=== PATIENT | female | born 1935 | race Caucasian/White ===

== ENCOUNTER → 2022-02-28 14:37 | Outpatient (BNVA) | payer MEDICARE, MEDICAID, SELFPAY | PROVIDERS: PCP Registered Nurse; Visit Provider Registered Nurse | DX: M54.50 Low back pain, unspecified (principal) | CPT/HCPCS: 81000 ==

== ENCOUNTER 2022-03-04 01:46 | Inpatient (IN) | payer MEDICARE, MEDICAID, SELFPAY ==
[2022-03-04] VITALS (9 sets, daily range): BP systolic 124–150; BP diastolic 71–78; PULSE 64–97; RESP 16–18; TEMP 36.7–36.8; O2SAT 95–98; BMI 35.4
--- NOTE | 2022-03-04 03:06 | CTR_ITS ---
PROCEDURE INFORMATION: Exam: CT Lumbar Spine Without Contrast Exam date and time: 03/04/2022 3:27 AM Age: 87 years old Clinical indication: Prior surgery; Surgery type: Lumbar (unspecified); Patient HX: C/O low back pain that radiates down to both hips. TECHNIQUE: Imaging protocol: Computed tomography of the lumbar spine without contrast. Radiation optimization: All CT scans at this facility use at least one of these dose optimization techniques: automated exposure control; mA and/or kV adjustment per patient size (includes targeted exams where dose is matched to clinical indication); or iterative reconstruction. COMPARISON: CR XR lumbar spine 2-3V* [id number] 12/27/2021 12:42 PM RADIATION DOSE METRICS: Total DLP (mGy-cm): 1189.53 FINDINGS: Bones/joints: There are 5 non rib-bearing lumbar vertebral segments. Minimal leftward curvature of the mid lumbar spine is seen. Postsurgical changes are seen status post prior L5 laminectomy. Posterior L2 vertebral body lytic lesion is seen with destruction of the posterior wall of the vertebral body (series 6 images 33-38 and series 4 images 32-40). This may represent metastatic disease or myeloma. Further assessment may be performed with MRI and bone scan. Is there are no other definite visualized lytic lesion seen. There is generalized osteopenia. There are no fractures. There is 1 mm retrolisthesis of L2 on L3. The spinous processes appear unremarkable. There are no pars interarticularis defects seen. T12-L1: There is mild diffuse disc bulge. Mild bilateral facet degenerative changes are seen. There is no central spinal stenosis. There is no neuroforaminal stenosis. L1-L2: There is [id number] diffuse disc bulge. Moderate bilateral facet degenerative changes. The lateral recesses appear unremarkable. There is no central spinal stenosis. There is no neuroforaminal stenosis. L2-L3: There is moderate diffuse disc bulge. Moderate bilateral facet degenerative changes are seen. Moderate mass effect on the lateral recesses. There is no central spinal stenosis. Mild bilateral foraminal stenosis. L3-L4: There is moderate diffuse disc bulge. Severe bilateral facet degenerative changes are seen with mild hypertrophy of the ligamentum flavum. Moderate to severe central spinal stenosis on CT. [id number] right and mild left foraminal stenosis. L4-L5: Moderate diffuse disc bulge. Postsurgical changes status post prior L5 laminectomy. Severe bilateral facet degenerative changes. Moderate mass effect on the lateral recesses. There is no central spinal stenosis. Moderate left foraminal stenosis. L5-S1: Moderate diffuse disc bulge with small posterior degenerative osteophytes. Severe bilateral facet degenerative changes. Moderate mass effect on the lateral recesses. There is no central spinal stenosis. Severe right and moderate left foraminal stenosis. Soft tissues: Postsurgical changes of the posterior paraspinal soft tissues are seen at the L5 level. Multiple bilateral renal simple cysts are seen. Recommend correlation with the abdominal CT. Notes: If there is further concern, CT myelogram or MRI of the lumbar spine may be performed for complete assessment. CT/CT lumbar spine recon [id number] IMPRESSION: 1. Posterior L2 vertebral body lytic lesion with destruction of the posterior wall of the vertebral body (series 6 images 33-38 and series 4 images 32-40). This may represent metastatic disease or myeloma. Further assessment may be performed with MRI and bone scan. 2. Degenerative changes of the lumbar spine, as noted above. Moderate to severe central spinal stenosis at the L4-L5 level. Some moderate to severe foraminal stenoses at the L4-L5 and L5-S1 levels, as noted above. Postsurgical changes status post prior L5 laminectomy. COMMENTS: Consistent with the [employer]'s Incidental Findings Committee white paper (J Am Edith Radiol 2018): Any incidental renal lesion less than 1 cm or classified as too small to characterize, or any incidental cystic renal lesion characterized as simple-appearing, is likely benign. No follow-up imaging is recommended for these lesions per consensus recommendations based on imaging criteria.
--- NOTE | 2022-03-04 03:07 | CTR_ITS ---
PROCEDURE INFORMATION: Exam: CT Abdomen And Pelvis Without Contrast Exam date and time: 03/04/2022 3:27 AM Age: 87 years old Clinical indication: Abdominal pain; Prior surgery; Surgery type: Gb. Bilat oophorectomy. Lumbar (unspecified); Patient HX: C/O bilateral flank pain. History of ckd. ; Additional info: Bilateral flank pain, back pain TECHNIQUE: Imaging protocol: Computed tomography of the abdomen and pelvis without contrast. Radiation optimization: All CT scans at this facility use at least one of these dose optimization techniques: automated exposure control; mA and/or kV adjustment per patient size (includes targeted exams where dose is matched to clinical indication); or iterative reconstruction. COMPARISON: CT kidney stone [id number] 02/12/2018 7:38 PM RADIATION DOSE METRICS: Total DLP (mGy-cm): 1189.53 FINDINGS: Lungs: Minimal subpleural scarring is seen. There is mild cardiomegaly noted. Liver: See Gallbladder and bile ducts finding. Gallbladder and bile ducts: Status post prior cholecystectomy. Unchanged mildly dilated extrahepatic/common bile duct is seen with maximal diameter of 9 mm. No calcified stones. Pancreas: Appears unremarkable on the non-contrast CT. No ductal dilation. Spleen: Appears unremarkable on the non-contrast CT. No splenomegaly. Adrenal glands: Normal. No mass. Kidneys and ureters: Unchanged right kidney upper pole 7.5 x 5.5 cm and 4.6 x 4.6 cm simple cysts are seen. Unchanged smaller simple right kidney mid zone and lower pole cysts are seen. Unchanged left kidney mid zone and lower pole simple cysts are seen, the largest measuring 6 x 5.1 cm. Bilateral kidney mid zone 1 x 1 mm calculi are seen. No hydronephrosis, ureterectasis or ureteral calculi. Stomach and bowel: The non-contrast opacified stomach is not well distended with relative gastric fold prominence. Assessment is limited. Tiny suspected hiatal hernia. The noncontrast opacified small bowel loops appear unremarkable. The noncontrast opacified loops of colon show colonic diverticulosis, moderate to severe in the sigmoid colon region. The lack of orally administered contrast material limits assessment. Appendix: No CT evidence of appendicitis. Intraperitoneal space: No abdominal ascites. No free air. Some benign phleboliths seen in the pelvis. Vasculature: No abdominal aortic aneurysm. Unchanged moderate atherosclerotic vascular calcifications. Lymph nodes: No enlarged lymph nodes. Urinary bladder: No bladder debris. No wall thickening. Reproductive: Unremarkable as visualized. Bones/joints: There is generalized osteopenia. Lytic posterior L2 vertebral body lesion is seen, measuring 1.6 x 1.6 cm. The lesion extends into the posterior vertebral body wall. This may represent osseous metastatic disease or myeloma. Further assessment may be performed with bone scan and/or MRI. Severe degenerative disc disease changes with disc space narrowing are seen at the L5-S1 level. Associated severe degenerative facet disease changes are seen with moderate foraminal stenosis. There is generalized osteopenia. Jqds-fy-sqwbrpat bilateral hip, moderate symphysis pubis and moderate bilateral sacroiliac joint degenerative changes are seen. Soft tissues: Unremarkable. CT/CT kidney stone [id number] IMPRESSION: 1. Lytic posterior L2 vertebral body lesion, measuring 1.6 x 1.6 cm. The lesion extends into the posterior vertebral body wall. This may represent osseous metastatic disease or myeloma. Further assessment may be performed with bone scan and/or MRI. 2. Chronic changes, as noted above.
[2022-03-04 03:25] LABS: Basophils % 0.5 %; Eosinophils # 0.1 10^3/uL (0.0-0.8); Eosinophils % 0.7 %; Hematocrit 35.7 % (37.0-47.0); Hemoglobin 10.9 g/dL (11.5-15.3); Lymphocytes # 1.1 10^3/uL (0.8-4.8); Lymphocytes % 12.8 %; Mean Corpuscular HGB Conc 30.5 g/dL (30.0-36.0); Mean Corpuscular Hemoglobin 29.3 pg (28.0-34.0); Mean Platelet Volume 11.3 fL (7.4-10.4); Monocytes # 0.7 10^3/uL (0.2-0.9); Monocytes % 8.1 %; Neutrophils # 6.85 10^3/uL (1.8-7.7); Neutrophils % 77.7 %; Nucleated Red Blood Cells % 0 %; Platelet Count 190 10^3/cmm (130-400); Red Blood Count 3.72 10^6/uL (4.1-5.3); Red Cell Distribution Width 14.1 % (12.1-15.1); White Blood Count 8.8 10^3/uL (4.0-10.0)
--- NOTE | 2022-03-04 03:25 | W.ED.BACK ---
HPI - Back Pain/Injury General: Chief Complaint: Back Pain/Injury Stated Complaint: Hip Pain\Back Pain\Sob Time Seen by Provider: 03/04/22 02:25 Source: patient History of Present Illness: 87-year-old female who had a stroke a couple months ago. She was in the rehab hospital until 1 week ago. After coming home, she began to develop first left then right sided lower back discomfort. It radiates to her thighs and into her groin. She denies fever, vomiting, dysuria. She is chronically incontinent of her urine, but has no bowel incontinence. No numbness to the groin or anesthesia to the genitals. She denies any fall or trauma. Her daughter is with her and confirms MD elicited complaint: back pain Pertinent past history: other Onset (ago): day(s) Timing: constant and progressively worsening Severity: severe Quality: sharp and stabbing Location: lumbar spine Radiation: groin, left upper leg and right upper leg Exacerbating factors: walking Relieving factors: none Associated symptoms: Reports abdominal pain, nausea and urinary urgency; Deny chills, change in bowel habits, dysuria, fecal incontinence, fever(s), hematuria or numbness Review of Systems Const: Denies: fever(s) or chills Card: Denies: chest pain Resp: Reports: dyspnea (When in pain); Denies: productive cough or non-productive cough GI: Reports: abdominal pain and nausea; Denies: fecal incontinence or change in bowel habits : Reports: urinary urgency; Denies: dysuria or hematuria Neuro: Denies: headache(s) [facility] PFS: Medical History (Updated 03/04/22 @ 19:43 by Matt Portillo DO) Actinic keratosis left forearm, removed Anemia At high risk for falls Atrial fibrillation with RVR Basal cell carcinoma left earlobe, removed Cerebrovascular accident with involvement of left side of body CHF (congestive heart failure) Chronic a-fib Chronic anticoagulation Eliquis, for chronic afib Chronic cystitis CKD (chronic kidney disease) COVID-19 (~07/2020) Diabetes Dyslipidemia Feeling of incomplete bladder emptying Glucose intolerance prediabetes, on metformin Hypertension Hypothyroidism Incontinent of urine Left shoulder pain Osteoarthritis of left shoulder Surgical History H/O bilateral oophorectomy History of back surgery lumbar Hx of cholecystectomy several complications requiring additional procedures post op Hx of total knee replacement Family History Father , at age 79 Diabetes Daughter Stroke Family/Other Stroke Aunt Social History Smoking and tobacco status: never smoked Alcohol intake: never Adopted: No Lives independently: Yes Housing: House Current occupational status: retired Female Reproductive History: Para: 6 Spontaneous abortions: Yes (1) Physical Exam Const: GENERAL APPEARANCE: cooperative and frail appearing HENMT: COMMON NORMALS: normocephalic, atraumatic and Normal external nose present HEAD & SCALP: normocephalic and atraumatic NOSE: Normal external nose present Eye: COMMON NORMALS: EOMs intact bilaterally Neck/C-Spine: COMMON NORMALS: full ROM GENERAL: Yes trachea midline CERVICAL SPINE: Yes cervical ROM normal and No Cervical spine tenderness Resp: COMMON NORMALS: normal respiratory effort, No use of accessory muscles and clear to auscultation bilaterally AUSCULTATION: clear to auscultation bilaterally Cardio: COMMON NORMALS: regular rate and regular rhythm RATE: regular rate RHYTHM: regular rhythm GI: COMMON NORMALS: Normal to inspection, nondistended, normoactive bowel sounds present and Soft to palpation PALPATION: Yes Soft to palpation : COMMON NORMALS: Yes no CVA tenderness BLADDER/KIDNEY EXAM: Yes no CVA tenderness Back/Pelvis: COMMON NORMALS: no CVA tenderness OTHER: Exam of the lumbar spine reveals tenderness over the midline at L3-4 and 5 there is less tenderness over the facet joints. Straight leg raise test is negative on the right positive on the left Extremity: COMMON NORMALS: no pedal edema Neuro: AMBROSE COMA SCALE: document GCS findings Ambrose coma scale eye opening: Spontaneous White coma scale verbal response: Orientated Ambrose coma scale motor response: Obey commands White coma scale total score: 15 SPEECH: speech normal Psych: COMMON NORMALS: cooperative Course Vital Signs: Vital signs: Vital Signs Temperature 98.2 F 03/04/22 15:11 Pulse Rate 68 03/04/22 15:11 Respiratory Rate 17 03/04/22 15:11 Blood Pressure 129/78 03/04/22 15:11 Pulse Oximetry 95 03/04/22 15:30 Oxygen Delivery Me thod 03/04/22 15:30 Oxygen Flow Rate 2 03/04/22 15:30 MDM - Back Pain/Injury Medical Decision Making 87-year-old female with back pain and weakness. She has a posterior L2 vertebral body lytic lesion on CT. This gives the appearance of destructive metastatic lesion. Likely the reason for her pain and weakness. Her hemoglobin is 11. BUN 29 creatinine 1.1. She is unable to walk. She lives at home with her daughter currently. She will be admitted for pain control, therapy, etc. She may require extended rehab stay. She is not a good surgical candidate hospitalist will evaluate in the ER. Labs : 03/04/22 03:15 03/04/22 03:15 Radiology Impressions Lumbar Spine CT 03/04/22 03:06 IMPRESSION: 1. Posterior L2 vertebral body lytic lesion with destruction of the posterior wall of the vertebral body (series 6 images 33-38 and series 4 images 32-40). This may represent metastatic disease or myeloma. Further assessment may be performed with MRI and bone scan. 2. Degenerative changes of the lumbar spine, as noted above. Moderate to severe central spinal stenosis at the L4-L5 level. Some moderate to severe foraminal stenoses at the L4-L5 and L5-S1 levels, as noted above. Postsurgical changes status post prior L5 laminectomy. COMMENTS: Consistent with the [employer]'s Incidental Findings Committee white paper (J Am Edith Radiol 2018): Any incidental renal lesion less than 1 cm or classified as too small to characterize, or any incidental cystic renal lesion characterized as simple-appearing, is likely benign. No follow-up imaging is recommended for these lesions per consensus recommendations based on imaging criteria. Abdomen/Pelvis CT 03/04/22 03:07 IMPRESSION: 1. Lytic posterior L2 vertebral body lesion, measuring 1.6 x 1.6 cm. The lesion extends into the posterior vertebral body wall. This may represent osseous metastatic disease or myeloma. Further assessment may be performed with bone scan and/or MRI. 2. Chronic changes, as noted above. Chest CT 03/04/22 11:44 IMPRESSION: 1. L2 vertebral body 15 mm lytic bony lesion seen posteriorly, concerning for metastatic disease, MRI could further evaluate this. 2. Cardiomegaly. 3. Coronary artery atherosclerotic calcifications. 4. Cholecystectomy. 5. Bilateral renal cysts, negative for follow-up advised. 6. Constipation. 7. Diverticulosis without diverticulitis. 8. Scattered prominent mediastinal lymph nodes measuring up to 12 mm, nonspecific. COMMENTS: Consistent with the [employer]'s Incidental Findings Committee white paper (J Am Edith Radiol 2018): Any incidental renal lesion less than 1 cm or classified as too small to characterize, or any incidental cystic renal lesion characterized as simple-appearing, is likely benign. No follow-up imaging is recommended for these lesions per consensus recommendations based on imaging criteria. Laboratory Results WBC 8.8 10^3/uL (4.0-10.0) 03/04/22 03:15 RBC 3.72 10^6/uL (4.1-5.3) L 03/04/22 03:15 Hgb 10.9 g/dL (11.5-15.3) L 03/04/22 03:15 Hct 35.7 % (37.0-47.0) L 03/04/22 03:15 MCV 96.0 fl (81-99) 03/04/22 03:15 MCH 29.3 pg (28.0-34.0) 03/04/22 03:15 MCHC 30.5 g/dL (30.0-36.0) 03/04/22 03:15 RDW 14.1 % (12.1-15.1) 03/04/22 03:15 Plt Count 190 10^3/cmm (130-400) 03/04/22 03:15 MPV 11.3 fL (7.4-10.4) H 03/04/22 03:15 Neut % (Auto) 77.7 % 03/04/22 03:15 Lymph % (Auto) 12.8 % 03/04/22 03:15 [place] % (Auto) 8.1 % 03/04/22 03:15 Eos % (Auto) 0.7 % 03/04/22 03:15 Baso % (Auto) 0.5 % 03/04/22 03:15 Neut # (Auto) 6.85 10^3/uL (1.8-7.7) 03/04/22 03:15 Lymph # (Auto) 1.1 10^3/uL (0.8-4.8) 03/04/22 03:15 [place] # (Auto) 0.7 10^3/uL (0.2-0.9) 03/04/22 03:15 Eos # (Auto) 0.1 10^3/uL (0.0-0.8) 03/04/22 03:15 Baso # (Auto) 0.0 10^3/uL (0.0-0.1) 03/04/22 03:15 Nucleated RBC % (auto) 0 % 03/04/22 03:15 Nucleated RBCs # 0.0 /100WBC 03/04/22 03:15 Sodium 134 mmol/L (136-145) L 03/04/22 03:15 Potassium 4.0 mmol/L (3.5-5.1) 03/04/22 03:15 Chloride 97 mmol/L (98-107) L 03/04/22 03:15 Carbon Dioxide 28 mmol/L (22-29) 03/04/22 03:15 Anion Gap 13.0 (5-19) 03/04/22 03:15 BUN 29 mg/dL (8-23) H 03/04/22 03:15 Creatinine 1.1 mg/dL (0.5-0.9) H 03/04/22 03:15 GFR Calculation Not Reportable 03/04/22 03:15 Glucose 132 mg/dL (65-115) H 03/04/22 03:15 Calculated Osmolality 286 mOsm/kg (285-295) 03/04/22 03:15 Lactate 1.4 mmol/L (0.5-2.2) 03/04/22 03:15 Calcium 9.5 mg/dL (8.5-10.5) 03/04/22 03:15 Iron 25 ug/dL (37-145) L 03/04/22 03:15 TIBC 312 mcg/dl 03/04/22 03:15 % Saturation 8.0 % (20-50) L 03/04/22 03:15 Unsat Iron Binding 287 ug/dL (112-347) 03/04/22 03:15 Total Bilirubin 0.4 mg/dL (0.15-1.2) 03/04/22 03:15 AST 12 U/L (0-32) 03/04/22 03:15 ALT 7 U/L (0-33) 03/04/22 03:15 Alkaline Phosphatase 98 U/L (35-105) 03/04/22 03:15 C-Reactive Protein 42.9 mg/L (0.0-4.9) H 03/04/22 03:15 Total Protein 7.4 g/dL (6.6-8.7) 03/04/22 03:15 Albumin 3.3 g/dL (3.5-5.2) L 03/04/22 03:15 Globulin 4.1 g/dL (1.3-4.6) 03/04/22 03:15 Vitamin B12 321 pg/mL (232-1245) 03/04/22 03:15 Procalcitonin 0.06 ng/mL (0-0.5) 03/04/22 03:15 Discharge Plan Discharge Patient Disposition: Admitted As Inpatient Admit Provider: Taina Alegria Clinical Impression: Intractable back pain, At high risk for falls Condition: Stable Coding Level of Care Code ED Metal Buffer for Anug Fwd Exam Comprehensive
[2022-03-04] MEDS: ondansetron 2 mg/ML SDV 2 mL 4 MG IVP (03:32)
[2022-03-04] MEDS: morphine 4 mg/mL SDV 1 mL 2 MG IVP ×3 (03:32→12:49)
[2022-03-04 03:46] LABS: Lactate (Lactic Acid level) 1.4 mmol/L (0.5-2.2)
[2022-03-04 03:47] LABS: Alanine Aminotransferase 7 U/L (0-33); Albumin Level 3.3 g/dL (3.5-5.2); Alkaline Phosphatase 98 U/L (35-105); Aspartate Amino Transferase 12 U/L (0-32); Blood Urea Nitrogen 29 mg/dL (8-23); C Reactive Protein 42.9 mg/L (0.0-4.9); Calcium 9.5 mg/dL (8.5-10.5); Carbon Dioxide 28 mmol/L (22-29); Chloride 97 mmol/L (98-107); Globulin 4.1 g/dL (1.3-4.6); Glucose 132 mg/dL (65-115); Osmolality Calculated 286 mOsm/kg (285-295); Sodium 134 mmol/L (136-145); Total Bilirubin 0.4 mg/dL (0.15-1.2); Total Protein 7.4 g/dL (6.6-8.7)
[2022-03-04 03:57] LABS: Creatinine Clr Calc Pharmacy 37.7973
--- NOTE | 2022-03-04 11:23 | PM.HP ---
Providers/Chief Complaint Admitting Physician: Taina Alegria MD Primary Care Provider: RUDDY Varma Chief Complaint: Hip Pain\Back Pain\Sob History of Present Illness Evelia Denton is a 87 year old female with past medical history of chronic A. fib, chronic anticoagulation with Eliquis, diabetes mellitus, hypothyroidism, recent admission to the hospital in December for acute CVA, COVID-19 was brought into the ER today because of ongoing severe back pain since Sunday. Patient states she was discharged to senior care and was discharged from senior care back home on last Sunday. Since Sunday she has been having severe back pain which has been getting worse getting aggravated on walking. Not associated with bladder or bowel accidents or perianal anesthesia or numbness or weakness in her legs. States pain is getting worse on standing up radiating to abdomen and bilateral groins. She denies of having any trauma or fall prior to the pain starting. Blood work in the ER showed a hemoglobin of 10.9, sodium of 134, chloride of 97, creatinine of 1.1, calcium of 9.5, AST/ALT of 12/7, CRP of 42.9. Lumbar abdominal CT scan were done and were reported as below. Review of Systems General: Reports: 10 or more systems reviewed and unremarkable except in HPI and below Const: Denies: fever(s), chills, body aches, change in appetite, change in weight, malaise, night sweats, diaphoresis, change in sleep pattern, daytime sleepiness or snoring Eyes: Denies: change in vision, blurry vision, photophobia, eye discomfort or eye discharge ENMT: Denies: throat pain, enlarged tonsils, hoarseness, mouth pain, oral sores, dry mouth, tinnitus, nasal congestion or post nasal drip Card: Denies: chest pain, palpitations, irregular heart rhythm, edema, swelling of feet/ankles, lightheadedness, syncope, pre-syncope, dyspnea on exertion, orthopnea, leg pain with exertion or acrocyanosis Resp: Denies: dyspnea, productive cough, non-productive cough, wheezing, stridor, pain on inspiration, change in phlegm color, hemoptysis or chest congestion GI: Denies: abdominal pain, nausea, vomiting, hematemesis, coffee ground emesis, dysphagia, heartburn, diarrhea, constipation, bloating, GI cramping, change in bowel habits, pain on defecation, hematochezia or melena : Denies: flank pain, dysuria, urinary frequency, urinary urgency, urinary hesitancy, nocturia or hematuria Musc: Denies: neck pain, back pain, extremity pain, joint pain, joint swelling, joint redness, joint stiffness or limited range of motion Neuro: Denies: headache(s), numbness in extremities, weakness in extremities, sensory changes, lack of coordination, difficulty walking, frequent falls, dizziness, vertigo, confusion, Slurred speech present, difficulty communicating thoughts or seizure-like activity Psych: Denies: anxiety, depression, mood swings, panic attacks, hopelessness or irritability Endo: Denies: polyuria, polydipsia, tired all the time, cold intolerance, excessive sweating, flushing or heat intolerance Elvis/Lymph: Denies: easy bruising or easy bleeding All/Imm: Denies: tongue swelling, facial swelling or acute wheezing Medications/Allergies Home Medications Medication Instructions Recorded Confirmed Last Taken Type valsartan 160 mg tablet 160 mg PO DAILY #90 tabs 05/28/19 02/28/22 12/26/21 Rx apixaban 5 mg tablet (Eliquis) 5 mg PO BID 06/02/19 02/28/22 12/26/21 History esomeprazole magnesium 40 mg 40 mg PO DAILY 06/02/19 02/28/22 12/26/21 History capsule,delayed release (Nexium) furosemide 40 mg tablet (Lasix) 40 mg PO QAM 06/02/19 02/28/22 12/26/21 History levothyroxine 100 mcg capsule 100 mcg PO DAILY 06/02/19 02/28/22 12/26/21 History methenamine mandelate 1 gram tablet 1 gm PO BID 06/02/19 02/28/22 12/26/21 History potassium chloride 20 mEq oral 20 meq PO DAILY 06/02/19 02/28/22 12/26/21 History packet Diabetic Shoes #1 ea 06/09/19 02/28/22 Unknown Rx ascorbic acid (vitamin C) 1,000 mg 1,000 mg PO BID 11/10/19 02/28/22 12/26/21 History tablet ferrous sulfate 325 mg (65 mg 325 mg PO DAILY 11/10/19 02/28/22 12/26/21 History iron) tablet (Feosol) levocetirizine 5 mg tablet 5 mg PO DAILY 11/10/19 02/28/22 12/26/21 History Incontinent supplies #120 ea 08/23/20 02/28/22 Unknown Rx amlodipine 5 mg tablet 5 mg PO DAILY 12/27/21 02/28/22 12/26/21 History calcium carbonate 500 mg calcium 500 mg PO DAILY 12/27/21 02/28/22 12/26/21 History (1,250 mg) tablet ergocalciferol (vitamin D2) 1,250 1,250 mcg PO Q7D 12/27/21 02/28/22 12/25/21 History mcg (50,000 unit) capsule fluticasone propionate 50 1 spray intranasal BID PRN Nasal 12/27/21 02/28/22 Unknown History mcg/actuation nasal Congestion spray,suspension (Flonase Allergy Relief) metformin 500 mg tablet,extended 500 mg PO DAILY 12/27/21 02/28/22 12/26/21 History release 24 hr tramadol 50 mg tablet 25 mg PO BID PRN Pain 12/27/21 02/28/22 Unknown History atorvastatin 40 mg tablet 80 mg PO BEDTIME #30 tabs 12/30/21 02/28/22 Unknown Rx metoprolol tartrate 25 mg tablet 25 mg PO BID@ #60 tabs 12/30/21 02/28/22 Unknown Rx Arm Supports for walker #1 ea 03/02/22 03/02/22 Unknown Rx Lift Chair #1 ea 03/02/22 03/02/22 Unknown Rx Allergies Allergy/AdvReac Type Severity Reaction Status Date / Time cephalexin [From Keflex] Allergy ALGY-Rash Verified 01/05/22 10:58 Iodinated Contrast Media Allergy ALGY-Swell Verified 01/05/22 10:58 Lip/Tongue/Throat Penicillins Allergy ALGY-Rash Verified 01/05/22 10:58 PFSH Acute PFSH: Medical History (Updated 03/04/22 @ 11:28 by Ryan Higginbotham MD) Actinic keratosis left forearm, removed Anemia At high risk for falls Atrial fibrillation with RVR Basal cell carcinoma left earlobe, removed Cerebrovascular accident with involvement of left side of body CHF (congestive heart failure) Chronic a-fib Chronic anticoagulation Eliquis, for chronic afib Chronic cystitis CKD (chronic kidney disease) COVID-19 (~07/2020) Diabetes Dyslipidemia Feeling of incomplete bladder emptying Glucose intolerance prediabetes, on metformin Hypertension Hypothyroidism Incontinent of urine Left shoulder pain Osteoarthritis of left shoulder Surgical History H/O bilateral oophorectomy History of back surgery lumbar Hx of cholecystectomy several complications requiring additional procedures post op Hx of total knee replacement Family History Father , at age 79 Diabetes Daughter Stroke Family/Other Stroke Aunt Social History Smoking and tobacco status: never smoked Alcohol intake: never Adopted: No Lives independently: Yes Housing: House Current occupational status: retired Female Reproductive History: Para: 6 Spontaneous abortions: Yes (1) Vitals/I&O/Wt Last Vital Signs Temp 98.0 F 03/04/22 01:51 Pulse 64 03/04/22 08:00 Resp 16 03/04/22 06:58 BP 130/77 03/04/22 08:00 Pulse Ox 97 03/04/22 08:00 O2 Del Method 03/04/22 09:15 O2 Flow Rate 2 03/04/22 06:58 Weight last 48 hrs Weight 90.718 kg Physical Exam Narrative: General: No acute distress, AO x3 HEENT: PERRLA, pupils bilaterally equal and reactive Chest: Normal vesicular breath sounds, no added sounds, equal good air entry bilaterally CVS: S1-S2 regular, no murmurs, no tachycardia, no gallops, no rubs Abdomen: Soft, nontender, no organomegaly, bowel sounds present Neuro: No focal deficits, no facial deformity, AO x3, power 5/5 in all limbs Data : 03/04/22 03:15 03/04/22 03:15 Other Labs: Radiology Impressions Lumbar Spine CT 03/04/22 03:06 IMPRESSION: 1. Posterior L2 vertebral body lytic lesion with destruction of the posterior wall of the vertebral body (series 6 images 33-38 and series 4 images 32-40). This may represent metastatic disease or myeloma. Further assessment may be performed with MRI and bone scan. 2. Degenerative changes of the lumbar spine, as noted above. Moderate to severe central spinal stenosis at the L4-L5 level. Some moderate to severe foraminal stenoses at the L4-L5 and L5-S1 levels, as noted above. Postsurgical changes status post prior L5 laminectomy. COMMENTS: Consistent with the [employer]'s Incidental Findings Committee white paper (J Am Edith Radiol 2018): Any incidental renal lesion less than 1 cm or classified as too small to characterize, or any incidental cystic renal lesion characterized as simple-appearing, is likely benign. No follow-up imaging is recommended for these lesions per consensus recommendations based on imaging criteria. Abdomen/Pelvis CT 03/04/22 03:07 IMPRESSION: 1. Lytic posterior L2 vertebral body lesion, measuring 1.6 x 1.6 cm. The lesion extends into the posterior vertebral body wall. This may represent osseous metastatic disease or myeloma. Further assessment may be performed with bone scan and/or MRI. 2. Chronic changes, as noted above. A&P Assessment and plan (1) Intractable back pain: Appreciate CT lumbar spine. Consistent for a possible lytic lesion. Pain not managed by outpatient oral pain management. Start on IV morphine 2 mg every 4 hour as needed. Tramadol 50 mg every 6 hour as needed. Physical therapy evaluation Will consult orthopedic spine once available tomorrow for further evaluation and management. For further evaluation for possible malignancy and multiple myeloma we will send UPEP/SPEP, electrophoresis, light chain assay, CT chest, peripheral smear. (2) Hypertension: Qualifiers: Hypertension type: primary hypertension Qualified Code(s): I10 - Essential (primary) hypertension (3) Atrial fibrillation with RVR: (4) Chronic anticoagulation: Plan History of recent stroke History of atrial fibrillation History of chronic anticoagulation History of hypertension History of hypothyroidism Recent echocardiogram from December 2021 shows a normal EF, diastolic dysfunction, biatrial enlargement. Continue other chronic medications. Full code. Famotidine for VT prophylaxis Eliquis for prior DVT prophylaxis Attestations Medical Necessity Statement*: Admission under observation for less than 2 midnights for management of intractable back pain while further etiology is sought. Time Spent in Patient Care: Greater than 35 minutes Coding Level of Care Code Acute Rn Patient Care for Chg Fwd Diagnoses Intractable back pain M54.9 Hypertension I10 Hypertension type: primary hypertension Atrial fibrillation with RVR I48.91 Chronic anticoagulation Z79.01
[2022-03-04] MEDS: sodium chloride 0.9% 1,000 ML 50 ML IV (11:28)
--- NOTE | 2022-03-04 11:44 | CTR_ITS ---
PROCEDURE INFORMATION: Exam: CT Chest Without Contrast; Diagnostic Exam date and time: 03/04/2022 2:11 PM Age: 87 years old Clinical indication: Other: Back pain; Additional info: Possible malignancy TECHNIQUE: Imaging protocol: Diagnostic computed tomography of the chest without contrast. Radiation optimization: All CT scans at this facility use at least one of these dose optimization techniques: automated exposure control; mA and/or kV adjustment per patient size (includes targeted exams where dose is matched to clinical indication); or iterative reconstruction. COMPARISON: CR XR chest 1V portable [id number] 05/25/2019 7:00 PM RADIATION DOSE METRICS: Total DLP (mGy-cm): 595.75 FINDINGS: Lungs: Unremarkable. No consolidation. No masses. Pleural spaces: Unremarkable. No pneumothorax. No pleural effusion. Heart: Cardiomegaly. Coronary artery atherosclerotic calcifications. Lymph nodes: Scattered prominent mediastinal lymph nodes measuring up to 12 mm, nonspecific. Vasculature: Unremarkable. No aortic aneurysm. Gallbladder and bile ducts: Cholecystectomy. Kidneys and ureters: Bilateral renal cysts, negative for follow-up advised. Stomach and bowel: Constipation. Diverticulosis without diverticulitis. Bones/joints: L2 vertebral body 15 mm lytic bony lesion seen posteriorly, concerning for metastatic disease, MRI could further evaluate this. Soft tissues: Hepatic dome 14 mm benign-appearing fat density lesion. CT/CT chest wo con [id number] IMPRESSION: 1. L2 vertebral body 15 mm lytic bony lesion seen posteriorly, concerning for metastatic disease, MRI could further evaluate this. 2. Cardiomegaly. 3. Coronary artery atherosclerotic calcifications. 4. Cholecystectomy. 5. Bilateral renal cysts, negative for follow-up advised. 6. Constipation. 7. Diverticulosis without diverticulitis. 8. Scattered prominent mediastinal lymph nodes measuring up to 12 mm, nonspecific. COMMENTS: Consistent with the [employer]'s Incidental Findings Committee white paper (J Am Edith Radiol 2018): Any incidental renal lesion less than 1 cm or classified as too small to characterize, or any incidental cystic renal lesion characterized as simple-appearing, is likely benign. No follow-up imaging is recommended for these lesions per consensus recommendations based on imaging criteria.
[2022-03-04 12:27] LABS: Iron 25 ug/dL (37-145); Total Iron Binding Capacity 312 mcg/dl; Unsaturated Iron Binding 287 ug/dL (112-347)
[2022-03-04 12:43] LABS: Procalcitonin 0.06 ng/mL (0-0.5); Vitamin B12 321 pg/mL (232-1245)
[2022-03-04 13:03] LABS: Calcium 9.2 mg/dL (8.5-10.5)
[2022-03-04 13:12] LABS: Thyroid Stimulating Hormone 1.88 uIU/mL (0.27-4.20)
[2022-03-04 13:22] LABS: Folate Level 8.3 ng/mL (4.8-37.3)
[2022-03-04 14:14] LABS: Parathyroid Hormone 27.7 pg/mL (15-65)
[2022-03-04 14:57] LABS: LAB Peripheral Smear Sent for Review
[2022-03-04 15:21] LABS: Add Urine Microscopic? YES; Bilirubin Urine Neg (Negative); Blood Urine 2+ (Negative); Glucose Urine UA Norm (Normal); Ketones Urine Negative (Negative); Leukocyte Esterase Urine 2+ (Negative); Nitrate Urine Positive (Negative); Protein Urine Neg (Negative); Urine Appearance SL Hazy (CLEAR); Urine Color Yellow (Yellow); Urobilinogen Urine Norm (Negative); pH Urine 5 (5-7)
[2022-03-04 15:22] LABS: Add Urine Culture? Yes; Bacteria Urine 2+ /hpf; WBC Urine >100 /hpf (0-5)
[2022-03-04] MEDS: famotidine 20 mg Tablet PO (17:12)
[2022-03-04] MEDS: ferrous gluconate 324 mg Tablet PO (17:12)
[2022-03-04] MEDS: docusate sodium 100 mg Capsule PO (17:12)
[2022-03-04] MEDS: sennosides 8.6 mg Tablet 17.2 MG PO (20:46)
[2022-03-04] MEDS: apixaban 5 mg Tablet PO (20:46)
[2022-03-04] MEDS: atorvastatin 40 mg Tablet 80 MG PO (20:47)
[2022-03-04] MEDS: acetaminophen 325 mg Tablet 650 MG PO (22:32)
[2022-03-05] VITALS (12 sets, daily range): BP systolic 105–159; BP diastolic 58–78; PULSE 60–93; RESP 15–16; TEMP 36.5–36.7; O2SAT 96–99
[2022-03-05] MEDS: acetaminophen 325 mg Tablet 650 MG PO ×3 (04:17→20:54)
[2022-03-05] MEDS: sodium chloride 0.9% 1,000 ML 50 ML IV ×2 (04:18→23:05)
[2022-03-05 05:21] LABS: Basophils % 0.6 %; Eosinophils # 0.1 10^3/uL (0.0-0.8); Eosinophils % 2.5 %; Hematocrit 32.6 % (37.0-47.0); Hemoglobin 9.9 g/dL (11.5-15.3); Mean Corpuscular HGB Conc 30.4 g/dL (30.0-36.0); Mean Corpuscular Hemoglobin 29.6 pg (28.0-34.0); Mean Corpuscular Volume 97.6 fl (81-99); Mean Platelet Volume 11.4 fL (7.4-10.4); Monocytes # 0.5 10^3/uL (0.2-0.9); Monocytes % 9.4 %; Neutrophils % 67.3 %; Nucleated Red Blood Cells % 0 %; Platelet Count 153 10^3/cmm (130-400); Red Blood Count 3.34 10^6/uL (4.1-5.3); Red Cell Distribution Width 14.1 % (12.1-15.1); White Blood Count 5.2 10^3/uL (4.0-10.0)
[2022-03-05 05:35] LABS: Estmated Average Glucose 100; Hemoglobin A1C 5.1 % (4.0-6.0)
[2022-03-05 05:46] LABS: Chol HDL Ratio 1.83 mg/dL (0.0-4.40); Cholesterol 88 mg/dL (0-200); HDL Cholesterol 48 mg/dL (60-100); LDL Cholesterol Calculated 23 mg/dL (50-129); Triglycerides 84 mg/dL (0-150); VLDL Cholestrol Calculation 17 mg/dL (0-30)
[2022-03-05 05:47] LABS: Alanine Aminotransferase < 5 U/L (0-33); Albumin Level 2.8 g/dL (3.5-5.2); Alkaline Phosphatase 72 U/L (35-105); Anion Gap 13.1 (5-19); Aspartate Amino Transferase 9 U/L (0-32); Blood Urea Nitrogen 25 mg/dL (8-23); Carbon Dioxide 27 mmol/L (22-29); Chloride 103 mmol/L (98-107); Globulin 3.4 g/dL (1.3-4.6); Glucose 101 mg/dL (65-115); Osmolality Calculated 293 mOsm/kg (285-295); Potassium 4.1 mmol/L (3.5-5.1); Sodium 139 mmol/L (136-145); Total Bilirubin 0.4 mg/dL (0.15-1.2); Total Protein 6.2 g/dL (6.6-8.7)
[2022-03-05] MEDS: ferrous gluconate 324 mg Tablet PO ×2 (09:33→18:13)
[2022-03-05] MEDS: calcium carbonate 500 mg Chew Tablet PO (09:33)
[2022-03-05] MEDS: docusate sodium 100 mg Capsule PO ×2 (09:33→18:13)
[2022-03-05] MEDS: levothyroxine 100 mcg Tablet PO (09:33)
[2022-03-05] MEDS: famotidine 20 mg Tablet PO ×2 (09:33→18:13)
[2022-03-05] MEDS: amlodipine 5 mg Tablet PO (09:34)
[2022-03-05] MEDS: losartan 50 mg Tablet PO (09:34)
[2022-03-05] MEDS: nitrofurantoin SR (BID) 100 mg Capsule PO ×2 (09:35→18:12)
[2022-03-05] MEDS: apixaban 5 mg Tablet PO ×2 (09:38→20:54)
--- NOTE | 2022-03-05 09:52 | PC.NURSE ---
Notified Dr. Mcpherson Methanemine Mandelate medication is not available in pharmacy. Notified patients daughter which stated would bring this evening.
--- NOTE | 2022-03-05 11:30 | PM.PN ---
Subjective Subjective: Seen this morning. Patient asking what do think is wrong with me Urine culture positive for gram-negative rods. Patient has overall she feels bad. Her back also hurts. Vitals/I&O/Wt Last Vital Signs Temp 98.0 F 03/05/22 08:00 Pulse 93 03/05/22 09:01 Resp 15 03/05/22 08:00 BP 159/68 03/05/22 09:34 Pulse Ox 99 03/05/22 09:01 O2 Del Method 03/05/22 09:01 O2 Flow Rate 2 03/05/22 09:01 03/04/22 03/05/22 03/05/22 22:59 06:59 14:59 Intake Total 240 / 720 841.667 / 1561.667 360 / 360 Balance 240 / 720 841.667 / 1561.667 360 / 360 Weight last 48 hrs Weight 90.718 kg Physical Exam Narrative: General: No acute distress, AO x3 HEENT: EOMI Chest: Clear to auscultation bilaterally but diminished at bases. CVS: S1-S2 regular, no murmurs, Abdomen: Soft, nontender, no organomegaly, bowel sounds present Neuro: Nonfocal Urinary Catheter Management: Marin: Cath Placed During This Visit: yes Reason for Continuing Indwelling Catheter: Required Immobilization for Trauma or Surgery or Anesthesia Urinary Catheter Date of Insertion: 03/04/22 Urinary Catheter Time of Insertion: 15:03 Data : 03/05/22 04:24 03/05/22 04:24 Micro: Microbiology 03/04/22 15:02 Urine Culture - Preliminary Urine,Clean Catch Gram Negative Rods 03/04/22 15:53 Blood Culture - Preliminary Blood SPECIMEN COLLECTED 03/04/22 15:48 Blood Culture - Preliminary Blood SPECIMEN COLLECTED A&P Assessment and plan (1) Intractable back pain: Appreciate CT lumbar spine. Consistent for a possible lytic lesion. Pain not managed by outpatient oral pain management. Start on IV morphine 2 mg every 4 hour as needed. Tramadol 50 mg every 6 hour as needed. Physical therapy evaluation Will consult orthopedic spine once available tomorrow for further evaluation and management. Dr. Garibay is not on-call today. For further evaluation for possible malignancy and multiple myeloma we will send UPEP/SPEP, electrophoresis, light chain assay, CT chest, peripheral smear. CT chest: 1. L2 vertebral body 15 mm lytic bony lesion seen posteriorly, concerning for metastatic disease, MRI could further evaluate this. 2. Cardiomegaly. 3. Coronary artery atherosclerotic calcifications. 4. Cholecystectomy. 5. Bilateral renal cysts, negative for follow-up advised. 6. Constipation. 7. Diverticulosis without diverticulitis. 8. Scattered prominent mediastinal lymph nodes measuring up to 12 mm, nonspecific. CT abdomen 1. Lytic posterior L2 vertebral body lesion, measuring 1.6 x 1.6 cm. The lesion extends into the posterior vertebral body wall. This may represent osseous metastatic disease or myeloma. Further assessment may be performed with bone scan and/or MRI. 2. Chronic changes, as noted above. We will discussed with Dr. Garibay tomorrow and possibly discharge patient for outpatient follow-up. (2) Hypertension: Qualifiers: Hypertension type: primary hypertension Qualified Code(s): I10 - Essential (primary) hypertension (3) Atrial fibrillation with RVR: (4) Chronic anticoagulation: Plan History of recent stroke History of atrial fibrillation History of chronic anticoagulation History of hypertension History of hypothyroidism Recent echocardiogram from December 2021 shows a normal EF, diastolic dysfunction, biatrial enlargement. Continue other chronic medications. Full code. Famotidine for VT prophylaxis Eliquis for prior DVT prophylaxis Attestations Medical Necessity Statement*: Continue pain medication during hospital stay. We will discussed with Dr. Garibay tomorrow and possibly discharge patient for outpatient follow-up. Patient however will need to stay in the hospital until urine culture finalizes. Coding Level of Care Code Acute Premium Cancellation Clerk for [facility] Fwd Diagnoses Intractable back pain M54.9 Hypertension I10 Hypertension type: primary hypertension Atrial fibrillation with RVR I48.91 Chronic anticoagulation Z79.01
[2022-03-05] MEDS: NON-FORMULARY MEDICATION (Methenamine Hippurate 1 gram tablet) 1 EACH PO (18:13)
[2022-03-05] MEDS: sennosides 8.6 mg Tablet 17.2 MG PO (20:54)
[2022-03-05] MEDS: atorvastatin 40 mg Tablet 80 MG PO (20:54)
[2022-03-06] VITALS (8 sets, daily range): BP systolic 155–177; BP diastolic 64–88; PULSE 74–112; RESP 16–18; TEMP 36.4–36.8; O2SAT 92–99
[2022-03-06] MEDS: morphine 4 mg/mL SDV 1 mL 2 MG IVP (00:56)
[2022-03-06 04:49] LABS: Basophils % 0.7 %; Eosinophils # 0.2 10^3/uL (0.0-0.8); Eosinophils % 3.7 %; Hematocrit 32.7 % (37.0-47.0); Hemoglobin 9.8 g/dL (11.5-15.3); Lymphocytes # 0.8 10^3/uL (0.8-4.8); Lymphocytes % 20.1 %; Mean Corpuscular Hemoglobin 29.2 pg (28.0-34.0); Mean Corpuscular Volume 97.3 fl (81-99); Mean Platelet Volume 11.1 fL (7.4-10.4); Monocytes # 0.4 10^3/uL (0.2-0.9); Monocytes % 8.7 %; Neutrophils # 2.66 10^3/uL (1.8-7.7); Neutrophils % 66.3 %; Nucleated Red Blood Cells % 0 %; Platelet Count 169 10^3/cmm (130-400); Red Blood Count 3.36 10^6/uL (4.1-5.3); Red Cell Distribution Width 13.6 % (12.1-15.1)
[2022-03-06 05:22] LABS: Blood Urea Nitrogen 16 mg/dL (8-23); Calcium 8.9 mg/dL (8.5-10.5); Carbon Dioxide 28 mmol/L (22-29); Chloride 105 mmol/L (98-107); Glucose 116 mg/dL (65-115); Osmolality Calculated 294 mOsm/kg (285-295); Sodium 141 mmol/L (136-145)
[2022-03-06] MEDS: NON-FORMULARY MEDICATION (Methenamine Hippurate 1 gram tablet) 1 EACH PO ×2 (08:45→17:13)
[2022-03-06] MEDS: amlodipine 5 mg Tablet PO (08:46)
[2022-03-06] MEDS: ferrous gluconate 324 mg Tablet PO ×2 (08:46→17:13)
[2022-03-06] MEDS: docusate sodium 100 mg Capsule PO ×2 (08:46→17:13)
[2022-03-06] MEDS: levothyroxine 100 mcg Tablet PO (08:46)
[2022-03-06] MEDS: losartan 50 mg Tablet PO (08:46)
[2022-03-06] MEDS: famotidine 20 mg Tablet PO ×2 (08:46→17:13)
[2022-03-06] MEDS: calcium carbonate 500 mg Chew Tablet PO (08:47)
[2022-03-06] MEDS: nitrofurantoin SR (BID) 100 mg Capsule PO ×2 (08:47→17:13)
[2022-03-06] MEDS: apixaban 5 mg Tablet PO ×2 (08:54→21:15)
--- NOTE | 2022-03-06 08:59 | P.PN_ITS ---
Subjective Subjective: Seen this morning. Patient will be going for MRI today. She is requesting to remove her Marin. Vitals/I&O/Wt Last Vital Signs Temp 98 F 03/06/22 12:00 Pulse 112 H 03/06/22 12:00 Resp 16 03/06/22 12:00 BP 158/80 03/06/22 12:00 Pulse Ox 94 03/06/22 12:00 O2 Del Method 03/06/22 12:00 O2 Flow Rate 2 03/06/22 08:00 03/05/22 03/06/22 03/06/22 22:59 06:59 14:59 Intake Total 480 / 1080 939.167 / 2019.167 240 / 240 Output Total 1400 / 1400 Balance 480 / 1080 -460.833 / 619.167 240 / 240 Weight last 48 hrs Weight 92.215 kg Physical Exam Narrative: General: No acute distress, AO x3 HEENT: EOMI Chest: Clear to auscultation bilaterally but diminished at bases. CVS: S1-S2 regular, no murmurs, Abdomen: Soft, nontender, no organomegaly, bowel sounds present Neuro: Nonfocal Lumbar region L4-L5 back is tender to palpation, mild paraspinal muscle tenderness also present. Urinary Catheter Management: Marin: Cath Placed During This Visit: yes, but has since been removed by the nurse Reason for Continuing Indwelling Catheter: Acute Urinary Retention or Obstruction Urinary Catheter Date of Insertion: 03/04/22 Urinary Catheter Time of Insertion: 15:03 Date Urinary Catheter Removed: 03/06/22 Time Urinary Catheter Discontinued: 10:30 Data : 03/06/22 04:28 03/06/22 04:28 Micro: Microbiology 03/04/22 15:02 Urine Culture - Final Urine,Clean Catch Escherichia coli esbl 03/04/22 15:53 Blood Culture - Preliminary Blood NEGATIVE TO DATE 03/04/22 15:48 Blood Culture - Preliminary Blood NEGATIVE TO DATE A&P Assessment and plan (1) Intractable back pain: Appreciate CT lumbar spine. Consistent for a possible lytic lesion. Pain not managed by outpatient oral pain management. Start on IV morphine 2 mg every 4 hour as needed. Tramadol 50 mg every 6 hour as needed. Physical therapy evaluation For further evaluation for possible malignancy and multiple myeloma we will send UPEP/SPEP, electrophoresis, light chain assay, CT chest, peripheral smear. CT chest: 1. L2 vertebral body 15 mm lytic bony lesion seen posteriorly, concerning for metastatic disease, MRI could further evaluate this. 2. Cardiomegaly. 3. Coronary artery atherosclerotic calcifications. 4. Cholecystectomy. 5. Bilateral renal cysts, negative for follow-up advised. 6. Constipation. 7. Diverticulosis without diverticulitis. 8. Scattered prominent mediastinal lymph nodes measuring up to 12 mm, nonspecific. CT abdomen 1. Lytic posterior L2 vertebral body lesion, measuring 1.6 x 1.6 cm. The lesion extends into the posterior vertebral body wall. This may represent osseous metastatic disease or myeloma. Further assessment may be performed with bone scan and/or MRI. 2. Chronic changes, as noted above. 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 MRI to be done today UTI: E. coli ESBL Sensitive to nitrofurantoin. We will treat x7 days total. (2) Hypertension: Qualifiers: Hypertension type: primary hypertension Qualified Code(s): I10 - Essential (primary) hypertension (3) Atrial fibrillation with RVR: (4) Chronic anticoagulation: Plan History of recent stroke History of atrial fibrillation History of chronic anticoagulation History of hypertension History of hypothyroidism Recent echocardiogram from December 2021 shows a normal EF, diastolic dysfunction, biatrial enlargement. Continue other chronic medications. Full code. Famotidine for VT prophylaxis Eliquis for prior DVT prophylaxis Attestations Medical Necessity Statement*: Plan for MRI today. Further evaluation after results are back. Coding Level of Care Code Acute Scrap Iron Cutter for Chg Fwd Diagnoses Intractable back pain M54.9 Hypertension I10 Hypertension type: primary hypertension Atrial fibrillation with RVR I48.91 Chronic anticoagulation Z79.01
--- NOTE | 2022-03-06 09:30 | MR_ITS ---
WS: [id number] MRI LUMBAR SPINE NONCONTRAST TECHNIQUE: Sagittal T1, T2 and STIR imaging. Axial T1 and T2 imaging. CLINICAL INFORMATION: intractatble back pain, lytic lesion COMPARISON: CT March 04, 2022 FINDINGS: Mild lumbar curve. Mild compression superior endplate L2 with edema. Suspected metastatic lesion invo lving the posterior L2 vertebral body is unchanged from the recent CT. This involves the posterior co rtex. This measures approximately 1.6 x 1.6 cm. No other visualized suspicious lesions. L1-L2: Mild annular bulging. Slight effacement of ventral thecal sac. Mild facet arthropathy. Spinal canal and foramen are patent. L2-L3: Mild annular bulging. Mild central canal stenosis. Impingement subarticular recess bilaterally . Mild facet arthropathy. Mild RIGHT foraminal narrowing. L3-L4: Mild annular bulging. Severe central canal stenosis. Impingement traversing L4 nerve roots juan aterally. Moderate facet arthropathy. Mild LEFT foraminal narrowing. L4-L5: Prior laminectomy defects. Disc bulging with narrowing of the subarticular recess bilaterally RIGHT greater than LEFT. Moderate facet arthropathy. Mild LEFT and no significant RIGHT foraminal geraldine rowing. Impingement on the exiting LEFT L4 nerve root. L5-S1: Disc osteophyte complex with endplate ridging. Moderate central canal stenosis. Impingement on the traversing S1 nerve roots bilaterally. Moderate bilateral foraminal narrowing. Mild facet arthro ericka. Polycystic kidneys bilaterally partially visualized. MR/MR lumbar spine wo con* [id number] IMPRESSION: 1. Suspected metastatic lesion involving the posterior L2 vertebral body with destruction of the posterior cortex. This is unchanged since recent CT. Mild pa thologic compression superior endplate L2 with edema. Edema extends into the LE FT pedicle. 2. Mild central canal stenosis L2-L3. Severe central canal stenosis L3-L4. Mod erate central stenosis L5-S1. 3. Mild to moderate bony foraminal narrowing at RIGHT L2-L3, LEFT L3-L4, LEFT L4-L5 and bilateral L5-S1. 4. Polycystic kidneys bilaterally.
[2022-03-06] MEDS: metoclopramide 5 mg/mL SDV 2 mL IVP (10:24)
--- NOTE | 2022-03-06 10:42 | PC.CHAP ---
Pastoral Care Encounter/Spiritual Assessment Type of Contact [] Declined ship washer visit [] Patient/Family/Request visit [] Outpatient visit [] Follow-up visit [] Physician referral [] Code/Alert [x] Routine visit [] Staff referral [] Actively dying [x] Patient sleeping [] Family support [] [] Out of room [] Palliative care [] [] Receiving care in room [] Pre-surgical visit [] Trauma [] Long length of stay [] ICU visit [] Other: Relational/Emotional Strength [] Patient feels connected with others/family/visitors/staff [] Distress [] Loneliness/isolation [] Abandonment Spirituality of Patient [] Person of Alicia [] Attends Mormonism of their Alicia [] Believes in Prayer [] Reads Bible or Church materials [] There are Spiritual issues to be addressed Assistant Hall Director Interventions [] Prayer [] Active listening [] Non-anxious presence [] Spiritual/emotional support [] Crisis/trauma care [] Spiritual counseling [] Bereavement support [] Provided bereavement packet [] Provided Bible/devotional materials [] Provided toy/stuffed animal, coloring book to patient or family member [] Provided Communion [] Anointing/[place] [] Salvation [] Completed spiritual assessment [] Other: Impact on Illness or Injury [] Angry [] Fearful [] Anxious [] Often cries [] Exhaustion [] Unable to work [] Unable to attend church [] Unable to walk/stand [] Unable to read [] Unable to drive [] Unable to eat/drink [] Unable to sleep [] Unable to be with family [] Patient intubated [] Other: Summary Time spent with patient
[2022-03-06] MEDS: ALPRAZolam 0.5 mg Tablet 0.25 MG PO (12:03)
[2022-03-06 13:28] LABS: Creatinine, Random Urine 133 mg/dL (20-275); Protein, Total, Random 20 mg/dL (5-24); Protein/Creatinine Ratio 150 mg/g creat (24-184)
--- NOTE | 2022-03-06 16:54 | PC.NURSE ---
Marin Catheter removed at 10:30 am per verbal order from Dr. Butt
--- NOTE | 2022-03-06 17:28 | PM.CONSULT ---
Providers/Reason For Consult Consulting Physician/Specialty*: Ortho Spine Reason for Consult*: Back Pain Attending Physician: Aundrea Butt MD Primary Care Provider: RUDDY Varma History of Present Illness History of Present Illness Evelia Denton is a 87 year old female valuated in room 254 bed 1 sitting at her bedside and having p.m. meal no family was present. Patient appears in no apparent distress. Discussed about back pain she states has been ongoing for about a week. She denies a fall all of her pain is localized in her low back. She states bending twisting walking has increased her pain rest gives her some short-term relief. She describes pain through her abdominal area in the hip region. Describes as aching sharp in nature. Denies any loss of bowel or bladder control. She states the only cancer history she knows of is melanoma on her left earlobe. Denies any night sweats or fevers. Activities seem to make her symptoms much worse. An extensive review of the patient's past medical history, surgical history, allergies, medications, family history, social history, and review of systems was completed Review of Systems General: Reports: 10 or more systems reviewed and unremarkable except in HPI and below Const: Denies: fever(s), chills, body aches, change in appetite, change in weight, malaise, night sweats, diaphoresis, change in sleep pattern, daytime sleepiness or snoring Eyes: Denies: change in vision, blurry vision, photophobia, eye discomfort or eye discharge ENMT: Denies: throat pain, enlarged tonsils, hoarseness, mouth pain, oral sores, dry mouth, tinnitus, nasal congestion or post nasal drip Card: Denies: chest pain, palpitations, irregular heart rhythm, edema, swelling of feet/ankles, lightheadedness, syncope, pre-syncope, dyspnea on exertion, orthopnea, leg pain with exertion or acrocyanosis Resp: Denies: dyspnea, productive cough, non-productive cough, wheezing, stridor, pain on inspiration, change in phlegm color, hemoptysis or chest congestion GI: Denies: abdominal pain, nausea, vomiting, hematemesis, coffee ground emesis, dysphagia, heartburn, diarrhea, constipation, bloating, GI cramping, change in bowel habits, pain on defecation, hematochezia or melena : Denies: flank pain, dysuria, urinary frequency, urinary urgency, urinary hesitancy, nocturia or hematuria Musc: Denies: neck pain, back pain, extremity pain, joint pain, joint swelling, joint redness, joint stiffness or limited range of motion Neuro: Denies: headache(s), numbness in extremities, weakness in extremities, sensory changes, lack of coordination, difficulty walking, frequent falls, dizziness, vertigo, confusion, Slurred speech present, difficulty communicating thoughts or seizure-like activity Psych: Denies: anxiety, depression, mood swings, panic attacks, hopelessness or irritability Endo: Denies: polyuria, polydipsia, tired all the time, cold intolerance, excessive sweating, flushing or heat intolerance Elvis/Lymph: Denies: easy bruising or easy bleeding All/Imm: Denies: tongue swelling, facial swelling or acute wheezing Medications/Allergies Home Medications Medication Instructions Recorded Confirmed Last Taken Type valsartan 160 mg tablet 160 mg PO DAILY #90 tabs 05/28/19 03/04/22 12/26/21 Rx apixaban 5 mg tablet (Eliquis) 5 mg PO BID 06/02/19 03/04/22 12/26/21 History esomeprazole magnesium 40 mg 40 mg PO DAILY 06/02/19 03/04/22 12/26/21 History capsule,delayed release (Nexium) furosemide 40 mg tablet (Lasix) 40 mg PO QAM 06/02/19 03/04/22 12/26/21 History levothyroxine 100 mcg capsule 100 mcg PO DAILY 06/02/19 03/04/22 12/26/21 History methenamine mandelate 1 gram tablet 1 gm PO BID 06/02/19 03/04/22 12/26/21 History potassium chloride 20 mEq oral 20 meq PO DAILY 06/02/19 03/04/22 12/26/21 History packet Diabetic Shoes #1 ea 06/09/19 03/04/22 Unknown Rx ferrous sulfate 325 mg (65 mg 325 mg PO DAILY 11/10/19 03/04/22 12/26/21 History iron) tablet (Feosol) levocetirizine 5 mg tablet 5 mg PO DAILY 11/10/19 03/04/22 12/26/21 History Incontinent supplies #120 ea 08/23/20 03/04/22 Unknown Rx amlodipine 5 mg tablet 5 mg PO DAILY 12/27/21 03/04/22 12/26/21 History fluticasone propionate 50 1 spray intranasal BID PRN Nasal 12/27/21 03/04/22 Unknown History mcg/actuation nasal Congestion spray,suspension (Flonase Allergy Relief) metformin 500 mg tablet,extended 500 mg PO DAILY 12/27/21 03/04/22 12/26/21 History release 24 hr tramadol 50 mg tablet 25 mg PO BID PRN Pain 12/27/21 03/04/22 Unknown History metoprolol tartrate 25 mg tablet 25 mg PO BID@ #60 tabs 12/30/21 03/04/22 Unknown Rx Arm Supports for walker #1 ea 03/02/22 03/04/22 Unknown Rx Lift Chair #1 ea 03/02/22 03/04/22 Unknown Rx rosuvastatin 20 mg tablet 20 mg PO DAILY 03/04/22 03/04/22 Unknown History Allergies Allergy/AdvReac Type Severity Reaction Status Date / Time cephalexin [From Keflex] Allergy ALGY-Rash Verified 01/05/22 10:58 Iodinated Contrast Media Allergy ALGY-Swell Verified 01/05/22 10:58 Lip/Tongue/Throat Penicillins Allergy ALGY-Rash Verified 01/05/22 10:58 Current Medications Generic Name Dose Route Start Last Admin Trade Name Freq PRN Reason Stop Dose Admin Acetaminophen 650 mg 03/04/22 11:39 03/05/22 20:54 Acetaminophen 325 Mg Tablet PO 650 mg Q6H PRN Administration Mild/Mod Pain Or Temp >/= 101 Amlodipine Besylate 5 mg 03/05/22 09:00 03/06/22 08:46 Amlodipine 5 Mg Tablet PO 5 mg DAILY YULIET Administration Apixaban 5 mg 03/04/22 21:00 03/06/22 08:54 Apixaban 5 Mg Tablet PO 5 mg BID@0900,2100 YULIET Administration Atorvastatin Calcium 80 mg 03/04/22 21:00 03/05/22 20:54 Atorvastatin 40 Mg Tablet PO 80 mg BEDTIME YULIET Administration Calcium Carbonate 500 mg 03/05/22 09:00 03/06/22 08:47 Calcium Carbonate 500 Mg Chew Tablet PO 500 mg DAILY YULIET Administration Docusate Sodium 100 mg 03/04/22 18:00 03/06/22 08:46 Docusate Sodium 100 Mg Capsule PO 100 mg BID YULIET Administration Famotidine 20 mg 03/04/22 18:00 03/06/22 08:46 Famotidine 20 Mg Tablet PO 20 mg BID YULIET Administration Ferrous Gluconate 324 mg 03/04/22 18:00 03/06/22 08:46 Ferrous Gluconate 324 Mg Tablet PO 324 mg BIDWM YULIET Administration Sodium Chloride 1,000 mls @ 50 mls/hr 03/04/22 10:45 03/05/22 23:05 Sodium Chloride 0.9% IV 50 mls/hr .Q20H YULIET Administration Levothyroxine Sodium 100 mcg 03/05/22 09:00 03/06/22 08:46 Levothyroxine 100 Mcg Tablet PO 100 mcg DAILY YULIET Administration Losartan Potassium 50 mg 03/05/22 09:00 03/06/22 08:46 Losartan 50 Mg Tablet PO 50 mg DAILY YULIET Administration Morphine Sulfate 2 mg 03/04/22 11:39 03/06/22 00:56 Morphine 4 Mg/Ml Sdv 1 Ml IVP 2 mg Q4H PRN Administration SEVERE PAIN Nitrofurantoin Macrocrystals 100 mg 03/05/22 09:00 03/06/22 08:47 Nitrofurantoin Sr (Bid) 100 Mg Capsule PO 100 mg BID YULIET Administration Non-Formulary 1 gm 03/05/22 18:00 03/06/22 08:45 Medication ( PO 1 gm Methenamine BID YULIET Administration Hippurate 1 Gram Tablet) Senna 17.2 mg 03/04/22 21:00 03/05/22 20:54 Sennosides 8.6 Mg Tablet PO 17.2 mg BEDTIME YULIET Administration PFSH Acute PFSH: Medical History (Updated 03/06/22 @ 17:41 by Lasha Finney PA-C) Actinic keratosis left forearm, removed Anemia At high risk for falls Atrial fibrillation with RVR Basal cell carcinoma left earlobe, removed Cerebrovascular accident with involvement of left side of body CHF (congestive heart failure) Chronic a-fib Chronic anticoagulation Eliquis, for chronic afib Chronic cystitis CKD (chronic kidney disease) COVID-19 (~07/2020) Diabetes Dyslipidemia Feeling of incomplete bladder emptying Glucose intolerance prediabetes, on metformin Hypertension Hypothyroidism Incontinent of urine Left shoulder pain Osteoarthritis of left shoulder Surgical History H/O bilateral oophorectomy History of back surgery lumbar Hx of cholecystectomy several complications requiring additional procedures post op Hx of total knee replacement Family History Father , at age 79 Diabetes Daughter Stroke Family/Other Stroke Aunt Social History Smoking and tobacco status: never smoked Alcohol intake: never Adopted: No Lives independently: Yes Housing: House Current occupational status: retired Female Reproductive History: Para: 6 Spontaneous abortions: Yes (1) Vitals/I&O/Wt Last Vital Signs Temp 98 F 03/06/22 16:00 Pulse 74 03/06/22 16:00 Resp 18 03/06/22 16:00 BP 155/81 03/06/22 16:00 Pulse Ox 99 03/06/22 16:00 O2 Del Method 03/06/22 12:00 O2 Flow Rate 2 03/06/22 08:00 03/06/22 03/06/22 03/06/22 06:59 14:59 22:59 Intake Total 939.167 / 2019.167 240 / 240 Output Total 1400 / 1400 Balance -460.833 / 619.167 240 / 240 Weight last 48 hrs Weight 203 lb 4.8 oz Physical Exam Narrative: She is alert orient x3 she has good general appearance normal mood and affect. She is tender with palpation and percussion about the lower thoracic and lumbar spine. Well-healed incision from previous lumbar procedure. skin is warm to the touch no evidence of bruising or trauma to her low back. She has negative logroll bilaterally. She is able to extend both legs slowly. Feet are warm good cap refill calves are supple dorsalis pedis posterior pulses are weak but palpable. She appears to fire in all motor groups with 4/5 pain. No palpable pain through the thoracic spine she has good range of motion of her cervical spine both upper extremities at the shoulders elbows and wrists hands warm good cap refill. Radial pulses are palpable. HENMT: COMMON NORMALS: normocephalic and atraumatic HEAD & SCALP: normocephalic and atraumatic Resp: COMMON NORMALS: normal respiratory effort Cardio: COMMON NORMALS: regular rate and regular rhythm RATE: regular rate RHYTHM: regular rhythm GI: COMMON NORMALS: Soft to palpation and non-tender PALPATION: Yes Soft to palpation : COMMON NORMALS: Yes no CVA tenderness BLADDER/KIDNEY EXAM: Yes no CVA tenderness Back/Pelvis: COMMON NORMALS: no CVA tenderness Psych: COMMON NORMALS: mental status grossly normal and cooperative Urinary Catheter Management: Marin: Cath Placed During This Visit: yes, but has since been removed by the nurse Reason for Continuing Indwelling Catheter: Acute Urinary Retention or Obstruction Urinary Catheter Date of Insertion: 03/04/22 Urinary Catheter Time of Insertion: 15:03 Date Urinary Catheter Removed: 03/06/22 Time Urinary Catheter Discontinued: 10:30 Data : 03/06/22 04:28 03/06/22 04:28 Micro: Microbiology 03/04/22 15:02 Urine Culture - Final Urine,Clean Catch Escherichia coli esbl 03/04/22 15:53 Blood Culture - Preliminary Blood NEGATIVE TO DATE 03/04/22 15:48 Blood Culture - Preliminary Blood NEGATIVE TO DATE MRI: Radiologist's impression: MR/MR lumbar spine wo con* [id number] IMPRESSION: ? 1.? Suspected metastatic lesion involving the posterior L2 vertebral body with destruction of the posterior cortex. This is unchanged since recent CT. Mild pathologic compression superior endplate L2 with edema. Edema extends into the LEFT pedicle. 2.? Mild central canal stenosis L2-L3. Severe central canal stenosis L3-L4. Moderate central stenosis L5-S1. 3.? Mild to moderate bony foraminal narrowing at RIGHT L2-L3, LEFT L3-L4, LEFT L4-L5 and bilateral L5-S1. 4.? Polycystic kidneys bilaterally. CT/CT lumbar spine recon [id number] IMPRESSION: 1. Posterior L2 vertebral body lytic lesion with destruction of the posterior wall of the vertebral body (series 6 images 33-38 and series 4 images 32-40). This may represent metastatic disease or myeloma. Further assessment may be performed with MRI and bone scan. 2. Degenerative changes of the lumbar spine, as noted above. Moderate to severe central spinal stenosis at the L4-L5 level. Some moderate to severe foraminal stenoses at the L4-L5 and L5-S1 levels, as noted above.? Postsurgical changes status post prior L5 laminectomy. ? A&P Assessment and plan (1) Lesion of lumbar spine: No family was present during the consultation. Recommend an LSO brace. Recommend radiology biopsy of the L2 vertebral body. We will continue to follow outpatient should the vertebral body collapse further than the need for spine fixation would be required. At this point we will continue to follow we will await the biopsy from radiology. Restrict her bending lifting and twisting activities. We will see her back in the office in 1 week's time to continue to follow closely. (2) Intractable back pain: Coding Level of Care Code New Pt Acute Immigration Investigator for Anug Fwjose alejandro Patient Type New History Detailed Exam Detailed Medical Decision Making Moderate Complexity Diagnoses Lesion of lumbar spine M89.9 Intractable back pain M54.9
[2022-03-06] MEDS: atorvastatin 40 mg Tablet 80 MG PO (21:14)
[2022-03-06] MEDS: sennosides 8.6 mg Tablet 17.2 MG PO (21:15)
[2022-03-06] MEDS: sodium chloride 0.9% 1,000 ML 50 ML IV (21:21)
[2022-03-07] VITALS (9 sets, daily range): BP systolic 138–188; BP diastolic 73–104; PULSE 64–108; RESP 17–18; TEMP 36.3–36.9; O2SAT 93–99
[2022-03-07] MEDS: acetaminophen 325 mg Tablet 650 MG PO ×2 (01:10→20:02)
[2022-03-07 01:32] LABS: PROTEIN, TOTAL 6.1 g/dL (6.1-8.1)
[2022-03-07] MEDS: apixaban 5 mg Tablet PO ×2 (10:00→20:02)
[2022-03-07] MEDS: nitrofurantoin SR (BID) 100 mg Capsule PO ×2 (10:01→17:19)
[2022-03-07] MEDS: losartan 50 mg Tablet 75 MG PO (10:01)
[2022-03-07] MEDS: famotidine 20 mg Tablet PO ×2 (10:02→17:19)
[2022-03-07] MEDS: calcium carbonate 500 mg Chew Tablet PO (10:02)
[2022-03-07] MEDS: levothyroxine 100 mcg Tablet PO (10:02)
[2022-03-07] MEDS: ferrous gluconate 324 mg Tablet PO ×2 (10:02→17:18)
[2022-03-07] MEDS: docusate sodium 100 mg Capsule PO (10:02)
[2022-03-07] MEDS: amlodipine 10 mg Tablet PO (10:04)
[2022-03-07] MEDS: NON-FORMULARY MEDICATION (Methenamine Hippurate 1 gram tablet) 1 EACH PO ×2 (10:11→17:19)
[2022-03-07 10:23] LABS: Albumin,Urine Random 100 %; Alpha-1-Globulins Urine Random 0 %; Alpha-2-Globulins Urine Random 0 %; Beta-Globulin,Urine Random 0 %; Gamma Globulin,Urine Random 0 %
[2022-03-07 10:32] LABS: ABNORMAL PROTEIN BAND 1 0.3 g/dL (NONE DETECTED); ALBUMIN 2.9 g/dL (3.8-4.8); ALPHA 1 GLOBULIN 0.5 g/dL (0.2-0.3); ALPHA 2 GLOBULIN 0.9 g/dL (0.5-0.9); BETA 1 GLOBULIN 0.4 g/dL (0.4-0.6); BETA 2 GLOBULIN 0.3 g/dL (0.2-0.5); GAMMA GLOBULIN 1.1 g/dL (0.8-1.7)
[2022-03-07] MEDS: hyDRALAzine 20 mg/mL INJ 1 mL 5 MG IVP (12:05)
[2022-03-07 12:14] LABS: KAPPA LIGHT CHAIN, FREE, SERUM 42.1 mg/L (3.3-19.4); KAPPA/LAMBDA LIGHT CHAINS FREE 1.24 (0.26-1.65); LAMBDA LIGHT CHAIN, FREE, SERU 33.9 mg/L (5.7-26.3)
--- NOTE | 2022-03-07 12:45 | PM.PN ---
Subjective Subjective: late entry note for mar 07 Pt seen today. no acute events overnight pain well controlled. MRI resulted. Plan for bone scan in AM. Seen by ortho last night. brace placed. Vitals/I&O/Wt Last Vital Signs Temp 97.8 F 03/08/22 14:50 Pulse 62 03/08/22 14:50 Resp 18 03/08/22 14:50 BP 149/79 03/08/22 14:50 Pulse Ox 96 03/08/22 14:50 O2 Del Method 03/08/22 12:00 O2 Flow Rate 2 03/08/22 03:40 03/08/22 03/08/22 03/08/22 06:59 14:59 22:59 Intake Total 240 / 240 Balance 240 / 240 Weight last 48 hrs Weight 94.064 kg Weight 92.986 kg Physical Exam Narrative: General: No acute distress, AO x3 HEENT: EOMI Chest: Clear to auscultation bilaterally but diminished at bases. CVS: S1-S2 regular, no murmurs, Abdomen: Soft, nontender, no organomegaly, bowel sounds present Neuro: Nonfocal Lumbar region L4-L5 back is tender to palpation, mild paraspinal muscle tenderness also present. Urinary Catheter Management: Marin: Cath Placed During This Visit: yes, but has since been removed by the nurse Reason for Continuing Indwelling Catheter: Acute Urinary Retention or Obstruction Urinary Catheter Date of Insertion: 03/04/22 Urinary Catheter Time of Insertion: 15:03 Date Urinary Catheter Removed: 03/06/22 Time Urinary Catheter Discontinued: 10:30 Data : 03/06/22 04:28 03/06/22 04:28 A&P Assessment and plan (1) Intractable back pain: Appreciate CT lumbar spine. Consistent for a possible lytic lesion. Pain not managed by outpatient oral pain management. Start on IV morphine 2 mg every 4 hour as needed. Tramadol 50 mg every 6 hour as needed. Physical therapy evaluation For further evaluation for possible malignancy and multiple myeloma we will send UPEP/SPEP, electrophoresis, light chain assay, CT chest, peripheral smear. CT chest: 1. L2 vertebral body 15 mm lytic bony lesion seen posteriorly, concerning for metastatic disease, MRI could further evaluate this. 2. Cardiomegaly. 3. Coronary artery atherosclerotic calcifications. 4. Cholecystectomy. 5. Bilateral renal cysts, negative for follow-up advised. 6. Constipation. 7. Diverticulosis without diverticulitis. 8. Scattered prominent mediastinal lymph nodes measuring up to 12 mm, nonspecific. CT abdomen 1. Lytic posterior L2 vertebral body lesion, measuring 1.6 x 1.6 cm. The lesion extends into the posterior vertebral body wall. This may represent osseous metastatic disease or myeloma. Further assessment may be performed with bone scan and/or MRI. 2. Chronic changes, as noted above. Orthopedic spine surgery consulted on patient. Consult appreciated. MRI complete. 1.? Suspected metastatic lesion involving the posterior L2 vertebral body with destruction of the posterior cortex. This is unchanged since recent CT. Mild pathologic compression superior endplate L2 with edema. Edema extends into the LEFT pedicle. 2.? Mild central canal stenosis L2-L3. Severe central canal stenosis L3-L4. Moderate central stenosis L5-S1. 3.? Mild to moderate bony foraminal narrowing at RIGHT L2-L3, LEFT L3-L4, LEFT L4-L5 and bilateral L5-S1. 4.? Polycystic kidneys bilaterally. UTI: E. coli ESBL Sensitive to nitrofurantoin. We will treat x7 days total. (2) Hypertension: Qualifiers: Hypertension type: primary hypertension Qualified Code(s): I10 - Essential (primary) hypertension (3) Atrial fibrillation with RVR: (4) Chronic anticoagulation: Plan History of recent stroke History of atrial fibrillation History of chronic anticoagulation History of hypertension History of hypothyroidism Recent echocardiogram from December 2021 shows a normal EF, diastolic dysfunction, biatrial enlargement. Continue other chronic medications. Bone scan in am Will discuss with Dr. Charles to coordinate her care as outpatient. Full code. Famotidine for VT prophylaxis Eliquis for prior DVT prophylaxis Attestations Medical Necessity Statement*: bone scan in AM. plan for DC after bone scan Coding Level of Care Code Acute Home Furnishings Sales Representative for Chg Fwd Diagnoses Intractable back pain M54.9 Hypertension I10 Hypertension type: primary hypertension Atrial fibrillation with RVR I48.91 Chronic anticoagulation Z79.01
[2022-03-07 13:06] LABS: Carcinoembryonic Antigen 2.3 ng/mL (0.0-4.7)
[2022-03-07 13:07] LABS: Cancer Antigen 19 9 9.11 U/mL (0-35)
[2022-03-07] MEDS: benzonatate 100 mg Capsule PO (17:19)
[2022-03-07] MEDS: ondansetron 2 mg/ML SDV 2 mL 4 MG IVP (18:31)
[2022-03-07] MEDS: atorvastatin 40 mg Tablet 80 MG PO (20:02)
[2022-03-07] MEDS: sennosides 8.6 mg Tablet 17.2 MG PO (20:02)
[2022-03-07] MEDS: sodium chloride 0.9% 1,000 ML 50 ML IV (20:04)
[2022-03-08 03:40] VITALS: BP 134/74; PULSE 68; RESP 16; TEMP 36.8; O2SAT 99
[2022-03-08 07:37] VITALS: BP 158/75; PULSE 58; RESP 18; TEMP 36.6; O2SAT 91
[2022-03-08 07:55] VITALS: BP 158/75
[2022-03-08] MEDS: ALPRAZolam 0.5 mg Tablet 0.25 MG PO (07:55)
[2022-03-08] MEDS: losartan 50 mg Tablet 75 MG PO (07:55)
[2022-03-08] MEDS: nitrofurantoin SR (BID) 100 mg Capsule PO (07:56)
[2022-03-08] MEDS: apixaban 5 mg Tablet PO (07:56)
[2022-03-08] MEDS: ferrous gluconate 324 mg Tablet PO (07:56)
[2022-03-08] MEDS: calcium carbonate 500 mg Chew Tablet PO (07:56)
[2022-03-08] MEDS: levothyroxine 100 mcg Tablet PO (07:56)
[2022-03-08] MEDS: famotidine 20 mg Tablet PO (07:56)
[2022-03-08] MEDS: docusate sodium 100 mg Capsule PO (07:56)
[2022-03-08] MEDS: amlodipine 10 mg Tablet PO (07:56)
--- NOTE | 2022-03-08 08:47 | PC.SOCIAL ---
IMM update IMM updated with patient. Verbalized an understanding. Copy Pg 2 provided. Initialled, dated, timed, and placed in chart.
--- NOTE | 2022-03-08 09:18 | PC.CHAP ---
Pastoral Care Encounter/Spiritual Assessment Type of Contact [] Declined certified phlebotomist visit [] Patient/Family/Request visit [] Outpatient visit [] Follow-up visit [] Physician referral [] Code/Alert [x] Routine visit [] Staff referral [] Actively dying [] Patient sleeping [] Family support [] [] Out of room [] Palliative care [] [] Receiving care in room [] Pre-surgical visit [] Trauma [] Long length of stay [] ICU visit [] Other: Relational/Emotional Strength [x] Patient feels connected with others/family/visitors/staff [] Distress [] Loneliness/isolation [] Abandonment Spirituality of Patient [x] Person of Alicia [] Attends Religion of their [place]ia [x] Believes in Prayer [] Reads Bible or Anglican materials [] There are Spiritual issues to be addressed 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 Interventions [x] Prayer [x] Active listening [x] Non-anxious presence [] Spiritual/emotional support [] Crisis/trauma care [] Spiritual counseling [] Bereavement support [] Provided bereavement packet [] Provided Bible/devotional materials [] Provided toy/stuffed animal, coloring book to patient or family member [] Provided Communion [] Anointing/[place] [] Salvation [x] Completed spiritual assessment [] Other: Impact on Illness or Injury [] Angry [] Fearful [] Anxious [] Often cries [] Exhaustion [] Unable to work [] Unable to attend baptist [] Unable to walk/stand [] Unable to read [] Unable to drive [] Unable to eat/drink [] Unable to sleep [] Unable to be with family [] Patient intubated [] Other: Summary Pt is a person of alicia and is believing in God's care for her health. She has multiple issues and faces an MRI today and a biopsy of her back at a later date. She lives with her daughter so does have assistance at home. Time spent with patient 15m
[2022-03-08 12:00] VITALS: BP 149/79; PULSE 62; RESP 18; TEMP 36.6; O2SAT 96
--- NOTE | 2022-03-08 12:15 | PM.DCS ---
Discharge Providers Date of Admission: 03/05/22 14:59 Date of Discharge: March 08, 2022 Attending Provider at Admission: Taina Alegria MD Attending Provider at Discharge: Aundrea Butt MD Primary Care Provider: RDUDY Varma Diagnoses at Discharge Discharge Diagnosis (1) Lesion of lumbar spine: Status: Acute (2) Intractable back pain: Status: Acute Reason for Visit Reason for Visit: Hip Pain\Back Pain\Sob Brief History: As per Dr. Alegria Evelia Denton is a 87 year old female with past medical history of chronic A. 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 Patient states she was discharged to retirement and was discharged from retirement back home on last Sunday.? Since Sunday she has been having severe back pain which has been getting worse getting aggravated on walking.? Not associated with bladder or bowel accidents or perianal anesthesia or numbness or weakness in her legs.? States pain is getting worse on standing up radiating to abdomen and bilateral groins.? She denies of having any trauma or fall prior to the pain starting. Blood work in the ER showed a hemoglobin of 10.9, sodium of 134, chloride of 97, creatinine of 1.1, calcium of 9.5, AST/ALT of 12/7, CRP of 42.9.? Lumbar abdominal CT scan were done and were reported as below. Hospital Course Hospital Course Patient presented with back pain. Lumbar CT was obtained which was concerning for possible lytic lesion. Eventually MRI was done which showed 1.? Suspected metastatic lesion involving the posterior L2 vertebral body with destruction of the posterior cortex. This is unchanged since recent CT. Mild pathologic compression superior endplate L2 with edema. Edema extends into the LEFT pedicle. 2.? Mild central canal stenosis L2-L3. Severe central canal stenosis L3-L4. Moderate central stenosis L5-S1. 3.? Mild to moderate bony foraminal narrowing at RIGHT L2-L3, LEFT L3-L4, LEFT L4-L5 and bilateral L5-S1. 4.? Polycystic kidneys bilaterally.. Orthopedic spine surgery was consulted. Initially patient was given the option of having general anesthesia and going for a biopsy or going to interventional radiology and having a biopsy that way however after discussion with oncology over the phone it was decided to do a radioablation with orthopedic spine surgery on Sunday. Bone scan was also done during hospital stay. No other evidence found. Unsure what primary might be at this point. Patient was discharged home to follow-up with Dr. Charles outpatient and will be having ablation and biopsy procedure done upcoming Sunday with Dr. Garibay as an outpatient. Patient to hold Eliquis 48 hours prior to procedure. She will be getting a call from Dr. Garibay's office with further details in regards to the procedure. Multiple myeloma work-up was also sent and a lot of it is pending however the preliminary that is back so far has quite nonspecific results. Patient's pain is well controlled. LSO brace applied. Patient to be discharged home in stable condition at this time. Family present bedside. Patient does have E. coli ESBL UTI. Sensitive to nitrofurantoin. She was given 7-day supply. It was discussed with the patient that she will be holding her Eliquis for 48 hours prior to procedure and that puts her at risk of stroke since she takes it for her A. fib. Patient demonstrated understanding and would like to proceed with biopsy on Sunday and is okay with holding Eliquis knowing that risk. Physical Exam Narrative: General: No acute distress, AO x3 HEENT: EOMI Chest: Clear to auscultation bilaterally but diminished at bases. CVS: S1-S2 regular, no murmurs, Abdomen: Soft, nontender, no organomegaly, bowel sounds present Neuro: Nonfocal Lumbar region L4-L5 back is tender to palpation, mild paraspinal muscle tenderness also present. Urinary Catheter Management: [place]: Cath Placed During This Visit: yes, but has since been removed by the nurse Reason for Continuing Indwelling Catheter: Acute Urinary Retention or Obstruction Urinary Catheter Date of Insertion: 03/04/22 Urinary Catheter Time of Insertion: 15:03 Date Urinary Catheter Removed: 03/06/22 Time Urinary Catheter Discontinued: 10:30 Discharge Data Studies Completed and Pending Completed Studies During Hospitalization Category Date Time Status CT chest wo con [id number] Routine Cat Scan 03/04/22 11:[address] kidney stone [id number] Stat Cat Scan 03/04/22 03:07 Completed MR lumbar spine wo con* [id number] Routine MRI 03/06/22 09:30 Completed NM bone scan whole body* [id number] Routine Nuc Med 03/08/22 13:59 Completed Pending at discharge Category Date Time Status Blood Culture Stat Lab 03/04/22 15:53 Results [place] Free Light Chains Urine Routine Lab 03/04/22 15:02 Received Vitamin D 1,25 Dihydroxy Routine Lab 03/04/22 11:30 Received Radiology Impressions Lumbar Spine CT 03/04/22 03:06 IMPRESSION: 1. Posterior L2 vertebral body lytic lesion with destruction of the posterior wall of the vertebral body (series 6 images 33-38 and series 4 images 32-40). This may represent metastatic disease or myeloma. Further assessment may be performed with MRI and bone scan. 2. Degenerative changes of the lumbar spine, as noted above. Moderate to severe central spinal stenosis at the L4-L5 level. Some moderate to severe foraminal stenoses at the L4-L5 and L5-S1 levels, as noted above. Postsurgical changes status post prior L5 laminectomy. COMMENTS: Consistent with the [employer]'s Incidental Findings Committee white paper (J Am Edith Radiol 2018): Any incidental renal lesion less than 1 cm or classified as too small to characterize, or any incidental cystic renal lesion characterized as simple-appearing, is likely benign. No follow-up imaging is recommended for these lesions per consensus recommendations based on imaging criteria. Abdomen/Pelvis CT 03/04/22 03:07 IMPRESSION: 1. Lytic posterior L2 vertebral body lesion, measuring 1.6 x 1.6 cm. The lesion extends into the posterior vertebral body wall. This may represent osseous metastatic disease or myeloma. Further assessment may be performed with bone scan and/or MRI. 2. Chronic changes, as noted above. Chest CT 03/04/22 11:44 IMPRESSION: 1. L2 vertebral body 15 mm lytic bony lesion seen posteriorly, concerning for metastatic disease, MRI could further evaluate this. 2. Cardiomegaly. 3. Coronary artery atherosclerotic calcifications. 4. Cholecystectomy. 5. Bilateral renal cysts, negative for follow-up advised. 6. Constipation. 7. Diverticulosis without diverticulitis. 8. Scattered prominent mediastinal lymph nodes measuring up to 12 mm, nonspecific. COMMENTS: Consistent with the [employer]'s Incidental Findings Committee white paper (J Am Edith Radiol 2018): Any incidental renal lesion less than 1 cm or classified as too small to characterize, or any incidental cystic renal lesion characterized as simple-appearing, is likely benign. No follow-up imaging is recommended for these lesions per consensus recommendations based on imaging criteria. Lumbar Spine MRI 03/06/22 09:30 IMPRESSION: 1. Suspected metastatic lesion involving the posterior L2 vertebral body with destruction of the posterior cortex. This is unchanged since recent CT. Mild pathologic compression superior endplate L2 with edema. Edema extends into the LEFT pedicle. 2. Mild central canal stenosis L2-L3. Severe central canal stenosis L3-L4. Moderate central stenosis L5-S1. 3. Mild to moderate bony foraminal narrowing at RIGHT L2-L3, LEFT L3-L4, LEFT L4-L5 and bilateral L5-S1. 4. Polycystic kidneys bilaterally. Bone Scan Nuclear Medicine 03/08/22 13:59 IMPRESSION: 1. Focal osseous uptake in the L2 vertebral body and superior endplate compatible with the previously described suspected metastatic lesion and pathologic fracture on the recent MRI and CT. 2. No other foci of suspicious activity. Laboratory Results WBC 4.0 10^3/uL (4.0-10.0) 03/06/22 04:28 RBC 3.36 10^6/uL (4.1-5.3) L 03/06/22 04:28 Hgb 9.8 g/dL (11.5-15.3) L 03/06/22 04:28 Hct 32.7 % (37.0-47.0) L 03/06/22 04:28 MCV 97.3 fl (81-99) 03/06/22 04:28 MCH 29.2 pg (28.0-34.0) 03/06/22 04:28 MCHC 30.0 g/dL (30.0-36.0) 03/06/22 04:28 RDW 13.6 % (12.1-15.1) 03/06/22 04:28 Plt Count 169 10^3/cmm (130-400) 03/06/22 04:28 MPV 11.1 fL (7.4-10.4) H 03/06/22 04:28 Neut % (Auto) 66.3 % 03/06/22 04:28 Lymph % (Auto) 20.1 % 03/06/22 04:28 [place] % (Auto) 8.7 % 03/06/22 04:28 Eos % (Auto) 3.7 % 03/06/22 04:28 Baso % (Auto) 0.7 % 03/06/22 04:28 Neut # (Auto) 2.66 10^3/uL (1.8-7.7) 03/06/22 04:28 Lymph # (Auto) 0.8 10^3/uL (0.8-4.8) 03/06/22 04:28 [place] # (Auto) 0.4 10^3/uL (0.2-0.9) 03/06/22 04:28 Eos # (Auto) 0.2 10^3/uL (0.0-0.8) 03/06/22 04:28 Baso # (Auto) 0.0 10^3/uL (0.0-0.1) 03/06/22 04:28 Nucleated RBC % (auto) 0 % 03/06/22 04:28 Nucleated RBCs # 0.0 /100WBC 03/06/22 04:28 Sodium 141 mmol/L (136-145) 03/06/22 04:28 Potassium 4.0 mmol/L (3.5-5.1) 03/06/22 04:28 Chloride 105 mmol/L (98-107) 03/06/22 04:28 Carbon Dioxide 28 mmol/L (22-29) 03/06/22 04:28 Anion Gap 12.0 (5-19) 03/06/22 04:28 BUN 16 mg/dL (8-23) 03/06/22 04:28 Creatinine 0.7 mg/dL (0.5-0.9) 03/06/22 04:28 GFR Calculation Not Reportable 03/06/22 04:28 Glucose 116 mg/dL (65-115) H 03/06/22 04:28 Estimat Average Glucose 100 03/05/22 04:24 Hemoglobin A1c 5.1 % (4.0-6.0) 03/05/22 04:24 Calculated Osmolality 294 mOsm/kg (285-295) 03/06/22 04:28 Lactate 1.4 mmol/L (0.5-2.2) 03/04/22 03:15 Calcium 8.9 mg/dL (8.5-10.5) 03/06/22 04:28 Iron 25 ug/dL (37-145) L 03/04/22 03:15 TIBC 312 mcg/dl 03/04/22 03:15 % Saturation 8.0 % (20-50) L 03/04/22 03:15 Unsat Iron Binding 287 ug/dL (112-347) 03/04/22 03:15 Total Bilirubin 0.4 mg/dL (0.15-1.2) 03/05/22 04:24 AST 9 U/L (0-32) 03/05/22 04:24 ALT < 5 U/L (0-33) 03/05/22 04:24 Alkaline Phosphatase 72 U/L (35-105) 03/05/22 04:24 C-Reactive Protein 42.9 mg/L (0.0-4.9) H 03/04/22 03:15 Total Protein 6.2 g/dL (6.6-8.7) L 03/05/22 04:24 Albumin 2.8 g/dL (3.5-5.2) L 03/05/22 04:24 Globulin 3.4 g/dL (1.3-4.6) 03/05/22 04:24 Wrpqc-7-Kgicxxzcb 0.5 g/dL (0.2-0.3) H 03/04/22 12:00 Wgovh-7-Szftbhhmf 0.9 g/dL (0.5-0.9) 03/04/22 12:00 Ummw-1-Shwgnfyi 0.4 g/dL (0.4-0.6) 03/04/22 12:00 Ccbi-9-Vtldhbmu 0.3 g/dL (0.2-0.5) 03/04/22 12:00 Gamma Globulins 1.1 g/dL (0.8-1.7) 03/04/22 12:00 Abnorm Protein Band 1 0.3 g/dL (NONE DETECTED) H 03/04/22 12:00 Triglycerides 84 mg/dL (0-150) 03/05/22 04:24 Cholesterol 88 mg/dL (0-200) 03/05/22 04:24 LDL Cholesterol, Calc 23 mg/dL (50-129) L 03/05/22 04:24 Total VLDL Cholesterol 17 mg/dL (0-30) 03/05/22 04:24 HDL Cholesterol 48 mg/dL (60-100) L 03/05/22 04:24 Cholesterol/HDL Ratio 1.83 mg/dL (0.0-4.40) 03/05/22 04:24 Carcinoembryonic Ag 2.3 ng/mL (0.0-4.7) 03/06/22 04:28 CA 19-9 Antigen 9.11 U/mL (0-35) 03/06/22 04:28 CA 19-9 Antigen Cancelled 03/06/22 04:28 Vitamin B12 321 pg/mL (232-1245) 03/04/22 03:15 Folate 8.3 ng/mL (4.8-37.3) 03/04/22 12:00 Procalcitonin 0.06 ng/mL (0-0.5) 03/04/22 03:15 TSH 1.88 uIU/mL (0.27-4.20) 03/04/22 12:00 PTH Intact 27.7 pg/mL (15-65) 03/04/22 12:00 Calcium (PTH Intact) 9.2 mg/dL (8.5-10.5) 03/04/22 12:00 Urine Color Yellow (Yellow) 03/04/22 15:02 Urine Appearance Sl hazy (CLEAR) A 03/04/22 15:02 Urine pH 5 (5-7) 03/04/22 15:02 Ur Specific [place] 1.020 (1.005-1.030) 03/04/22 15:02 Urine Protein Neg (Negative) 03/04/22 15:02 Urine Glucose (UA) Norm (Normal) 03/04/22 15:02 Urine Ketones Negative (Negative) 03/04/22 15:02 Urine Blood 2+ (Negative) H 03/04/22 15:02 Urine Nitrate Positive (Negative) H 03/04/22 15:02 Urine Bilirubin Neg (Negative) 03/04/22 15:02 Urine Urobilinogen Norm mg/dL (Negative) 03/04/22 15:02 Ur Leukocyte Esterase 2+ (Negative) H 03/04/22 15:02 Urine RBC 5-10 /hpf (0-2) H 03/04/22 15:02 Urine WBC >100 /hpf (0-5) H 03/04/22 15:02 Ur Squamous Epith Cells 5-10 /hpf (0-5) H 03/04/22 15:02 Amorphous Sediment Not Reportable 03/04/22 15:02 Urine Bacteria 2+ /hpf (NONE) H 03/04/22 15:02 Ur Random Creatinine 133 mg/dL (20-275) 03/04/22 15:02 Ur Random Albumin 100 % 03/04/22 15:02 U Random Total Protein 20 mg/dL (5-24) 03/04/22 15:02 Protein/Creatinin Ratio 150 mg/g creat (24-184) 03/04/22 15:02 Protein/Creat Ratio 24h 0.150 (0.024-0.184) 03/04/22 15:02 U Random m-9-Cflrymdz % 0 % 03/04/22 15:02 U Random a-0-Zqwjeiqe % 0 % 03/04/22 15:02 U Random Beta Globulin 0 % 03/04/22 15:02 U Random Gamma Glob 0 % 03/04/22 15:02 U Abnormal Prot Band 1 Not Reportable 03/04/22 15:02 U Abnormal Prot Band 2 Not Reportable 03/04/22 15:02 U Abnormal Prot Band 3 Not Reportable 03/04/22 15:02 Urine PEP Interpret See note 03/04/22 15:02 Pro Electrophoresis Int See note 03/04/22 12:00 Free [place] Light Chains 42.1 mg/L (3.3-19.4) H 03/04/22 11:31 Free [place] Light Chain 33.9 mg/L (5.7-26.3) H 03/04/22 11:31 Free [place]/Lambda Ratio 1.24 (0.26-1.65) 03/04/22 11:31 Vitals Last Vital Signs Temp 97.8 F 03/08/22 12:00 Pulse 62 03/08/22 12:00 Resp 18 03/08/22 12:00 BP 149/79 03/08/22 12:00 Pulse Ox 96 03/08/22 12:00 O2 Del Method 03/08/22 12:00 O2 Flow Rate 2 03/08/22 03:40 Discharge Plan Discharge Patient Disposition: Home Condition: Stable Prescriptions: New Senna Lax 8.6 mg Tablet 17.2 mg PO BEDTIME PRN (Reason: constipation) 14 Days Qty: 14 0RF docusate sodium 100 mg Capsule 100 mg PO BID PRN (Reason: Constipation) 14 Days Qty: 28 0RF nitrofurantoin monohyd/m-cryst 100 mg Capsule 100 mg PO BID 5 Days Qty: 10 0RF ferrous gluconate 324 mg (37.5 mg iron) Tablet 324 mg PO BIDWM 30 Days Qty: 30 0RF atorvastatin 40 mg Tablet 80 mg PO BEDTIME 30 Days Qty: 30 0RF Continued (DME) Diabetic Shoes Qty: 1 0RF Rx Instructions: As directed levocetirizine 5 mg tablet 5 mg PO DAILY ferrous sulfate [Feosol] 325 mg (65 mg iron) tablet 325 mg PO DAILY furosemide [Lasix] 40 mg tablet 40 mg PO QAM levothyroxine 100 mcg capsule 100 mcg PO DAILY Eliquis 5 mg tablet 5 mg PO BID Hold Instructions: Resume on 01/04/22. S/P CVA. ASA only then add eliquis after 1 -2 weeks esomeprazole magnesium [Nexium] 40 mg capsule,delayed release(DR/EC) 40 mg PO DAILY potassium chloride 20 mEq packet 20 meq PO DAILY methenamine mandelate 1 gram tablet 1 gm PO BID (DME) Arm Supports for walker See Rx Instructions .Route .MEDSUPPLY Qty: 1 0RF Rx Instructions: As directed (DME) Lift Chair See Rx Instructions .Route .MEDSUPPLY Qty: 1 0RF Rx Instructions: As directed valsartan 160 mg tablet 160 mg PO DAILY Qty: 90 0RF Hold Instructions: Resume on 01/04/22. holding BP meds for permissive hypertension post CVA. Usually hold for 7 days and add gradually. (DME) Incontinent supplies Briefs See Rx Instructions .Route .MEDSUPPLY Qty: 120 12RF Rx Instructions: As directed fluticasone propionate [Flonase Allergy Relief] 50 mcg/actuation spray,suspension 1 spray intranasal BID PRN (Reason: Nasal Congestion) Rx Instructions: administer into each nostril amlodipine 5 mg Tablet 5 mg PO DAILY Hold Instructions: Resume on 01/04/22. metformin 500 mg tablet extended release 24 hr 500 mg PO DAILY tramadol 50 mg tablet 25 mg PO BID PRN (Reason: Pain) metoprolol tartrate 25 mg Tablet 25 mg PO BID@ Qty: 60 0RF rosuvastatin 20 mg tablet 20 mg PO DAILY Discharge Orders: Discharge Order (Routine); Ordered 03/08/22 Ordered By: Aundrea Butt Referrals: Jean Garibay DO [Physician] - 03/13/22 8:00 am (His office will call you to schedule procedure) Shaan Carty FNP [Primary Care Provider] - 03/14/22 10:00 am Remy Charles MD [Hospitalist] - 03/15/22 8:00 am Discharge Diet: Cardiac Discharge Activity: Resume usual activity Patient Instructions: Back Pain, Iron Supplements (By mouth), Laxative, Stool Softeners (By mouth), Atorvastatin (By mouth), Nitrofurantoin Combination (By mouth), Senna (By mouth), Opioid Safety Activity Restrictions/Additional Instructions: Please follow-up with Dr. Garibay's office as an outpatient. Her procedure will be scheduled for this upcoming Sunday. Do not take your Eliquis Sunday and till after the procedure. Follow instructions after procedure regarding when to restart Eliquis. He will also follow-up with Dr. Charles as an outpatient to go over the pathology results. Dr. Garibay's office will contact you regarding instructions for procedure in more detail. Sunday night after midnight do not have anything to eat or drink in preparation for procedure Sunday. Discharge Attestations Time Spent in Discharge Care*: greater than 30 min Quality Metrics Clinical Quality Measures [ No reported AMI, CVA or VTE this stay] Coding Level of Care Code Acute g FW UT note Diagnoses Lesion of lumbar spine M89.9 Intractable back pain M54.9
--- NOTE | 2022-03-08 13:59 | NM_ITS ---
WS: [id number] NUCLEAR MEDICINE BONE SCAN Radiopharmaceutical: 25.1 Tc-99m MDP mCi IV Injection site: antecubital Postinjection imaging delay: 1 hr CLINICAL INFORMATION: metastatic bone lesion COMPARISON: MRI March 06, 2022 FINDINGS: Bone lesions: Focal osseous uptake in the L2 vertebral body and superior endplate compatible with the previously described suspected metastatic lesion with pathologic fracture seen on the MRI and CT. No other foci of suspicious activity. Soft tissue contours: Normal. Kidneys: Normal. Other findings: Degenerative type uptake involving the AC joints and both knees. NM/NM bone scan whole body* [id number] IMPRESSION: 1. Focal osseous uptake in the L2 vertebral body and superior endplate compati ble with the previously described suspected metastatic lesion and pathologic fr acture on the recent MRI and CT. 2. No other foci of suspicious activity.
[2022-03-08 14:50] VITALS: BP 149/79; PULSE 62; RESP 18; TEMP 36.6; O2SAT 96
[2022-03-09 12:03] LABS: Vit D 1,25 (Oh)2, Total 37 pg/mL (18-72); Vit D2 1,25 (Oh)2 15 pg/mL; Vit D3 1,25 (Oh)2 22 pg/mL
[2022-03-12 13:08] LABS: Kappa Free Light Chains Urine 75.14 mg/L (<=32.90)
== END 2022-03-08 14:51 | disposition home or self-care (01) | DRG 565 ==
LOC: ER 02:25 → MEDSURG 09:38
PROVIDERS: Student in an Organized Health Care Education/Training Program; Admitting Provider Student in an Organized Health Care Education/Training Program; Emergency Provider Emergency Medicine; PCP Registered Nurse; Visit Provider Internal Medicine
DX: D49.2 Neoplasm of unspecified behavior of bone, soft tissue, and skin (principal); I13.0 Hypertensive heart and chronic kidney disease with heart failure and stage 1 through stage 4 chronic kidney disease, or unspecified chronic kidney disease; I48.20 Chronic atrial fibrillation, unspecified; N39.0 Urinary tract infection, site not specified; Q61.3 Polycystic kidney, unspecified; E11.22 Type 2 diabetes mellitus with diabetic chronic kidney disease; N18.9 Chronic kidney disease, unspecified; I50.9 Heart failure, unspecified; E03.9 Hypothyroidism, unspecified; Z86.73 Personal history of transient ischemic attack (TIA), and cerebral infarction without residual deficits; Z86.16 Personal history of COVID-19; D63.1 Anemia in chronic kidney disease; Z85.828 Personal history of other malignant neoplasm of skin; E78.5 Hyperlipidemia, unspecified; B96.20 Unspecified Escherichia coli [E. coli] as the cause of diseases classified elsewhere; M48.061 Spinal stenosis, lumbar region without neurogenic claudication; Z79.891 Long term (current) use of opiate analgesic; Z79.84 Long term (current) use of oral hypoglycemic drugs; Z79.01 Long term (current) use of anticoagulants; M54.50 Low back pain, unspecified; G89.3 Neoplasm related pain (acute) (chronic)
CPT/HCPCS: 36415; 51702; 71250; 72148; 74176; 78306; 80048; 80053; 80061; 80503; 81001; 82310; 82378; 82570; 82607; 82652; 82746; 83036; 83540; 83550; 83605; 83883; 83970; 84145; 84155; 84156; 84165; 84166; 84443; 85025; 86140; 86301; 86335; 87040; 87077; 87086; 87186; 94664; 96374; 96375; 96376; 97110; 97116; 97162; 97530; 99285; A9561; G0378; J0360; J2270; J2405; J2765; J7030; L0637

== ENCOUNTER 2022-06-19 14:46 | Outpatient (CLI) | payer MEDICARE, MEDICAID, SELFPAY | END 2022-06-19 14:47 | disposition home or self-care (01) | LOC: SPT 14:47 | PROVIDERS: PCP Registered Nurse; Visit Provider Podiatrist Foot & Ankle Surgery | DX: Z46.89 Encounter for fitting and adjustment of other specified devices (principal); L97.522 Non-pressure chronic ulcer of other part of left foot with fat layer exposed; I73.9 Peripheral vascular disease, unspecified; E11.621 Type 2 diabetes mellitus with foot ulcer; L84 Corns and callosities; M20.42 Other hammer toe(s) (acquired), left foot; M20.12 Hallux valgus (acquired), left foot; M20.11 Hallux valgus (acquired), right foot; M21.41 Flat foot [pes planus] (acquired), right foot; M21.42 Flat foot [pes planus] (acquired), left foot; L60.3 Nail dystrophy; E11.42 Type 2 diabetes mellitus with diabetic polyneuropathy; Z79.4 Long term (current) use of insulin | CPT/HCPCS: 11042; 11721; 97760; L4361 ==

== ENCOUNTER 2022-07-04 19:57 | Emergency (ER) | payer MEDICARE, MEDICAID, SELFPAY ==
[2022-07-04 20:04] VITALS: BP 101/68; PULSE 115; RESP 20; TEMP 36.3; O2SAT 96; BMI 35.4
[2022-07-04 20:54] LABS: Basophils % 0.1 %; Eosinophils % 0.4 %; Hematocrit 39.3 % (37.0-47.0); Hemoglobin 12.2 g/dL (11.5-15.3); Lymphocytes # 1.6 10^3/uL (0.8-4.8); Lymphocytes % 22.3 %; Mean Corpuscular Hemoglobin 30.7 pg (28.0-34.0); Mean Corpuscular Volume 98.7 fl (81-99); Mean Platelet Volume 10.3 fL (7.4-10.4); Monocytes # 0.5 10^3/uL (0.2-0.9); Monocytes % 6.2 %; Neutrophils # 5.07 10^3/uL (1.8-7.7); Neutrophils % 69.6 %; Nucleated Red Blood Cells % 0 %; Platelet Count 174 10^3/cmm (130-400); Red Blood Count 3.98 10^6/uL (4.1-5.3); Red Cell Distribution Width 17.5 % (12.1-15.1); White Blood Count 7.3 10^3/uL (4.0-10.0)
[2022-07-04 21:11] LABS: Alanine Aminotransferase 24 U/L (0-33); Albumin Level 3.5 g/dL (3.5-5.2); Alkaline Phosphatase 70 U/L (35-105); Anion Gap 15.8 (5-19); Aspartate Amino Transferase 15 U/L (0-32); Blood Urea Nitrogen 45 mg/dL (8-23); Calcium 8.9 mg/dL (8.5-10.5); Carbon Dioxide 27 mmol/L (22-29); Chloride 104 mmol/L (98-107); Globulin 2.6 g/dL (1.3-4.6); Glucose 194 mg/dL (65-115); Lipase 53 U/L (13-60); Osmolality Calculated 311 mOsm/kg (285-295); Potassium 4.8 mmol/L (3.5-5.1); Sodium 142 mmol/L (136-145); Total Bilirubin 0.3 mg/dL (0.15-1.2); Total Protein 6.1 g/dL (6.6-8.7)
--- NOTE | 2022-07-04 22:41 | CTR_ITS ---
PROCEDURE INFORMATION: Exam: CT Abdomen And Pelvis Without Contrast Exam date and time: 07/04/2022 11:05 PM Age: 87 years old Clinical indication: Abdominal pain; Localized; Right lower quadrant (rlq); Prior surgery; Surgery type: Gb. Lumbar. Bilat oophorectomy. Patient HX: C/O rlq and low back pain. ; Additional info: Abd pain TECHNIQUE: Imaging protocol: Computed tomography of the abdomen and pelvis without contrast. Radiation optimization: All CT scans at this facility use at least one of these dose optimization techniques: automated exposure control; mA and/or kV adjustment per patient size (includes targeted exams where dose is matched to clinical indication); or iterative reconstruction. REPORTING DATA: Count of CT and Cardiac NM exams in prior 12 months: This patient has received 6 known CTs and 0 known cardiac nuclear medicine studies in the 12 months prior to the current study. COMPARISON: CT kidney stone [id number] 03/04/2022 3:27 AM RADIATION DOSE METRICS: Total DLP (mGy-cm): 774.93 FINDINGS: Lungs: Subpleural interstitial opacities are unchanged and likely chronic. Heart: Four-chamber cardiomegaly is unchanged. Liver: Normal. No mass. Gallbladder and bile ducts: Stable post cholecystectomy changes. Stable mild extrahepatic biliary ductal prominence without visible stone. Pancreas: Normal. No ductal dilation. Spleen: Normal. No splenomegaly. Adrenal glands: Normal. No mass. Kidneys and ureters: Cyst in the upper pole of the right kidney with calcified internal septation measuring 6 cm is unchanged. Additional bilateral simple renal cysts are unchanged. There are punctate bilateral nonobstructing nephroliths which are unchanged. Stomach and bowel: Colonic diverticuli are again present with muscular hypertrophy versus wall thickening in the sigmoid. Appendix: No evidence of appendicitis. Intraperitoneal space: Unremarkable. No free air. No significant fluid collection. Vasculature: Unremarkable. No abdominal aortic aneurysm. Lymph nodes: Unremarkable. No enlarged lymph nodes. Urinary bladder: Underdistended versus thickened bladder. Reproductive: Unremarkable as visualized. Bones/joints: Lytic lesion in the posterior aspect of the L2 vertebrae appears progressive with is least moderate spinal canal stenosis at this level due to epidural tumor extension which is incompletely assessed. There is also mild loss of height which is slightly progressive. Soft tissues: Unremarkable. CT/CT abdomen pelvis wo con [id number] IMPRESSION: 1. Sigmoid colonic muscular hypertrophy versus wall thickening. Correlate for possible mild acute diverticulitis clinically. 2. Lytic lesion in L2 is progressive since previous with moderate associated spinal canal narrowing related to dorsal epidural tumor extension. This is incompletely assessed by CT and follow-up MRI of the lumbar spine with and without contrast material is recommended. 3. Underdistended versus thickened bladder. Correlate for cystitis.
[2022-07-04] MEDS: HYDROcodone-acetaminophen 7.5-325 mg Tablet 1 TAB PO (22:44)
[2022-07-04 22:54] LABS: Add Urine Microscopic? NO; Charge for UA Resulting for Rev
--- NOTE | 2022-07-04 22:56 | W.ED.ABDPA2 ---
HPI - Abdominal Pain General: Chief Complaint: Abdominal Pain Stated Complaint: pain all over Time Seen by Provider: 07/04/22 22:12 Source: patient Mode of arrival: ambulatory Limitations: no limitations History of Present Illness: 87-year-old female states she has been having pains all over but mainly in the right lower quadrant states that she been having right lower quadrant pain over the last 2 weeks she states pain is sharp in nature rates an 8 out of 10 she denies any vomiting denies diarrhea denies any fevers denies any worsening proving factors. Associated Symptoms: Denies chills, dysuria and fever(s) Review of Systems Const: Denies: fever(s), chills, body aches or change in appetite Eyes: Denies: blurry vision or eye discomfort ENMT: Denies: throat pain or dental pain Card: Denies: chest pain Resp: Denies: dyspnea GI: Reports: abdominal pain : Denies: dysuria Musc: Denies: neck pain or back pain Skin/Breast: Denies: rash Neuro: Denies: headache(s) Psych: Denies: depression Elvis/Lymph: Denies: easy bruising All/Imm: Denies: urticaria PFSH ED PFSH: Medical History Actinic keratosis left forearm, removed Anemia At high risk for falls Atrial fibrillation with RVR Basal cell carcinoma left earlobe, removed Cerebrovascular accident with involvement of left side of body CHF (congestive heart failure) Chronic a-fib Chronic anticoagulation Eliquis, for chronic afib Chronic cystitis CKD (chronic kidney disease) COVID-19 (~07/2020) Diabetes Dyslipidemia Feeling of incomplete bladder emptying Glucose intolerance prediabetes, on metformin Hypertension Hypothyroidism Incontinent of urine Left shoulder pain Osteoarthritis of left shoulder Surgical History H/O bilateral oophorectomy History of back surgery lumbar Hx of cholecystectomy several complications requiring additional procedures post op Hx of total knee replacement Family History Father , at age 79 Diabetes Daughter Stroke Family/Other Stroke Aunt Social History Smoking and tobacco status: never smoked Alcohol intake: never Adopted: No Lives independently: Yes Housing: House Current occupational status: retired Female Reproductive History: Para: 6 Spontaneous abortions: Yes (1) Physical Exam Const: COMMON NORMALS: no acute distress, patient oriented x3 and healthy appearing HENMT: COMMON NORMALS: normocephalic and atraumatic HEAD & SCALP: normocephalic and atraumatic Eye: COMMON NORMALS: Equal, round and reactive pupils present and EOMs intact bilaterally PUPIL: Yes Equal, round and reactive pupils present Neck/C-Spine: COMMON NORMALS: full ROM and supple Chest: COMMONS NORMALS: normal inspection of the chest and normal palpation of entire chest wall Resp: COMMON NORMALS: normal respiratory effort, No retractions, No use of accessory muscles and clear to auscultation bilaterally AUSCULTATION: clear to auscultation bilaterally Cardio: COMMON NORMALS: regular rate, regular rhythm and No murmurs present (Cardio) RATE: regular rate RHYTHM: regular rhythm GI: COMMON NORMALS: Normal to inspection, nondistended, normoactive bowel sounds present, Soft to palpation and no masses PALPATION: Yes Soft to palpation OTHER: diffuse tenderness Extremity: COMMON NORMALS: normal to inspection and full ROM Neuro: COMMON NORMALS: patient oriented x3, moves all extremities and no focal motor deficits Psych: COMMON NORMALS: mental status grossly normal, Normal thought process present and cooperative THOUGHT PROCESS: Normal thought process present Skin: COMMON NORMALS: no rashes or lesions noted and no wounds GENERAL SKIN EXAM: no rashes or lesions noted Course Vital Signs: Vital signs: Vital Signs Temperature 97.4 F L 07/04/22 20:04 Pulse Rate 115 H 07/04/22 20:04 Respiratory Rate 20 H 07/04/22 20:04 Blood Pressure 101/68 07/04/22 20:04 Pulse Oximetry 96 07/04/22 20:04 Oxygen Delivery Me thod 07/04/22 20:04 MDM - Abdominal Pain Medical Decision Making Patient presents with abdominal pain she does have diverticulitis on her CT scan she also has a lytic lesion on L2 that she knew about that she is refused treatment for the past I informed her is worsening appears to be pressing on the spinal cord she is able to ambulate has no bowel or bladder incontinence I did form I recommended an MRI but she states that she does not want any treatment on it I informed her that if the tumor enlarges it could press on the spinal cord and cause paralysis she understands that she states that she does not want any treatment at this time I did get her to agree to follow-up with the spine surgeon outpatient we will treat her diverticulitis and antibiotics informed her she changes her mind or worsen she is to return. Lab Data 07/04/22 20:35 07/04/22 20:35 Labs/Radiology: Radiology Impressions Abdomen/Pelvis CT 07/04/22 22:41 IMPRESSION: 1. Sigmoid colonic muscular hypertrophy versus wall thickening. Correlate for possible mild acute diverticulitis clinically. 2. Lytic lesion in L2 is progressive since previous with moderate associated spinal canal narrowing related to dorsal epidural tumor extension. This is incompletely assessed by CT and follow-up MRI of the lumbar spine with and without contrast material is recommended. 3. Underdistended versus thickened bladder. Correlate for cystitis. Laboratory Results WBC 7.3 10^3/uL (4.0-10.0) 07/04/22 20:35 RBC 3.98 10^6/uL (4.1-5.3) L 07/04/22 20:35 Hgb 12.2 g/dL (11.5-15.3) 07/04/22 20:35 Hct 39.3 % (37.0-47.0) 07/04/22 20:35 MCV 98.7 fl (81-99) 07/04/22 20:35 MCH 30.7 pg (28.0-34.0) 07/04/22 20:35 MCHC 31.0 g/dL (30.0-36.0) 07/04/22 20:35 RDW 17.5 % (12.1-15.1) H 07/04/22 20:35 Plt Count 174 10^3/cmm (130-400) 07/04/22 20:35 MPV 10.3 fL (7.4-10.4) 07/04/22 20:35 Neut % (Auto) 69.6 % 07/04/22 20:35 Lymph % (Auto) 22.3 % 07/04/22 20:35 [place] % (Auto) 6.2 % 07/04/22 20:35 Eos % (Auto) 0.4 % 07/04/22 20:35 Baso % (Auto) 0.1 % 07/04/22 20:35 Neut # (Auto) 5.07 10^3/uL (1.8-7.7) 07/04/22 20:35 Lymph # (Auto) 1.6 10^3/uL (0.8-4.8) 07/04/22 20:35 [place] # (Auto) 0.5 10^3/uL (0.2-0.9) 07/04/22 20:35 Eos # (Auto) 0.0 10^3/uL (0.0-0.8) 07/04/22 20:35 Baso # (Auto) 0.0 10^3/uL (0.0-0.1) 07/04/22 20:35 Nucleated RBC % (auto) 0 % 07/04/22 20:35 Nucleated RBCs # 0.0 /100WBC 07/04/22 20:35 Sodium 142 mmol/L (136-145) 07/04/22 20:35 Potassium 4.8 mmol/L (3.5-5.1) 07/04/22 20:35 Chloride 104 mmol/L (98-107) 07/04/22 20:35 Carbon Dioxide 27 mmol/L (22-29) 07/04/22 20:35 Anion Gap 15.8 (5-19) 07/04/22 20:35 BUN 45 mg/dL (8-23) H 07/04/22 20:35 Creatinine 1.7 mg/dL (0.5-0.9) H 07/04/22 20:35 GFR Calculation Not Reportable 07/04/22 20:35 Glucose 194 mg/dL (65-115) H 07/04/22 20:35 Calculated Osmolality 311 mOsm/kg (285-295) H 07/04/22 20:35 Calcium 8.9 mg/dL (8.5-10.5) 07/04/22 20:35 Total Bilirubin 0.3 mg/dL (0.15-1.2) 07/04/22 20:35 AST 15 U/L (0-32) 07/04/22 20:35 ALT 24 U/L (0-33) 07/04/22 20:35 Alkaline Phosphatase 70 U/L (35-105) 07/04/22 20:35 Troponin T Baseline 38 ng/L (0-10) H 07/04/22 20:35 Troponin T 120 Minute 42.02 ng/L (0-10) H 07/04/22 23:22 Delta Troponin T 4.02 ABS# (0-10) 07/04/22 23:22 Total Protein 6.1 g/dL (6.6-8.7) L 07/04/22 20:35 Albumin 3.5 g/dL (3.5-5.2) 07/04/22 20:35 Globulin 2.6 g/dL (1.3-4.6) 07/04/22 20:35 Lipase 53 U/L (13-60) 07/04/22 20:35 Urine Color Yellow (Yellow) 07/04/22 22:51 Urine Appearance Clear (CLEAR) 07/04/22 22:51 Urine pH 5 (5-7) 07/04/22 22:51 Ur Specific [place] 1.020 (1.005-1.030) 07/04/22 22:51 Urine Protein Neg (Negative) 07/04/22 22:51 Urine Glucose (UA) Norm (Normal) 07/04/22 22:51 Urine Ketones Negative (Negative) 07/04/22 22:51 Urine Blood Neg (Negative) 07/04/22 22:51 Urine Nitrate Negative (Negative) 07/04/22 22:51 Urine Bilirubin Neg (Negative) 07/04/22 22:51 Urine Urobilinogen Norm mg/dL (Negative) 07/04/22 22:51 Ur Leukocyte Esterase Negative (Negative) 07/04/22 22:51 Discharge Plan Discharge Patient Disposition: Home Clinical Impression: Diverticulitis, Spinal cord tumor Condition: Stable Prescriptions: New metronidazole 500 mg tablet 500 mg PO Q8H 7 Days Qty: 21 0RF Cipro 500 mg tablet 500 mg PO BID Qty: 14 0RF No Action (DME) Diabetic Shoes Qty: 1 0RF Rx Instructions: As directed levocetirizine 5 mg tablet 5 mg PO DAILY ferrous sulfate [Feosol] 325 mg (65 mg iron) tablet 325 mg PO DAILY furosemide [Lasix] 40 mg tablet 40 mg PO QAM levothyroxine 100 mcg capsule 100 mcg PO DAILY Eliquis 5 mg tablet 5 mg PO BID Hold Instructions: Resume on 01/04/22. S/P CVA. ASA only then add eliquis after 1 -2 weeks esomeprazole magnesium [Nexium] 40 mg capsule,delayed release(DR/EC) 40 mg PO DAILY potassium chloride 20 mEq packet 20 meq PO DAILY (DME) Arm Supports for walker See Rx Instructions .Route .MEDSUPPLY Qty: 1 0RF Rx Instructions: As directed (DME) Lift Chair See Rx Instructions .Route .MEDSUPPLY Qty: 1 0RF Rx Instructions: As directed (DME) Cam Boot to the left See Rx Instructions .Route .MEDSUPPLY Qty: 1 0RF Rx Instructions: As directed sulfamethoxazole-trimethoprim [Bactrim DS] 800-160 mg tablet 1 tab PO BID 10 Days Qty: 20 0RF valsartan 160 mg tablet 160 mg PO DAILY Qty: 90 0RF Hold Instructions: Resume on 01/04/22. holding BP meds for permissive hypertension post CVA. Usually hold for 7 days and add gradually. (DME) Incontinent supplies Briefs See Rx Instructions .Route .MEDSUPPLY Qty: 120 12RF Rx Instructions: As directed prednisone 10 mg tablet 10 mg PO BID Qty: 60 0RF hydrocodone-acetaminophen 5-325 mg tablet 1 tab PO Q12H PRN (Reason: pain) 30 Days Qty: 60 0RF metformin 500 mg tablet extended release 24 hr 500 mg PO DAILY rosuvastatin 20 mg tablet 20 mg PO DAILY Tylenol Ex Str Rapid Release 500 mg Tablet 500 mg PO BID methenamine hippurate 1 gram tablet 1 g PO BID metoprolol tartrate 50 mg tablet 25 mg PO DAILY Discharge Orders: Discharge ED (Routine); Ordered 07/05/22 Ordered By: Elizabeth Aguilar Referrals: Jean Garibay DO [Physician] - 1-3 days Shaan Carty FNP [Primary Care Provider] - Discharge Diet: Advance as tolerated Discharge Activity: Resume usual activity Patient Instructions: Diverticulitis (ED) Coding Level of Care Code ED [facility] Nurse for Jus Burns
[2022-07-04 23:00] LABS: Bilirubin Urine Neg (Negative); Blood Urine Neg (Negative); Glucose Urine UA Norm (Normal); Ketones Urine Negative (Negative); Leukocyte Esterase Urine Negative (Negative); Nitrate Urine Negative (Negative); Protein Urine Neg (Negative); Urine Appearance Clear (CLEAR); Urine Color Yellow (Yellow); Urobilinogen Urine Norm (Negative); pH Urine 5 (5-7)
--- NOTE | 2022-07-04 23:00 | ECG_ITS ---
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 Measurements Intervals [place] Rate: 93 P: 0 AR: 0 QRS: 11 QRSD: 97 T: -51 QT: 342 QTc: 427 Interpretive Statements ATRIAL FIBRILLATION LOW QRS VOLTAGE IN PRECORDIAL LEADS [QRS DEFLECTION < 1.0 mV IN CHEST LEADS] PATTERN CONSISTENT WITH PULMONARY DISEASE INCOMPLETE RIGHT BUNDLE BRANCH BLOCK [90+ ms QRS DURATION, TERMINAL R IN V1/V2, 40+ ms S IN I/aVL/V4/V5/V6] ST DEVIATION AND MODERATE T-WAVE ABNORMALITY, CONSIDER INFERIOR ISCHEMIA [-0.1+ mV T-WAVE IN II/aVF] Compared to ECG 12/27/2021 16:48:59 T-wave abnormality now present Possible ischemia now present ST (T wave) deviation no longer present Electronically Signed On 07-05-2022 10:24:46 CRYPTOLOGIST by Osman Finley M.D. [id number]
[2022-07-04 23:40] LABS: Troponin(5th) Baseline 38 ng/L (0-10)
[2022-07-04 23:44] LABS: Troponin 5 2HR 42.02 ng/L (0-10)
[2022-07-05 00:03] LABS: Troponin 5 2HR Delta 4.02 ABS# (0-10)
[2022-07-05] MEDS: dexamethasone 10 mg/mL INJ IVP (01:46)
[2022-07-05 02:04] VITALS: BP 110/59; PULSE 104; RESP 20; O2SAT 88
--- NOTE | 2022-07-05 09:23 | DCPLANNER ---
Addendum entered by Kallie Cazares 07/20/22 11:32: Patient had a follow up scheduled with ortho - patient did attend appointment. Original Note: manager home improvement had message to schedule a follow up appointment for patient with ortho. manager home improvement sent patients information to the front office staff at ortho. Patients information will be printed and reviewed. Clinic will call patient with appointment information.
== END 2022-07-05 02:06 | disposition home or self-care (01) ==
PROVIDERS: Emergency Provider Emergency Medicine; PCP Registered Nurse
DX: K57.92 Diverticulitis of intestine, part unspecified, without perforation or abscess without bleeding (principal); D49.7 Neoplasm of unspecified behavior of endocrine glands and other parts of nervous system; Z79.01 Long term (current) use of anticoagulants; Z86.73 Personal history of transient ischemic attack (TIA), and cerebral infarction without residual deficits; I13.0 Hypertensive heart and chronic kidney disease with heart failure and stage 1 through stage 4 chronic kidney disease, or unspecified chronic kidney disease; E11.22 Type 2 diabetes mellitus with diabetic chronic kidney disease; N18.9 Chronic kidney disease, unspecified; I50.9 Heart failure, unspecified; E78.5 Hyperlipidemia, unspecified
CPT/HCPCS: 36415; 74176; 80053; 81003; 83690; 84484; 85025; 93005; 96374; 99285; J1100

== ENCOUNTER → 2022-07-12 13:36 | Outpatient (BNVA) | payer MEDICARE, MEDICAID, SELFPAY | PROVIDERS: PCP Registered Nurse; Visit Provider Podiatrist Foot & Ankle Surgery | DX: E11.621 Type 2 diabetes mellitus with foot ulcer (principal); L97.522 Non-pressure chronic ulcer of other part of left foot with fat layer exposed; I73.9 Peripheral vascular disease, unspecified; L84 Corns and callosities; M20.42 Other hammer toe(s) (acquired), left foot; M20.12 Hallux valgus (acquired), left foot; M20.11 Hallux valgus (acquired), right foot; M21.41 Flat foot [pes planus] (acquired), right foot; M21.42 Flat foot [pes planus] (acquired), left foot; L60.3 Nail dystrophy; E11.42 Type 2 diabetes mellitus with diabetic polyneuropathy; Z79.84 Long term (current) use of oral hypoglycemic drugs | CPT/HCPCS: 11042 ==

== ENCOUNTER → 2022-07-18 10:32 | Outpatient (BNVA) | payer MEDICARE, MEDICAID, SELFPAY | PROVIDERS: PCP Registered Nurse; Visit Provider Orthopaedic Surgery | DX: M89.9 Disorder of bone, unspecified (principal); M80.08XA Age-related osteoporosis with current pathological fracture, vertebra(e), initial encounter for fracture; I73.9 Peripheral vascular disease, unspecified; E11.621 Type 2 diabetes mellitus with foot ulcer; L97.522 Non-pressure chronic ulcer of other part of left foot with fat layer exposed; M20.42 Other hammer toe(s) (acquired), left foot; M20.12 Hallux valgus (acquired), left foot; M20.11 Hallux valgus (acquired), right foot; M21.41 Flat foot [pes planus] (acquired), right foot; M21.42 Flat foot [pes planus] (acquired), left foot; L60.3 Nail dystrophy; E11.42 Type 2 diabetes mellitus with diabetic polyneuropathy; Z79.84 Long term (current) use of oral hypoglycemic drugs | CPT/HCPCS: 72110; 99204; 99214 ==

== ENCOUNTER 2022-07-31 07:51 | Emergency (ER) | payer MEDICARE, MEDICAID, SELFPAY ==
[2022-07-31] VITALS (61 sets, daily range): BP systolic 95–136; BP diastolic 45–113; PULSE 80–143; RESP 10–30; TEMP 36.9; O2SAT 89–100; BMI 35.4
--- NOTE | 2022-07-31 07:57 | ECG_ITS ---
[facility] Test Date: 2022-07-31 Pat Name: Evelia Denton Department: Room: Gender: Female Ditch Rider: : 1935 Requested By: Giovanni Crane Order Number: [id number] Shereen MD: Osman Finley M.D. Measurements Intervals [place] Rate: 127 P: 0 NE: 0 QRS: -10 QRSD: 97 T: 122 QT: 342 QTc: 497 Interpretive Statements ATRIAL FIBRILLATION WITH RAPID VENTRICULAR RESPONSE LOW QRS VOLTAGE IN PRECORDIAL LEADS [QRS DEFLECTION < 1.0 mV IN CHEST LEADS] PATTERN CONSISTENT WITH PULMONARY DISEASE INCOMPLETE RIGHT BUNDLE BRANCH BLOCK [90+ ms QRS DURATION, TERMINAL R IN V1/V2, 40+ ms S IN I/aVL/V4/V5/V6] MODERATE ST DEPRESSION [0.05+ mV ST DEPRESSION] ABNORMAL QRS-T ANGLE [QRS-T AXIS DIFFERENCE > 60] Compared to ECG 07/04/2022 23:00:13 ST (T wave) deviation now present T-wave abnormality no longer present Possible ischemia no longer present Electronically Signed On 07-31-2022 16:01:57 CDT by Osman Finley M.D. [id number]
--- NOTE | 2022-07-31 07:57 | XR_ITS ---
WS: [id number] EXAMINATION: XR chest 1V portable [id number] REASON FOR EXAM: dyspnea/cough COMPARISON: 05/25/2019 ORDER DATE: 07/31/2022 7:57 AM TECHNIQUE: A single, portable frontal chest x-ray was obtained. X-RAY FINDINGS: The lungs are clear. There is minor biapical pleural thickening. No pleural effusions or pneumothorax . Cardiomediastinal silhouette is normal except for atherosclerotic aortic change. No evidence for pulm onary edema. Soft tissue and osseous structures are unremarkable. No tubes or lines are present. XR/XR chest 1V portable [id number] IMPRESSION: Unremarkable frontal portable chest x-ray.
--- NOTE | 2022-07-31 08:11 | ED_ITS ---
HPI - Nausea/Vomiting/Diarrhea General: Chief complaint: Nausea/Vomiting/Diarrhea Stated complaint: ILL FOR 5 DAYS/ N/V Time Seen by Provider: 07/31/22 07:56 Source: patient Mode of arrival: EMS History of Present Illness: 79-year-old female presents emergency room complaining of nausea vomiting. She has not taken her usual morning medicines she has a history of A-fib and is on anticoagulants. This morning when she presents she is in A-fib with RVR. She states she is very weak she lives alone her daughter comes and helps her out at times. She has noticed a little bit of blood streaking in the stool no large amounts. She just generally reports having not felt well been somewhat short of breath at home she usually wears 2 L oxygen by nasal cannula at baseline. She denies any productive cough no chest pain. She has some mild lower abdominal/suprapubic discomfort. No radiation of the pain she denies dysuria urgency or frequency. MD elicited complaint: nausea and vomiting Onset (ago): day(s) Associated nausea: Yes Associated abdominal pain: Yes Location of pain: Suprapubic Pain consistency: intermittent Severity: mild Exacerbating factors: none Relieving factors: none Associated symtoms: Reports bloating, fatigue, anorexia, malaise, nausea, palpitations, short of breath and weakness; Denies altered mental status, anxiety, change in vision, chest pain, cough, diaphoresis, decreased urine output, dizziness, dysuria, fecal incontinence, fevers/chills, headache(s), myalgias, numbness, rash, syncope or tenesmus Review of Systems Const: Reports: fatigue and malaise; Denies: fever(s), chills or diaphoresis Eyes: Denies: change in vision Card: Reports: palpitations; Denies: chest pain or syncope Resp: Denies: dyspnea, productive cough or non-productive cough GI: Reports: abdominal pain, nausea, vomiting and bloating; Denies: diarrhea or fecal incontinence : Denies: dysuria, urinary frequency or urinary urgency Skin/Breast: Denies: rash or pruritus Neuro: Denies: headache(s) or dizziness Psych: Denies: anxiety PFSH ED PFSH: Medical History Actinic keratosis left forearm, removed Anemia At high risk for falls Atrial fibrillation with RVR Basal cell carcinoma left earlobe, removed Cerebrovascular accident with involvement of left side of body CHF (congestive heart failure) Chronic a-fib Chronic anticoagulation Eliquis, for chronic afib Chronic cystitis CKD (chronic kidney disease) COVID-19 (~07/2020) Diabetes Dyslipidemia Feeling of incomplete bladder emptying Glucose intolerance prediabetes, on metformin Hypertension Hypothyroidism Incontinent of urine Left shoulder pain Osteoarthritis of left shoulder Surgical History H/O bilateral oophorectomy History of back surgery lumbar Hx of cholecystectomy several complications requiring additional procedures post op Hx of total knee replacement Family History Father , at age 79 Diabetes Daughter Stroke Family/Other Stroke Aunt Social History Smoking and tobacco status: never smoked Alcohol intake: never Adopted: No Lives independently: Yes Housing: House Current occupational status: retired Female Reproductive History: Para: 6 Spontaneous abortions: Yes (1) Physical Exam Const: EXAM LIMITATIONS: no altered mental status GENERAL APPEARANCE: cooperative and comfortable ORIENTATION/CONSCIOUSNESS: Yes awake, Yes oriented to person, Yes oriented to place and Yes oriented to time HENMT: COMMON NORMALS: normocephalic, atraumatic and hearing grossly normal bilaterally HEAD & SCALP: normocephalic and atraumatic Resp: COMMON NORMALS: normal respiratory effort, No retractions, No use of accessory muscles and clear to auscultation bilaterally AUSCULTATION: clear to auscultation bilaterally Cardio: COMMON NORMALS: No murmurs present (Cardio) RATE: tachycardic RHYTHM: abnormal rhythm irregularly irregular GI: COMMON NORMALS: Soft to palpation and No hepatosplenomegaly present AUSCULTATION: Yes normoactive bowel sounds PALPATION: Yes Soft to palpation, No Tenderness to palpation present (GI), No Guarding due to palpation present (GI) and Yes No hepatosplenomegaly present Extremity: COMMON NORMALS: normal to inspection, capillary refill normal, no clubbing, cyanosis or edema, no calf tenderness and no pedal edema Neuro: SENSORIUM/ORIENTATION: Yes oriented to person, Yes oriented to place and Yes oriented to time Skin: COMMON NORMALS: no rashes or lesions noted GENERAL SKIN EXAM: no rashes or lesions noted Course Vital Signs: Vital signs: Vital Signs Temperature 98.4 F 07/31/22 07:52 Pulse Rate 94 07/31/22 13:30 Respiratory Rate 26 H 07/31/22 13:30 Blood Pressure 101/53 07/31/22 13:30 Pulse Oximetry 100 07/31/22 13:20 Oxygen Delivery Me thod 07/31/22 11:55 Oxygen Flow Rate 2 07/31/22 11:55 MDM - Nausea/Vomiting/Diarrhea Medical Decision Making Creatinine and BUN slightly elevated but have been trending elevated on previous lab. She is given 500 normal saline. When she first arrived she was in A-fib with RVR this was controlled with p.o. metoprolol and IV Cardizem her rate improved she was titrated off the Cardizem and her symptoms are better she has no orthopnea no sign of overt failure. She does have a mild cystitis which we can treat as an outpatient she is given ceftriaxone here resume orals tomorrow. She generally is feeling very poorly discussed with the family member I do not have anything we would necessarily admit her and needs to treat while she was an inpatient. We will treat her cystitis is an outpatient recommend she stop her metformin for now and we discussed that with the family and the patient. That may be causing some nausea also may contribute to her renal function issues. Follow-up with her primary care doctor within a week return if is worsening problems. Also discussed home health care versus pursuing [facility] placement. Medical Records I reviewed the patient's medical records. Lab Data I reviewed the patient's lab results. 07/31/22 07:58 07/31/22 07:58 Radiology Impressions Chest X-Ray 07/31/22 07:57 IMPRESSION: Unremarkable frontal portable chest x-ray. Laboratory Results WBC 10.1 10^3/uL (4.0-10.0) H 07/31/22 07:58 RBC 4.64 10^6/uL (4.1-5.3) 07/31/22 07:58 Hgb 14.5 g/dL (11.5-15.3) 07/31/22 07:58 Hct 46.2 % (37.0-47.0) 07/31/22 07:58 MCV 99.6 fl (81-99) H 07/31/22 07:58 MCH 31.3 pg (28.0-34.0) 07/31/22 07:58 MCHC 31.4 g/dL (30.0-36.0) 07/31/22 07:58 RDW 18.5 % (12.1-15.1) H 07/31/22 07:58 Plt Count 224 10^3/cmm (130-400) 07/31/22 07:58 MPV 10.9 fL (7.4-10.4) H 07/31/22 07:58 Neut % (Auto) 68.4 % 07/31/22 07:58 Lymph % (Auto) 21.7 % 07/31/22 07:58 [place] % (Auto) 9.0 % 07/31/22 07:58 Eos % (Auto) 0.3 % 07/31/22 07:58 Baso % (Auto) 0.1 % 07/31/22 07:58 Neut # (Auto) 6.93 10^3/uL (1.8-7.7) 07/31/22 07:58 Lymph # (Auto) 2.2 10^3/uL (0.8-4.8) 07/31/22 07:58 [place] # (Auto) 0.9 10^3/uL (0.2-0.9) 07/31/22 07:58 Eos # (Auto) 0.0 10^3/uL (0.0-0.8) 07/31/22 07:58 Baso # (Auto) 0.0 10^3/uL (0.0-0.1) 07/31/22 07:58 Nucleated RBC % (auto) 0 % 07/31/22 07:58 Nucleated RBCs # 0.0 /100WBC 07/31/22 07:58 Sodium 139 mmol/L (136-145) 07/31/22 07:58 Potassium 4.2 mmol/L (3.5-5.1) 07/31/22 07:58 Chloride 96 mmol/L (98-107) L 07/31/22 07:58 Carbon Dioxide 33 mmol/L (22-29) H 07/31/22 07:58 Anion Gap 14.2 (5-19) 07/31/22 07:58 BUN 53 mg/dL (8-23) H 07/31/22 07:58 Creatinine 1.6 mg/dL (0.5-0.9) H 07/31/22 07:58 GFR Calculation Not Reportable 07/31/22 07:58 Glucose 110 mg/dL (65-115) 07/31/22 07:58 Calculated Osmolality 303 mOsm/kg (285-295) H 07/31/22 07:58 Calcium 9.4 mg/dL (8.5-10.5) 07/31/22 07:58 Total Bilirubin 1.2 mg/dL (0.15-1.2) 07/31/22 07:58 AST 15 U/L (0-32) 07/31/22 07:58 ALT 24 U/L (0-33) 07/31/22 07:58 Alkaline Phosphatase 61 U/L (35-105) 07/31/22 07:58 NT-Pro-B Natriuret Pep 2119 pg/mL (0-450) H 07/31/22 07:58 Total Protein 6.4 g/dL (6.6-8.7) L 07/31/22 07:58 Albumin 3.6 g/dL (3.5-5.2) 07/31/22 07:58 Globulin 2.8 g/dL (1.3-4.6) 07/31/22 07:58 Urine Color Yellow (Yellow) 07/31/22 09:31 Urine Appearance Sl hazy (CLEAR) A 07/31/22 09:31 Urine pH 5 (5-7) 07/31/22 09:31 Ur Specific Jarrell 1.025 (1.005-1.030) 07/31/22 09:31 Urine Protein Neg (Negative) 07/31/22 09:31 Urine Glucose (UA) Norm (Normal) 07/31/22 09:31 Urine Ketones 1+ (Negative) H 07/31/22 09:31 Urine Blood 2+ (Negative) H 07/31/22 09:31 Urine Nitrate Negative (Negative) 07/31/22 09:31 Urine Bilirubin Neg (Negative) 07/31/22 09:31 Urine Urobilinogen Norm mg/dL (Negative) 07/31/22 09:31 Ur Leukocyte Esterase 1+ (Negative) H 07/31/22 09:31 Urine RBC 5-10 /hpf (0-2) H 07/31/22 09:31 Urine WBC 15-25 /hpf (0-5) H 07/31/22 09:31 Ur Squamous Epith Cells 5-10 /hpf (0-5) H 07/31/22 09:31 Amorphous Sediment Not Reportable 07/31/22 09:31 Urine Bacteria 3+ /hpf (NONE) H 07/31/22 09:31 Discharge Plan Discharge Patient Disposition: Home Clinical Impression: Cystitis, Atrial fibrillation with RVR, Lesion of lumbar spine Condition: Stable Prescriptions: New Macrobid 100 mg capsule 100 mg PO BID 7 Days Qty: 14 0RF Rx Instructions: must administer with a meal/food ondansetron HCl 4 mg tablet 4 mg PO Q6H PRN (Reason: nausea and vomiting) Qty: 20 0RF Toprol XL 25 mg tablet extended release 24 hr 25 mg PO DAILY Qty: 30 0RF Discontinued sulfamethoxazole-trimethoprim [Bactrim DS] 800-160 mg tablet 1 tab PO BID 10 Days Qty: 20 0RF doxycycline hyclate 100 mg capsule 100 mg PO BID 14 Days Qty: 28 0RF ciprofloxacin HCl [Cipro] 500 mg tablet 500 mg PO BID Qty: 14 0RF metoprolol tartrate 50 mg tablet 25 mg PO DAILY No Action (DME) Diabetic Shoes Qty: 1 0RF Rx Instructions: As directed levocetirizine 5 mg tablet 5 mg PO DAILY ferrous sulfate [Feosol] 325 mg (65 mg iron) tablet 325 mg PO DAILY furosemide [Lasix] 40 mg tablet 40 mg PO QAM levothyroxine 100 mcg capsule 100 mcg PO DAILY Eliquis 5 mg tablet 5 mg PO BID Hold Instructions: Resume on 01/04/22. S/P CVA. ASA only then add eliquis after 1 -2 weeks esomeprazole magnesium [Nexium] 40 mg capsule,delayed release(DR/EC) 40 mg PO DAILY potassium chloride 20 mEq packet 20 meq PO DAILY (DME) Arm Supports for walker See Rx Instructions .Route .MEDSUPPLY Qty: 1 0RF Rx Instructions: As directed (DME) Lift Chair See Rx Instructions .Route .MEDSUPPLY Qty: 1 0RF Rx Instructions: As directed (DME) Cam Boot to the left See Rx Instructions .Route .MEDSUPPLY Qty: 1 0RF Rx Instructions: As directed valsartan 160 mg tablet 160 mg PO DAILY Qty: 90 0RF Hold Instructions: Resume on 01/04/22. holding BP meds for permissive hypertension post CVA. Usually hold for 7 days and add gradually. (DME) Incontinent supplies Briefs See Rx Instructions .Route .MEDSUPPLY Qty: 120 12RF Rx Instructions: As directed hydrocodone-acetaminophen 5-325 mg tablet 1 tab PO Q12H PRN (Reason: pain) 30 Days Qty: 60 0RF prednisone 10 mg tablet See Rx Instructions .ROUTE .COMPLEX Qty: 60 0RF Dose Instruction: TAKE 1 TABLET BY MOUTH TWICE DAILY Rx Instructions: TAKE 1 TABLET BY MOUTH TWICE DAILY metformin 500 mg tablet extended release 24 hr 500 mg PO DAILY rosuvastatin 20 mg tablet 20 mg PO DAILY Tylenol Ex Str Rapid Release 500 mg Tablet 500 mg PO BID methenamine hippurate 1 gram tablet 1 g PO BID Discharge Orders: Discharge ED (Routine); Ordered 07/31/22 Ordered By: Giovanni Bower Referrals: Shaan Carty, RUDDY [Primary Care Provider] - Patient Instructions: Opioid Safety, Pain Management Activity Restrictions/Additional Instructions: You were seen today for nausea vomiting and generally not feeling well. On arrival here your heart rate was elevated because of your atrial fibrillation. We gave you medications as well as your regular morning medicine to stop this. Your heart rate improved would recommend that you change from Toprol once daily to Toprol XL 25 mg once daily to for better rate control. You are also found to have a bladder infection. You are given a dose of IV antibiotics start the oral antibiotics tomorrow. You are given some IV fluids as well. Recommend that you follow-up with your doctor within the next 1 week to reevaluate. You are given a prescription for oral antibiotics for your bladder infection to start tomorrow. Recommend that you follow-up with your primary care doctor to evaluate further the abnormal lesions found in your lumbar spine several months ago. Coding Level of Care Code ED Director [facility] for Jus Burns
[2022-07-31 08:13] LABS: Basophils % 0.1 %; Eosinophils % 0.3 %; Hematocrit 46.2 % (37.0-47.0); Hemoglobin 14.5 g/dL (11.5-15.3); Lymphocytes # 2.2 10^3/uL (0.8-4.8); Lymphocytes % 21.7 %; Mean Corpuscular HGB Conc 31.4 g/dL (30.0-36.0); Mean Corpuscular Hemoglobin 31.3 pg (28.0-34.0); Mean Corpuscular Volume 99.6 fl (81-99); Mean Platelet Volume 10.9 fL (7.4-10.4); Monocytes # 0.9 10^3/uL (0.2-0.9); Neutrophils # 6.93 10^3/uL (1.8-7.7); Neutrophils % 68.4 %; Nucleated Red Blood Cells % 0 %; Platelet Count 224 10^3/cmm (130-400); Red Blood Count 4.64 10^6/uL (4.1-5.3); Red Cell Distribution Width 18.5 % (12.1-15.1); White Blood Count 10.1 10^3/uL (4.0-10.0)
[2022-07-31] MEDS: metoprolol tartrate 25 mg Tablet PO (08:25)
[2022-07-31] MEDS: dilTIAZem 100 MG in sodium chloride 0.9% (add-van) 100 ML IV (08:26)
[2022-07-31] MEDS: dilTIAZem 5 mg/mL SDV 5 mL 10 MG IVP (08:26)
[2022-07-31 08:30] LABS: Alanine Aminotransferase 24 U/L (0-33); Albumin Level 3.6 g/dL (3.5-5.2); Alkaline Phosphatase 61 U/L (35-105); Anion Gap 14.2 (5-19); Aspartate Amino Transferase 15 U/L (0-32); Blood Urea Nitrogen 53 mg/dL (8-23); Calcium 9.4 mg/dL (8.5-10.5); Carbon Dioxide 33 mmol/L (22-29); Chloride 96 mmol/L (98-107); Globulin 2.8 g/dL (1.3-4.6); Glucose 110 mg/dL (65-115); Osmolality Calculated 303 mOsm/kg (285-295); Potassium 4.2 mmol/L (3.5-5.1); Sodium 139 mmol/L (136-145); Total Bilirubin 1.2 mg/dL (0.15-1.2); Total Protein 6.4 g/dL (6.6-8.7)
[2022-07-31 08:39] LABS: NT Pro B Type Natriuretic Pept 2119 pg/mL (0-450)
[2022-07-31] MEDS: sodium chloride 0.9% 500 ML IV (09:15)
[2022-07-31 09:58] LABS: Specific Gravity, Urine 1.025 (1.005-1.030); Urine Appearance SL Hazy (CLEAR); Urine Color Yellow (Yellow); pH Urine 5 (5-7)
[2022-07-31 09:59] LABS: Add Urine Culture? Yes; Add Urine Microscopic? YES; Bacteria Urine 3+ /hpf; Bilirubin Urine Neg (Negative); Blood Urine 2+ (Negative); Glucose Urine UA Norm (Normal); Ketones Urine 1+ (Negative); Leukocyte Esterase Urine 1+ (Negative); Nitrate Urine Negative (Negative); Protein Urine Neg (Negative); Urobilinogen Urine Norm (Negative); WBC Urine 15-25 /hpf (0-5)
[2022-07-31] MEDS: ciprofloxacin 400 MG/200 ML PREMIX 200 MG IV (12:04)
== END 2022-07-31 13:50 | disposition home or self-care (01) ==
PROVIDERS: Emergency Provider Family Medicine; PCP Registered Nurse
DX: N30.90 Cystitis, unspecified without hematuria (principal); I48.20 Chronic atrial fibrillation, unspecified; M89.9 Disorder of bone, unspecified; Z79.84 Long term (current) use of oral hypoglycemic drugs; Z86.73 Personal history of transient ischemic attack (TIA), and cerebral infarction without residual deficits; I13.0 Hypertensive heart and chronic kidney disease with heart failure and stage 1 through stage 4 chronic kidney disease, or unspecified chronic kidney disease; E11.22 Type 2 diabetes mellitus with diabetic chronic kidney disease; N18.9 Chronic kidney disease, unspecified; I50.9 Heart failure, unspecified; E78.5 Hyperlipidemia, unspecified
CPT/HCPCS: 71045; 80053; 81001; 83880; 85025; 87077; 87086; 87186; 93005; 96365; 96375; 99285; J0744; J3490; J7040

== ENCOUNTER 2022-08-03 08:19 | Inpatient (IN) | payer MEDICARE, MEDICAID, SELFPAY ==
[2022-08-03] VITALS (30 sets, daily range): BP systolic 86–124; BP diastolic 34–83; PULSE 93–136; RESP 13–34; TEMP 36.6–37.1; O2SAT 86–100; BMI 36.6
--- NOTE | 2022-08-03 08:37 | XR_ITS ---
WS: [id number] EXAMINATION: XR chest 1V portable [id number] REASON FOR EXAM: sob COMPARISON: 07/31/2022 ORDER DATE: 08/03/2022 8:40 AM TECHNIQUE: A single, portable frontal chest x-ray was obtained. X-RAY FINDINGS: The lungs are clear. There is minor biapical pleural thickening. No pleural effusions or pneumothorax. Cardiomegaly with atherosclerotic aortic change. No evidence for pulmonary edema. Soft tissue and osseous structures are unremarkable. No tubes or lines are present. XR/XR chest 1V portable [id number] IMPRESSION: No acute pulmonary change
--- NOTE | 2022-08-03 08:43 | ECG_ITS ---
[facility] Test Date: 2022-08-03 Pat Name: Evelia Denton Department: Room: Gender: Female Analytics Associate: : 1935 Requested By: Cali Leach Order Number: [id number] Shereen MD: Maribel Figueroa M.D. Measurements Intervals [place] Rate: 120 P: 0 CO: 0 QRS: 211 QRSD: 107 T: -12 QT: 285 QTc: 403 Interpretive Statements ATRIAL FIBRILLATION WITH RAPID VENTRICULAR RESPONSE LOW QRS VOLTAGE IN PRECORDIAL LEADS [QRS DEFLECTION < 1.0 mV IN CHEST LEADS] INCOMPLETE RIGHT BUNDLE BRANCH BLOCK [90+ ms QRS DURATION, TERMINAL R IN V1/V2, 40+ ms S IN I/aVL/V4/V5/V6] ANTEROLATERAL MYOCARDIAL INFARCTION , PROBABLY RECENT [40+ ms Q WAVE IN I/aVL/V3-V6] ACUTE ID Compared to ECG 07/31/2022 08:03:38 Myocardial infarct finding now present ST (T wave) deviation no longer present Electronically Signed On 08-03-2022 22:48:34 CDT by Maribel Figueroa M.D. [id number]
[2022-08-03] MEDS: dilTIAZem 5 mg/mL SDV 5 mL 10 MG IVP ×2 (08:57→10:51)
[2022-08-03] MEDS: acetaminophen 500 mg Tablet PO (08:58)
[2022-08-03] MEDS: sodium chloride 0.9% 500 ML 999 ML IV (08:59)
[2022-08-03 09:07] LABS: ABG PCO2 44.3 mmHg (35-45); ABG PH Result 7.45 (7.35-7.45); Arterial Blood Gas Hematocrit 42.6 % (37-47); Base Excess ABG 6.2 mmol/L (-2.0-2.0); Blood Gas Operator Identificat AMH; Blood Gas Sample Site Brachial, left; Blood Gas Sample Type Arterial; Carboxyhemoglobin 0.4 %THgb (0.4-20.1); HGB O2 Sat 95.8 % (95-100); Methemoglobin 0.7 % (0.4-1.5); Oxygen Device NC; PO2 ABG 94.3 mmHg (80.0-100.0); Total Hemoglobin 13.9 g/dL (12-16)
[2022-08-03 09:31] LABS: Basophils % 0.1 %; Eosinophils % 0.1 %; Hematocrit 42.3 % (37.0-47.0); Hemoglobin 13.7 g/dL (11.5-15.3); Lymphocytes # 1.5 10^3/uL (0.8-4.8); Lymphocytes % 12.6 %; Mean Corpuscular HGB Conc 32.4 g/dL (30.0-36.0); Mean Corpuscular Hemoglobin 32.9 pg (28.0-34.0); Mean Corpuscular Volume 101.4 fl (81-99); Mean Platelet Volume 10.9 fL (7.4-10.4); Monocytes # 0.9 10^3/uL (0.2-0.9); Monocytes % 7.3 %; Neutrophils # 9.61 10^3/uL (1.8-7.7); Neutrophils % 79.2 %; Nucleated Red Blood Cells % 0 %; Platelet Count 202 10^3/cmm (130-400); Red Blood Count 4.17 10^6/uL (4.1-5.3); Red Cell Distribution Width 18.1 % (12.1-15.1); White Blood Count 12.1 10^3/uL (4.0-10.0)
--- NOTE | 2022-08-03 09:35 | PC.NURSE ---
PT PLACED ON CONTINUOUS NIBP, SPO2, AND CM
--- NOTE | 2022-08-03 09:39 | W.ED.SOB ---
HPI - SOB/Dyspnea General: Chief Complaint: Shortness of Breath/Dyspnea Stated Complaint: n/ diff breathing Time Seen by Provider: 08/03/22 08:29 History of Present Illness: HPI Narrative: Patient comes in with shortness of breath, and dyspnea on exertion. States that she was seen here recently for similar symptoms and treated for A-fib with RVR. States that for the past few days she has been more short of breath and weak. States she is having trouble getting up and getting around. She denies any chest pain, but states that she just all over does not feel well. Denies fever, or productive cough. Associated symptoms: Reports nausea and palpitations; Deny abdominal pain, chest pain, fever(s), polyuria or vomiting Review of Systems Const: Reports: body aches; Denies: fever(s) Eyes: Denies: change in vision or blurry vision ENMT: Denies: throat pain or odynophagia Card: Reports: palpitations; Denies: chest pain Resp: Reports: dyspnea; Denies: productive cough GI: Reports: nausea; Denies: abdominal pain or vomiting : Denies: flank pain or dysuria Musc: Denies: neck pain or back pain Skin/Breast: Denies: rash or pruritus Neuro: Reports: headache(s); Denies: numbness in extremities Psych: Denies: anxiety or change in appetite Endo: Denies: polyuria or excessive sweating PFSH ED PFSH: Medical History Actinic keratosis left forearm, removed Anemia At high risk for falls Atrial fibrillation with RVR Basal cell carcinoma left earlobe, removed Cerebrovascular accident with involvement of left side of body CHF (congestive heart failure) Chronic a-fib Chronic anticoagulation Eliquis, for chronic afib Chronic cystitis CKD (chronic kidney disease) COVID-19 (~07/2020) Diabetes Dyslipidemia Feeling of incomplete bladder emptying Glucose intolerance prediabetes, on metformin Hypertension Hypothyroidism Incontinent of urine Left shoulder pain Osteoarthritis of left shoulder Surgical History H/O bilateral oophorectomy History of back surgery lumbar Hx of cholecystectomy several complications requiring additional procedures post op Hx of total knee replacement Family History Father , at age 79 Diabetes Daughter Stroke Family/Other Stroke Aunt Social History Smoking and tobacco status: never smoked Alcohol intake: never Adopted: No Lives independently: Yes Housing: House Current occupational status: retired Female Reproductive History: Para: 6 Spontaneous abortions: Yes (1) Physical Exam Const: COMMON NORMALS: no acute distress, patient oriented x3 and alert HENMT: COMMON NORMALS: normocephalic and atraumatic HEAD & SCALP: normocephalic and atraumatic Eye: COMMON NORMALS: Equal, round and reactive pupils present and EOMs intact bilaterally PUPIL: Yes Equal, round and reactive pupils present Neck/C-Spine: COMMON NORMALS: full ROM and supple Resp: COMMON NORMALS: normal respiratory effort, No retractions and No use of accessory muscles Cardio: OTHER: Tachycardia with an irregularly irregular rhythm GI: COMMON NORMALS: Normal to inspection, nondistended, normoactive bowel sounds present, Soft to palpation and non-tender PALPATION: Yes Soft to palpation Back/Pelvis: COMMON NORMALS: thoracic and lumbar spine normal to inspection and no thoracic nor lumbar tenderness Extremity: COMMON NORMALS: normal to inspection and full ROM Neuro: COMMON NORMALS: patient oriented x3 SENSORIUM/ORIENTATION: Yes alert Psych: COMMON NORMALS: mental status grossly normal and cooperative Skin: COMMON NORMALS: no rashes or lesions noted and no wounds GENERAL SKIN EXAM: no rashes or lesions noted Course Vital Signs: Vital signs: Vital Signs Temperature 98.7 F 08/03/22 08:21 Pulse Rate 109 H 08/03/22 10:15 Respiratory Rate 19 H 08/03/22 10:15 Blood Pressure 99/53 08/03/22 10:15 Pulse Oximetry 100 08/03/22 10:15 Oxygen Delivery Me thod 08/03/22 10:15 Oxygen Flow Rate 2 08/03/22 10:15 MDM - SOB/Dyspnea Medical Decision Making Patient comes in with shortness of breath, and dyspnea on exertion. States that she was seen here recently for similar symptoms and treated for A-fib with RVR. States that for the past few days she has been more short of breath and weak. States she is having trouble getting up and getting around. She denies any chest pain, but states that she just all over does not feel well. Denies fever, or productive cough. On arrival the patient is tachycardic with an irregularly irregular rhythm. Stat EKG shows ST changes in lead I and aVL as well as lateral leads with Q waves in inferior leads. I consulted cardiology and he agrees that this could be related to the heart, but is not a STEMI. Will treat her heart rate, check labs including troponin level, x-ray, and reassess. On reassessment I talked with the patient about the test results. Her heart rate came down into the 90s long enough for us to repeat the EKG. Her repeat EKG showed no ST elevations or other concerning signs for acute ischemia. Her initial troponin was slightly elevated at 32. She then went back into rapid ventricular response. We gave her another bolus of diltiazem without improvement and started on a diltiazem drip. I discussed the case with the hospitalist, and we will admit for further work-up and treatment. Lab Data 08/03/22 09:20 08/03/22 09:20 Labs/Radiology: Radiology Impressions Chest X-Ray 08/03/22 08:37 IMPRESSION: No acute pulmonary change Laboratory Results WBC 12.1 10^3/uL (4.0-10.0) H 08/03/22 09:20 RBC 4.17 10^6/uL (4.1-5.3) 08/03/22 09:20 Hgb 13.7 g/dL (11.5-15.3) 08/03/22 09:20 Hct 42.3 % (37.0-47.0) 08/03/22 09:20 MCV 101.4 fl (81-99) H 08/03/22 09:20 MCH 32.9 pg (28.0-34.0) 08/03/22 09:20 MCHC 32.4 g/dL (30.0-36.0) 08/03/22 09:20 RDW 18.1 % (12.1-15.1) H 08/03/22 09:20 Plt Count 202 10^3/cmm (130-400) 08/03/22 09:20 MPV 10.9 fL (7.4-10.4) H 08/03/22 09:20 Neut % (Auto) 79.2 % 08/03/22 09:20 Lymph % (Auto) 12.6 % 08/03/22 09:20 [place] % (Auto) 7.3 % 08/03/22 09:20 Eos % (Auto) 0.1 % 08/03/22 09:20 Baso % (Auto) 0.1 % 08/03/22 09:20 Neut # (Auto) 9.61 10^3/uL (1.8-7.7) H 08/03/22 09:20 Lymph # (Auto) 1.5 10^3/uL (0.8-4.8) 08/03/22 09:20 [place] # (Auto) 0.9 10^3/uL (0.2-0.9) 08/03/22 09:20 Eos # (Auto) 0.0 10^3/uL (0.0-0.8) 08/03/22 09:20 Baso # (Auto) 0.0 10^3/uL (0.0-0.1) 08/03/22 09:20 Nucleated RBC % (auto) 0 % 08/03/22 09:20 Nucleated RBCs # 0.0 /100WBC 08/03/22 09:20 Specimen Type Arterial 08/03/22 08:55 Sample Site Brachial, left 08/03/22 08:55 ABG pH 7.45 (7.35-7.45) 08/03/22 08:55 ABG pCO2 44.3 mmHg (35-45) 08/03/22 08:55 ABG pO2 94.3 mmHg (80.0-100.0) 08/03/22 08:55 ABG HCO3 31.0 mmol/L (22-26) H 08/03/22 08:55 ABG Base Excess 6.2 mmol/L (-2.0-2.0) H 08/03/22 08:55 Daniele Test N/a 08/03/22 08:55 Hematocrit 42.6 % (37-47) 08/03/22 08:55 Hgb O2 Saturation 95.8 % (95-100) 08/03/22 08:55 Carboxyhemoglobin 0.4 %THgb (0.4-20.1) 08/03/22 08:55 Methemoglobin 0.7 % (0.4-1.5) 08/03/22 08:55 Total Hemoglobin 13.9 g/dL (12-16) 08/03/22 08:55 O2 Delivery Device Nc 08/03/22 08:55 O2 Liters/Min 1.0 % 08/03/22 08:55 FiO2 24.0 % 08/03/22 08:55 Wildlife Biology Technician ID Amh 08/03/22 08:55 Sodium 141 mmol/L (136-145) 08/03/22 09:20 Potassium 4.2 mmol/L (3.5-5.1) 08/03/22 09:20 Chloride 99 mmol/L (98-107) 08/03/22 09:20 Carbon Dioxide 30 mmol/L (22-29) H 08/03/22 09:20 Anion Gap 16.2 (5-19) 08/03/22 09:20 BUN 46 mg/dL (8-23) H 08/03/22 09:20 Creatinine 1.7 mg/dL (0.5-0.9) H 08/03/22 09:20 GFR Calculation Not Reportable 08/03/22 09:20 Glucose 121 mg/dL (65-115) H 08/03/22 09:20 Calculated Osmolality 305 mOsm/kg (285-295) H 08/03/22 09:20 Calcium 8.2 mg/dL (8.5-10.5) L 08/03/22 09:20 Total Bilirubin 0.8 mg/dL (0.15-1.2) 08/03/22 09:20 AST 13 U/L (0-32) 08/03/22 09:20 ALT 20 U/L (0-33) 08/03/22 09:20 Alkaline Phosphatase 54 U/L (35-105) 08/03/22 09:20 Troponin T Baseline 32 ng/L (0-10) H 08/03/22 09:20 NT-Pro-B Natriuret Pep 1353 pg/mL (0-450) H 08/03/22 09:20 Total Protein 5.2 g/dL (6.6-8.7) L 08/03/22 09:20 Albumin 2.9 g/dL (3.5-5.2) L 08/03/22 09:20 Globulin 2.3 g/dL (1.3-4.6) 08/03/22 09:20 Influenza Type A Ag negative (Negative) 08/03/22 09:20 Influenza Type B Ag negative (Negative) 08/03/22 09:20 Discharge Plan Discharge Patient Disposition: Admitted As Inpatient Clinical Impression: Atrial fibrillation with RVR Condition: Stable Coding Level of Care Code ED [facility] for Jus Burns
--- NOTE | 2022-08-03 09:47 | PC.PHAR ---
Addendum entered by Elvia Zavala 08/03/22 09:50: pts daughter states the er dr from 07/31/22 put the pts metformin er 500mg on hold Original Note: pts daughter raymon [phone] verified pts medications-states the pt had build up on some of her medications since she was in the intermediate for 3 months-pts daughter states the pt has amlodipine 5mg daily filled 08/01/22 90d/s but states she is unsure if the pt is taking-notes are made in the pharmacy comments
[2022-08-03 09:48] LABS: Influenza A by IFA negative (Negative); Influenza B by IFA negative (Negative)
--- NOTE | 2022-08-03 09:54 | ECG_ITS ---
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 Measurements Intervals [place] Rate: 104 P: 0 ME: 0 QRS: -21 QRSD: 98 T: 132 QT: 348 QTc: 458 Interpretive Statements ATRIAL FIBRILLATION WITH RAPID VENTRICULAR RESPONSE LOW QRS VOLTAGE IN PRECORDIAL LEADS [QRS DEFLECTION < 1.0 mV IN CHEST LEADS] POSSIBLE ANTERIOR MYOCARDIAL INFARCTION , PROBABLY OLD [30 ms Q WAVE IN V3/V4, OR R < 0.2 mV IN V4] ABNORMAL RHYTHM ECG Compared to ECG 08/03/2022 08:43:57 Incomplete right bundle-branch block no longer present Myocardial infarct finding still present Electronically Signed On 08-03-2022 22:48:47 CDT by Maribel Figueroa M.D. [id number]
[2022-08-03 09:59] LABS: Alanine Aminotransferase 20 U/L (0-33); Albumin Level 2.9 g/dL (3.5-5.2); Alkaline Phosphatase 54 U/L (35-105); Anion Gap 16.2 (5-19); Aspartate Amino Transferase 13 U/L (0-32); Blood Urea Nitrogen 46 mg/dL (8-23); Calcium 8.2 mg/dL (8.5-10.5); Carbon Dioxide 30 mmol/L (22-29); Chloride 99 mmol/L (98-107); Globulin 2.3 g/dL (1.3-4.6); Glucose 121 mg/dL (65-115); NT Pro B Type Natriuretic Pept 1353 pg/mL (0-450); Osmolality Calculated 305 mOsm/kg (285-295); Potassium 4.2 mmol/L (3.5-5.1); Sodium 141 mmol/L (136-145); Total Bilirubin 0.8 mg/dL (0.15-1.2); Total Protein 5.2 g/dL (6.6-8.7)
[2022-08-03 10:18] LABS: Troponin(5th) Baseline 32 ng/L (0-10)
--- NOTE | 2022-08-03 10:39 | ECG_ITS ---
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 Measurements Intervals [place] Rate: 130 P: 0 IL: 0 QRS: -23 QRSD: 95 T: 209 QT: 284 QTc: 418 Interpretive Statements ATRIAL FIBRILLATION WITH RAPID VENTRICULAR RESPONSE LOW QRS VOLTAGE IN PRECORDIAL LEADS [QRS DEFLECTION < 1.0 mV IN CHEST LEADS] INCOMPLETE RIGHT BUNDLE BRANCH BLOCK [90+ ms QRS DURATION, TERMINAL R IN V1/V2, 40+ ms S IN I/aVL/V4/V5/V6] POSSIBLE ANTERIOR MYOCARDIAL INFARCTION , PROBABLY OLD [30 ms Q WAVE IN V3/V4, OR R < 0.2 mV IN V4] ABNORMAL RHYTHM ECG Compared to ECG 08/03/2022 09:57:09 Incomplete right bundle-branch block now present Myocardial infarct finding still present Electronically Signed On 08-04-2022 23:07:42 CDT by Maribel Figueroa M.D. [id number]
[2022-08-03] MEDS: dilTIAZem 100 MG in sodium chloride 0.9% (add-van) 100 ML IV (10:52)
[2022-08-03 11:10] LABS: Urine Appearance Clear (CLEAR); Urine Color Yellow (Yellow)
[2022-08-03 11:11] LABS: Add Urine Microscopic? YES; Bilirubin Urine Neg (Negative); Blood Urine Neg (Negative); Glucose Urine UA Norm (Normal); Ketones Urine Negative (Negative); Leukocyte Esterase Urine 1+ (Negative); Nitrate Urine Negative (Negative); Protein Urine Neg (Negative); Specific Gravity, Urine 1.025 (1.005-1.030); Urobilinogen Urine Norm (Negative); pH Urine 5 (5-7)
[2022-08-03 11:11] LABS: Adenovirus Not Detected (NOT DETECT); Chlamydia Pneumoniae Not Detected (NOT DETECT); Coronavirus 229E,HKU1,NL63,OC4 Not Detected (NOT DETECT); Human Metapneumovirus Not Detected (NOT DETECT); Human Rhinovirus/Enterovirus Not Detected (NOT DETECT); Influenza A Not Detected (NOT DETECT); Influenza A H1 Not Detected (NOT DETECT); Influenza A H1-2009 Not Detected (NOT DETECT); Influenza A H3 Not Detected (NOT DETECT); Influenza B Not Detected (NOT DETECT); Mycoplasma Pneumoniae Not Detected (NOT DETECT); Parainfluenza Virus Type 1 Not Detected (NOT DETECT); Parainfluenza Virus Type 2 Not Detected (NOT DETECT); Parainfluenza Virus Type 3 Not Detected (NOT DETECT); Parainfluenza Virus Type 4 Not Detected (NOT DETECT); Respiratory Syncytial Virus A Not Detected (NOT DETECT); Respiratory Syncytial Virus B Not Detected (NOT DETECT); SARS-COV-2 Not Detected (NOT DETECT)
[2022-08-03 11:24] LABS: Add Urine Culture? Yes
[2022-08-03 12:26] LABS: Troponin 5 2HR 36.08 ng/L (0-10); Troponin 5 2HR Delta 4.08 ABS# (0-10)
[2022-08-03 12:42] LABS: Magnesium 1.6 mg/dL (1.7-2.3); Thyroid Stimulating Hormone 0.42 uIU/mL (0.27-4.20); Vitamin B12 312 pg/mL (232-1245)
--- NOTE | 2022-08-03 12:49 | PM.HP ---
Providers/Chief Complaint Admitting Physician: Arvind Noe MD Primary Care Provider: RUDDY Varma Chief Complaint: n/ diff breathing History of Present Illness Evelia Denton is a 87 year old female presenting to the emergency department with 1 week history of shortness of breath, vomiting, weakness, and some global pain. She denies any fevers. She reports several bowel movements ago she had some blood streaking in the stool. When asked about her medication she states she cannot remember all of them, and that her daughter does them. She denies any chest discomfort. She reports no palpitations. In the emergency department, there was some concern with her original EKG so it was sent to cardiology by the emergency department. With improvement of her rate, her EKG pattern improved. She was placed on Cardizem drip, and is currently at 5 mg/h with a heart rate of around 100. Review of Systems General: Reports: 10 or more systems reviewed and unremarkable except in HPI and below Const: Reports: fatigue and malaise; Denies: fever(s) or chills ENMT: Denies: throat pain Resp: Denies: dyspnea GI: Reports: nausea, vomiting and hematochezia; Denies: abdominal pain or melena : Denies: flank pain Musc: Denies: neck pain Medications/Allergies Home Medications Medication Instructions Recorded Confirmed Last Taken Type apixaban 5 mg tablet (Eliquis) 5 mg PO BID 06/02/19 08/03/22 08/02/22 History esomeprazole magnesium 40 mg 40 mg PO QAM 06/02/19 08/03/22 1 Week Ago History capsule,delayed release (Nexium) ~07/27/22 out for a week furosemide 40 mg tablet (Lasix) 40 mg PO QAM 06/02/19 08/03/22 08/02/22 History Diabetic Shoes #1 ea 06/09/19 08/03/22 Unknown Rx ferrous sulfate 325 mg (65 mg 325 mg PO BEDTIME 11/10/19 08/03/22 1 Week Ago History iron) tablet (Feosol) ~07/27/22 out for a week levocetirizine 5 mg tablet 5 mg PO BEDTIME 11/10/19 08/03/22 08/02/22 History Incontinent supplies #120 ea 08/23/20 08/03/22 Unknown Rx metformin 500 mg tablet,extended 500 mg PO DAILY 12/27/21 08/03/22 04/24/22 History release 24 hr Arm Supports for walker #1 ea 03/02/22 08/03/22 Unknown Rx Lift Chair #1 ea 03/02/22 08/03/22 Unknown Rx rosuvastatin 20 mg tablet 20 mg PO BEDTIME 03/04/22 08/03/22 08/02/22 History Cam Boot to the left #1 ea 06/19/22 08/03/22 Unknown Rx prednisone 10 mg tablet See Rx Instructions .Route 07/06/22 08/03/22 08/02/22 Rx .COMPLEX #60 tabs nitrofurantoin 100 mg PO BID 7 days #14 caps 07/31/22 08/03/22 08/02/22 Rx monohydrate/macrocrystals 100 mg rx filled capsule (Macrobid) 07/31/22 7d ondansetron HCl 4 mg tablet 4 mg PO Q6H PRN nausea and 07/31/22 08/03/22 Unknown Rx vomiting #20 tabs amlodipine 5 mg tablet 5 mg PO DAILY 08/03/22 08/03/22 Unknown History hydrocodone 5 mg-acetaminophen 325 1 tab PO Q12H 08/03/22 08/03/22 08/02/22 History mg tablet levothyroxine 100 mcg tablet 100 mcg PO QAM 08/03/22 08/03/22 08/02/22 History metoprolol succinate 25 mg 25 mg PO QAM 08/03/22 08/03/22 08/02/22 History tablet,extended release 24 hr just started (Toprol XL) 07/31/22 potassium chloride 20 mEq 20 meq PO QAM 08/03/22 08/03/22 08/02/22 History tablet,extended release(part/cryst) valsartan 160 mg tablet 160 mg PO QAM 08/03/22 08/03/22 08/02/22 History Allergies Allergy/AdvReac Type Severity Reaction Status Date / Time cephalexin [From Keflex] Allergy ALGY-Rash Verified 08/03/22 09:30 Iodinated Contrast Media Allergy ALGY-Swell Verified 08/03/22 09:30 Lip/Tongue/Throat Penicillins Allergy ALGY-Rash Verified 08/03/22 09:30 PFSH Acute PFSH: Medical History Actinic keratosis left forearm, removed Anemia At high risk for falls Atrial fibrillation with RVR Basal cell carcinoma left earlobe, removed Cerebrovascular accident with involvement of left side of body CHF (congestive heart failure) Chronic a-fib Chronic anticoagulation Eliquis, for chronic afib Chronic cystitis CKD (chronic kidney disease) COVID-19 (~07/2020) Diabetes Dyslipidemia Feeling of incomplete bladder emptying Glucose intolerance prediabetes, on metformin Hypertension Hypothyroidism Incontinent of urine Left shoulder pain Osteoarthritis of left shoulder Surgical History H/O bilateral oophorectomy History of back surgery lumbar Hx of cholecystectomy several complications requiring additional procedures post op Hx of total knee replacement Family History Father , at age 79 Diabetes Daughter Stroke Family/Other Stroke Aunt Social History Smoking and tobacco status: never smoked Alcohol intake: never Adopted: No Lives independently: Yes Housing: House Current occupational status: retired Female Reproductive History: Para: 6 Spontaneous abortions: Yes (1) Vitals/I&O/Wt Last Vital Signs Temp 98.7 F 08/03/22 08:21 Pulse 97 08/03/22 12:30 Resp 19 H 08/03/22 12:00 BP 91/54 08/03/22 12:00 Pulse Ox 99 08/03/22 12:30 O2 Del Method 08/03/22 10:15 O2 Flow Rate 2 08/03/22 10:15 08/02/22 08/03/22 08/03/22 22:59 06:59 14:59 Intake Total 500 / 500 Balance 500 / 500 Weight last 48 hrs Weight 90.718 kg Physical Exam Narrative: General exam is white female, no distress, conversant and alert. Currently on 2 L of oxygen which is her baseline. Telemetry demonstrates atrial fibrillation, rate around 105 while I am examining her. HEENT: Atraumatic normocephalic. Oropharynx clear. Neck is supple no lymphadenopathy thyromegaly Cardiovascular irregular irregular with accelerated rate. I do not hear a murmur currently. Chest few crackles at the bases Abdomen is soft nontender positive bowel sounds. No obvious organomegaly exams deferred Extremities no cyanosis clubbing or edema, cap refill brisk Skin no rash Neuro no obvious focal deficits. Data 08/03/22 09:20 08/03/22 09:20 Other Labs: ABG demonstrates pH 7.45, PCO2 44, PO2 of 94 on 1 L Magnesium 1.6 Calcium 8.2 Troponin 32 with repeat of 36 LFTs normal Albumin 2.9 TSH 0.42 which I ordered B12 312 which I ordered Urinalysis 5-10 white cells, 1+ leukocyte Estrace COVID PCR negative, influenza negative EKG demonstrates a rate of around 120. Right axis deviation. Incomplete right bundle branch block is noted. Slight amount of ST upslope was noted in aVL and 1, that since resolved after controlling rate. This was reviewed with cardiology per the emergency department physician. Chest x-ray by my read no infiltrate. Previous echocardiogram December 2021 demonstrated an EF of 55 to 60%, moderate to severe tricuspid regurgitation and severe pulmonary hypertension. A&P Assessment and plan (1) Atrial fibrillation with RVR: Patient presents with atrial fibrillation rapid ventricular rate She has been placed on a Cardizem drip and has fair control of heart rate currently. Blood pressure is drifted down slightly. Continue full anticoagulation with Eliquis She has had a relatively recent echocardiogram. Will hold off on repeating for now Initiate oral medication for atrial fibrillation likely tonight. It appears she is on just metoprolol at home (2) Cystitis: Patient with history of cystitis, Klebsiella, recently diagnosed in the ER and intermediate sensitivity to Macrobid which she was placed on Initiate Cipro as she has reported some vomiting recently. Transition to oral as tolerated. She is allergic to penicillin and cephalosporin (3) Acute kidney injury: Patient has acute kidney injury, superimposed on chronic kidney disease Renal ultrasound Close follow-up with BMP tomorrow (4) Macrocytosis: B12 checked and normal Plan Lesion second lumbar vertebrae. She has decided not to work this up at this time. See documentation on clinic visits. This possibly represented a malignancy. Underlying history of severe pulmonary hypertension. History of hypertension. Holding other antihypertensives currently, as we will need to make adjustments in medication to control rate of atrial fibrillation. History of CVA Multiple other medical problems as outlined in past medical history She wants full code currently Eliquis will suffice for DVT prophylaxis Attestations Medical Necessity Statement*: Will require greater than 2 midnight stay for evaluation and treatment of atrial fibrillation with rapid ventricular rate as well as acute kidney injury. Diagnoses Atrial fibrillation with RVR I48.91 Cystitis N30.90 Acute kidney injury N17.9 Macrocytosis D75.89 Time Spent (min) 46
--- NOTE | 2022-08-03 13:06 | PC.NURSE ---
DR. DIEZ DENIED REQUEST FOR BLOOD CULTURES PRIOR TO ADMINISTRATION OF ANTIBIOTICS
--- NOTE | 2022-08-03 13:12 | USR_ITS ---
PROCEDURE INFORMATION: Exam: US Retroperitoneal Complete, Kidneys Aorta IVC. Exam date and time: 08/03/2022 2:34 PM Age: 87 years old Clinical indication: Abnormal findings; Abnormal lab test; Other: Brayan; Additional info: Renal failure TECHNIQUE: Imaging protocol: Real-time ultrasound of the retroperitoneum with image documentation. Complete exam. COMPARISON: US abdomen limited [id number] 07/06/2017 1:32 PM FINDINGS: Right kidney is unremarkable in overall size measuring 10.5 x 4.7 x 5.0 cm. Mild thinning of renal cortex secondary to cortical atrophy. No calculi hydronephrosis. Multiple right renal cysts largest of which arises from the midpole measures 6 x 5 cm containing internal thick septation, indeterminate. Left kidney is unremarkable in overall size measuring 10.4 x 4.6 x 5.6 cm. Mild thinning of renal cortex. Multiple relatively simple cortical cysts measuring up to 6.2 x 6.0 cm. US/US renal BI* [id number] IMPRESSION: 1. Multiple bilateral renal cysts measuring up to 6 cm 1 of which arising midpole right kidney contains internal thickened septation, indeterminate. Recommend a follow-up renal ultrasound exam in 6 months for continued surveillance. 2. Negative for hydronephrosis.
[2022-08-03] MEDS: ciprofloxacin 200 MG/100 ML PREMIX 100 MG IV (13:23)
--- NOTE | 2022-08-03 14:31 | PC.NURSE ---
PRIOR TO XFER PT LEFT AC IV APPEARED RED, SWOLLEN, AND WARM TO TOUCH. IV DC'D. PRESSURE DRESSING AND COOL COMPRESS WITH SKIN BARRIER APPLIED TO SITE. RECEIVING NURSE NOTIFIED.
--- NOTE | 2022-08-03 15:54 | PC.NURSE ---
pt came from ER w/ IV on left ac got infiltrated with cipro iv running. iv antiobiotic on hold. new iv attempts unsuccessful. notified house sup and er to start an IVAN guide IV.
[2022-08-03] MEDS: apixaban 5 mg Tablet PO (17:14)
[2022-08-03] MEDS: predniSONE 5 mg Tablet PO (17:15)
[2022-08-03] MEDS: magnesium sulfate premix 2 GM/50 ML PIGGYBACK IV (17:15)
[2022-08-03 17:21] LABS: Glucose Point of Care 129 mg/dL (70-110)
[2022-08-03] MEDS: ondansetron 2 mg/ML SDV 2 mL 4 MG IVP (18:49)
[2022-08-03 21:36] LABS: Glucose Point of Care 143 mg/dL (70-110)
[2022-08-03] MEDS: HYDROcodone-acetaminophen 5-325 mg Tablet 1 TAB PO (22:42)
[2022-08-03] MEDS: atorvastatin 40 mg Tablet 80 MG PO (22:42)
[2022-08-03] MEDS: dilTIAZem 100 MG in sodium chloride 0.9% (add-van) 100 ML 10 MG IV (22:42)
[2022-08-04] VITALS (49 sets, daily range): BP systolic 74–126; BP diastolic 36–81; PULSE 78–120; RESP 10–36; TEMP 36.4–36.7; O2SAT 84–100
[2022-08-04] MEDS: ciprofloxacin 200 MG/100 ML PREMIX 100 MG IV ×2 (00:44→12:16)
[2022-08-04] MEDS: trazodone 50 mg Tablet 25 MG PO (00:44)
[2022-08-04 05:37] LABS: Basophils % 0.2 %; Eosinophils # 0.1 10^3/uL (0.0-0.8); Eosinophils % 0.6 %; Hematocrit 39.1 % (37.0-47.0); Hemoglobin 12.3 g/dL (11.5-15.3); Lymphocytes # 1.3 10^3/uL (0.8-4.8); Lymphocytes % 15.5 %; Mean Corpuscular HGB Conc 31.5 g/dL (30.0-36.0); Mean Corpuscular Hemoglobin 32.1 pg (28.0-34.0); Mean Corpuscular Volume 102.1 fl (81-99); Monocytes # 0.8 10^3/uL (0.2-0.9); Monocytes % 9.4 %; Neutrophils # 5.98 10^3/uL (1.8-7.7); Neutrophils % 73.7 %; Nucleated Red Blood Cells % 0 %; Platelet Count 170 10^3/cmm (130-400); Red Blood Count 3.83 10^6/uL (4.1-5.3); White Blood Count 8.1 10^3/uL (4.0-10.0)
[2022-08-04 05:51] LABS: Alanine Aminotransferase 18 U/L (0-33); Albumin Level 2.5 g/dL (3.5-5.2); Alkaline Phosphatase 51 U/L (35-105); Aspartate Amino Transferase 14 U/L (0-32); Blood Urea Nitrogen 50 mg/dL (8-23); Calcium 8.1 mg/dL (8.5-10.5); Carbon Dioxide 31 mmol/L (22-29); Chloride 98 mmol/L (98-107); Globulin 2.1 g/dL (1.3-4.6); Glucose 119 mg/dL (65-115); Magnesium 2.3 mg/dL (1.7-2.3); Osmolality Calculated 298 mOsm/kg (285-295); Sodium 137 mmol/L (136-145); Total Protein 4.6 g/dL (6.6-8.7)
[2022-08-04 06:28] LABS: Glucose Point of Care 110 mg/dL (70-110)
[2022-08-04] MEDS: levothyroxine 100 mcg Tablet PO (06:34)
[2022-08-04 08:08] LABS: Creatine Phosphokinase 16 U/L (26-192)
--- NOTE | 2022-08-04 08:08 | PM.PN ---
Subjective Subjective: Evelia reports she is doing okay currently. She did have some lower blood pressures last night. She denies any chest pain. She still feels as if she cannot eat, and has some nausea. Denies feeling short of breath, and can lie flat. Medications: Reviewed: Yes Vitals/I&O/Wt Last Vital Signs Temp 97.6 F 08/04/22 05:01 Pulse 103 H 08/04/22 06:22 Resp 18 08/04/22 05:01 BP 101/57 08/04/22 05:01 Pulse Ox 98 08/04/22 05:01 O2 Del Method 08/04/22 04:00 O2 Flow Rate 2 08/04/22 04:00 08/03/22 08/04/22 08/04/22 22:59 06:59 14:59 Intake Total 387.667 / 937.667 691.833 / 1629.500 Output Total 150 / 150 200 / 350 Balance 237.667 / 787.667 491.833 / 1279.500 Weight last 48 hrs Weight 90.718 kg Physical Exam Narrative: General exam is white female, no distress Neck is supple no lymphadenopathy thyromegaly Cardiovascular irregular irregular with accelerated rate. No murmur Lungs clear Abdomen is soft nontender positive bowel sounds. No obvious organomegaly Extremities no cyanosis clubbing or edema, cap refill brisk Skin no rash Data 08/04/22 04:41 08/04/22 04:41 A&P Assessment and plan (1) Atrial fibrillation with RVR: Patient presents with atrial fibrillation rapid ventricular rate She has been placed on a Cardizem drip and has fair control of heart rate currently. Blood pressure is drifted down slightly. She is still on 5 mg/h. Holding all of her routine home blood pressure medication. Hopefully blood pressure will increase where oral Cardizem can be initiated. Continue full anticoagulation with Eliquis She has had a relatively recent echocardiogram. Will hold off on repeating for now (2) Cystitis: Patient with history of cystitis, Klebsiella, recently diagnosed in the ER and intermediate sensitivity to Macrobid which she was placed on Continue Cipro as she has reported some vomiting recently. Transition to oral as tolerated. She is allergic to penicillin and cephalosporin (3) Acute kidney injury: Patient has acute kidney injury, superimposed on chronic kidney disease Renal ultrasound did not show obstruction. Some cystic kidney disease is noted. Renal function is worsened Check CK Fluid bolus, initiate IV fluids Repeat BMP tomorrow (4) Macrocytosis: B12 checked and normal Plan Hypotension. May be secondary to the Cardizem. We will give a bolus of normal saline, and then initiate low rate IV fluids Lesion second lumbar vertebrae. She has decided not to work this up at this time. See documentation on clinic visits. This possibly represented a malignancy. Underlying history of severe pulmonary hypertension. History of hypertension. Holding other antihypertensives currently, as we will need to make adjustments in medication to control rate of atrial fibrillation. She had steroid initiated in the last several months and reports compliance with this according to daughter. If hypotension persists after fluid bolus consider increasing dose. History of CVA Multiple other medical problems as outlined in past medical history She wants full code currently Eliquis will suffice for DVT prophylaxis Attestations Medical Necessity Statement*: Needs continued hospitalization for close follow-up of renal insufficiency, treatment of A-fib with RVR currently still requiring Cardizem drip. Diagnoses Atrial fibrillation with RVR I48.91 Cystitis N30.90 Acute kidney injury N17.9 Macrocytosis D75.89 Time Spent (min) 22
[2022-08-04] MEDS: ondansetron 2 mg/ML SDV 2 mL 4 MG IVP (08:11)
[2022-08-04] MEDS: pantoprazole DR 40 mg Tablet PO (08:11)
[2022-08-04] MEDS: apixaban 5 mg Tablet PO ×2 (08:11→17:34)
[2022-08-04] MEDS: predniSONE 10 mg Tablet PO (08:11)
[2022-08-04] MEDS: sodium chloride 0.9% 500 ML IV (08:20)
[2022-08-04] MEDS: sodium chloride 0.9% 1,000 ML 50 ML IV ×2 (08:21→21:27)
[2022-08-04] MEDS: nystatin cream 30 gm 1 APPLIC TOPICAL ×2 (10:13→17:35)
[2022-08-04] MEDS: HYDROcodone-acetaminophen 5-325 mg Tablet 1 TAB PO (10:16)
[2022-08-04 11:27] LABS: Glucose Point of Care 129 mg/dL (70-110)
[2022-08-04] MEDS: dilTIAZem 30 mg Tablet PO (12:16)
[2022-08-04] MEDS: sodium chloride 0.9% 500 ML 999 ML IV (15:02)
[2022-08-04] MEDS: predniSONE 5 mg Tablet PO (16:43)
[2022-08-04 17:02] LABS: Glucose Point of Care 123 mg/dL (70-110)
[2022-08-04] MEDS: atorvastatin 40 mg Tablet 80 MG PO (20:13)
[2022-08-04 21:00] LABS: Glucose Point of Care 144 mg/dL (70-110)
[2022-08-05] VITALS (28 sets, daily range): BP systolic 97–119; BP diastolic 42–68; PULSE 73–106; RESP 9–24; TEMP 36.6–37.2; O2SAT 87–100
[2022-08-05] MEDS: ciprofloxacin 200 MG/100 ML PREMIX 100 MG IV ×2 (00:41→13:21)
[2022-08-05] MEDS: diphenhydrAMINE 25 mg Capsule PO (01:24)
[2022-08-05 03:34] LABS: Eosinophils % 0.6 %; Hematocrit 31.2 % (37.0-47.0); Hemoglobin 9.9 g/dL (11.5-15.3); Lymphocytes # 0.7 10^3/uL (0.8-4.8); Lymphocytes % 13.3 %; Mean Corpuscular HGB Conc 31.7 g/dL (30.0-36.0); Mean Corpuscular Hemoglobin 32.4 pg (28.0-34.0); Monocytes # 0.4 10^3/uL (0.2-0.9); Neutrophils # 3.75 10^3/uL (1.8-7.7); Neutrophils % 76.5 %; Nucleated Red Blood Cells % 0 %; Platelet Count 122 10^3/cmm (130-400); Red Blood Count 3.06 10^6/uL (4.1-5.3); White Blood Count 4.9 10^3/uL (4.0-10.0)
[2022-08-05] MEDS: HYDROcodone-acetaminophen 5-325 mg Tablet 1 TAB PO (03:43)
[2022-08-05 03:48] LABS: Anion Gap 10.1 (5-19); Blood Urea Nitrogen 39 mg/dL (8-23); Calcium 7.3 mg/dL (8.5-10.5); Carbon Dioxide 25 mmol/L (22-29); Chloride 106 mmol/L (98-107); Glucose 126 mg/dL (65-115); Osmolality Calculated 295 mOsm/kg (285-295); Potassium 4.1 mmol/L (3.5-5.1); Sodium 137 mmol/L (136-145)
[2022-08-05] MEDS: levothyroxine 100 mcg Tablet PO (05:30)
[2022-08-05 06:36] LABS: Glucose Point of Care 97 mg/dL (70-110)
[2022-08-05 08:13] LABS: Glucose Point of Care 94 mg/dL (70-110)
[2022-08-05] MEDS: pantoprazole DR 40 mg Tablet PO (09:50)
[2022-08-05] MEDS: apixaban 5 mg Tablet PO ×2 (09:50→17:23)
[2022-08-05] MEDS: predniSONE 10 mg Tablet PO (09:51)
[2022-08-05 11:05] LABS: Glucose Point of Care 109 mg/dL (70-110)
[2022-08-05] MEDS: predniSONE 5 mg Tablet PO (15:45)
[2022-08-05] MEDS: dilTIAZem 30 mg Tablet PO (16:10)
--- NOTE | 2022-08-05 16:35 | P.PN_ITS ---
Subjective Subjective: PatientHospital course, labs appreciated. Patient is laying comfortably in bed with multiple family members at bedside with heart rate running more than 110s. As per the nurse patient's heart rate does go up to 120s on getting out of bed to the commode but settles down to high 90s on resting. Patient is on 2 L of oxygen supplementation saturating more than 90%. Is awake and alert and able to have complete conversation. Denies any nausea, vomiting now. Vitals/I&O/Wt Last Vital Signs Temp 97.9 F 08/05/22 04:00 Pulse 102 H 08/05/22 15:00 Resp 13 08/05/22 08:00 BP 97/68 08/05/22 08:00 Pulse Ox 87 L 08/05/22 08:00 O2 Del Method 08/05/22 08:00 O2 Flow Rate 1 08/05/22 08:00 08/05/22 08/05/22 08/05/22 06:59 14:59 22:59 Intake Total 600 / 4317.083 580 / 580 Output Total 0 / 200 200 / 200 225 / 425 Balance 600 / 4117.083 380 / 380 -225 / 155 Physical Exam Narrative: General exam is white female, no distress Neck is supple no lymphadenopathy thyromegaly Cardiovascular irregular irregular with accelerated rate. No murmur Lungs clear Abdomen is soft nontender positive bowel sounds. No obvious organomegaly Extremities no cyanosis clubbing or edema, cap refill brisk Skin no rash Data 08/05/22 03:13 08/05/22 03:13 Micro: Microbiology 08/03/22 10:33 Urine Culture - Preliminary Urine,Clean Catch Yeast A&P Assessment and plan (1) Atrial fibrillation with RVR: Patient presents with atrial fibrillation rapid ventricular rate Takes metoprolol 25 mg succinate daily at home along with Eliquis 5 mg twice daily. Currently on Cardizem 30 mg every 8 hourly. Heart rate slightly elevated. Blood pressure slightly soft. Stop Cardizem. Restart metoprolol 25 mg twice daily. Start on amiodarone drip after 150 mg bolus. Continue full anticoagulation with Eliquis She has had a relatively recent echocardiogram. Will hold off on repeating for now (2) Cystitis: Recent culture shows Klebsiella. Sensitivities noted. In past has had infections with ESBL E. coli. For now patient does not have any leukocytosis or fever. Continue Cipro as she has reported some vomiting recently. Transition to oral as tolerated. She is allergic to penicillin and cephalosporin (3) Acute kidney injury: Patient has acute kidney injury, superimposed on chronic kidney disease Renal ultrasound did not show obstruction. Some cystic kidney disease is noted. Creatinine improving to 1.2 today. Hold off on any IV fluids or diuresis for now. Check proBNP. Repeat BMP in AM. (4) Macrocytosis: Vitamin B12 on the low normal side. 1000 mcg IM one-time. Plan Hypertension: Goal blood pressure 140/90 mmHg. Blood pressure soft. Holding off on Cardizem. Switching to amiodarone as above. We will continue to monitor. Lesion second lumbar vertebrae. She has decided not to work this up at this time. See documentation on clinic visits. This possibly represented a malignancy. Underlying history of severe pulmonary hypertension. She had steroid initiated in the last several months and reports compliance with this according to daughter. Not really sure of the reason. If hypotension persists after fluid bolus consider increasing dose. History of CVA Multiple other medical problems as outlined in past medical history She wants full code currently Eliquis will suffice for DVT prophylaxis Carb consistent diet. Discharge planning: Given multiple comorbidities along with poor physical capabi lities patient would benefit from SNF. Family agreeable. Case management working on placement. Attestations Medical Necessity Statement*: Requires further hospitalization for management of atrial fibrillation with rapid ventricular response, hypotension and complicated UTI while here discharge planning is sought. Diagnoses Atrial fibrillation with RVR I48.91 Cystitis N30.90 Acute kidney injury N17.9 Macrocytosis D75.89
[2022-08-05 16:56] LABS: Glucose Point of Care 171 mg/dL (70-110)
[2022-08-05] MEDS: cyanocobalamin 1,000 mcg/mL SDV 1000 MCG IM (17:23)
[2022-08-05] MEDS: insulin lispro 100 unit/1 mL SUBCUT (17:31)
[2022-08-05 18:19] LABS: NT Pro B Type Natriuretic Pept 574 pg/mL (0-450)
[2022-08-05] MEDS: metoprolol tartrate 25 mg Tablet PO (20:37)
[2022-08-05] MEDS: atorvastatin 40 mg Tablet 80 MG PO (20:37)
[2022-08-05 21:00] LABS: Glucose Point of Care 125 mg/dL (70-110)
[2022-08-05] MEDS: sennosides-docusate Tablet 2 TAB PO (21:26)
[2022-08-05] MEDS: acetaminophen 325 mg Tablet 650 MG PO (21:35)
[2022-08-06] VITALS (12 sets, daily range): BP systolic 99–126; BP diastolic 57–75; PULSE 62–99; RESP 14–24; TEMP 36.1–36.7; O2SAT 91–100
[2022-08-06] MEDS: diphenhydrAMINE 25 mg Capsule PO (01:31)
[2022-08-06] MEDS: ciprofloxacin 200 MG/100 ML PREMIX 100 MG IV ×2 (01:32→13:19)
[2022-08-06] MEDS: nystatin cream 30 gm 1 APPLIC TOPICAL (02:00)
[2022-08-06 03:27] LABS: Basophils % 0.2 %; Eosinophils % 0.5 %; Hematocrit 33.7 % (37.0-47.0); Hemoglobin 10.2 g/dL (11.5-15.3); Lymphocytes # 0.8 10^3/uL (0.8-4.8); Lymphocytes % 13.1 %; Mean Corpuscular HGB Conc 30.3 g/dL (30.0-36.0); Mean Corpuscular Hemoglobin 31.4 pg (28.0-34.0); Mean Corpuscular Volume 103.7 fl (81-99); Mean Platelet Volume 10.8 fL (7.4-10.4); Monocytes # 0.4 10^3/uL (0.2-0.9); Monocytes % 7.3 %; Neutrophils # 4.68 10^3/uL (1.8-7.7); Neutrophils % 77.9 %; Nucleated Red Blood Cells % 0 %; Platelet Count 144 10^3/cmm (130-400); Red Blood Count 3.25 10^6/uL (4.1-5.3); Red Cell Distribution Width 17.7 % (12.1-15.1)
[2022-08-06 03:45] LABS: Alanine Aminotransferase 20 U/L (0-33); Albumin Level 2.4 g/dL (3.5-5.2); Alkaline Phosphatase 60 U/L (35-105); Anion Gap 8.3 (5-19); Aspartate Amino Transferase 13 U/L (0-32); Blood Urea Nitrogen 33 mg/dL (8-23); Calcium 7.7 mg/dL (8.5-10.5); Carbon Dioxide 26 mmol/L (22-29); Chloride 107 mmol/L (98-107); Glucose 113 mg/dL (65-115); Osmolality Calculated 292 mOsm/kg (285-295); Potassium 4.3 mmol/L (3.5-5.1); Sodium 137 mmol/L (136-145); Total Bilirubin 0.7 mg/dL (0.15-1.2); Total Protein 4.4 g/dL (6.6-8.7)
[2022-08-06] MEDS: levothyroxine 100 mcg Tablet PO (05:13)
[2022-08-06 06:41] LABS: Glucose Point of Care 102 mg/dL (70-110)
[2022-08-06] MEDS: predniSONE 10 mg Tablet PO (08:35)
[2022-08-06] MEDS: apixaban 5 mg Tablet PO ×2 (08:35→17:33)
[2022-08-06] MEDS: pantoprazole DR 40 mg Tablet PO (08:35)
[2022-08-06] MEDS: metoprolol tartrate 25 mg Tablet PO ×2 (08:35→09:57)
[2022-08-06] MEDS: amiodarone 200 mg Tablet 400 MG PO ×2 (09:57→17:33)
--- NOTE | 2022-08-06 10:55 | PC.SOCIAL ---
IMM Update pg 2 of IMM updated and reviewed w/ patient. Copy provided and Copy dated, initialed and placed in chart.
[2022-08-06 11:01] LABS: Glucose Point of Care 108 mg/dL (70-110)
--- NOTE | 2022-08-06 14:13 | PM.PN ---
Subjective Subjective: No acute events overnight. Patient is on amiodarone drip. On examination patient sitting up in bedside commode with heart rate running in 80s. On review of telemetry seems heart rate has been running between 80s to 90s at rest going up to around 100 as per the nurse. Patient remains on room air. Medications: Reviewed: Yes Vitals/I&O/Wt Last Vital Signs Temp 97.9 F 08/06/22 12:00 Pulse 71 08/06/22 12:00 Resp 18 08/06/22 12:00 BP 106/57 08/06/22 12:00 Pulse Ox 91 08/06/22 12:00 O2 Del Method 08/06/22 12:00 O2 Flow Rate 1 08/06/22 04:00 08/05/22 08/06/22 08/06/22 22:59 06:59 14:59 Intake Total 2089.084 / 2669.084 319.266 / 2988.350 420 / 420 Output Total 400 / 600 Balance 1689.084 / 2069.084 319.266 / 2388.350 420 / 420 Physical Exam Narrative: General exam is white female, no distress Neck is supple no lymphadenopathy thyromegaly Cardiovascular irregular irregular with accelerated rate. No murmur Lungs clear Abdomen is soft nontender positive bowel sounds. No obvious organomegaly Extremities no cyanosis clubbing or edema, cap refill brisk Skin no rash Data 08/06/22 03:10 08/06/22 03:10 Micro: Microbiology 08/03/22 10:33 Urine Culture - Preliminary Urine,Clean Catch Yeast A&P Assessment and plan (1) Atrial fibrillation with RVR: With rapid ventricular response. Takes metoprolol 25 mg succinate daily at home along with Eliquis 5 mg twice daily. Continue with amiodarone drip as per protocol. Start on 400 mg twice daily. Increase metoprolol to 50 mg twice daily. Continue full anticoagulation with Eliquis She has had a relatively recent echocardiogram. Will hold off on repeating for now (2) Cystitis: Recent culture shows Klebsiella. Sensitivities noted. In past has had infections with ESBL E. coli. For now patient does not have any leukocytosis or fever. Continue Cipro as she has reported some vomiting recently. Transition to oral as tolerated. She is allergic to penicillin and cephalosporin. We will continue ciprofloxacin to finish a 5-day course. (3) Acute kidney injury: Patient has acute kidney injury, superimposed on chronic kidney disease Renal ultrasound did not show obstruction. Some cystic kidney disease is noted. Creatinine stable. Low urine output. Hold off on any IV fluids or diuresis for now. Depending on the renal functions and urine output within the next 24 hours we will plan on IV Lasix. Repeat BMP in AM. (4) Macrocytosis: Repeated vitamin B12 which is marginally low. Plan Hypertension: Goal blood pressure 140/90 mmHg. blood pressure is better. Continue with metoprolol 50 mg twice daily. We will continue to monitor. Lesion second lumbar vertebrae. She has decided not to work this up at this time. See documentation on clinic visits. This possibly represented a malignancy. Underlying history of severe pulmonary hypertension. She had steroid initiated in the last several months and reports compliance with this according to daughter. Not really sure of the reason. If hypotension persists after fluid bolus consider increasing dose. History of CVA Multiple other medical problems as outlined in past medical history She wants full code currently Eliquis will suffice for DVT prophylaxis Carb consistent diet. Discharge planning: Given multiple comorbidities along with poor physical capabilities patient would benefit from SNF. Family agreeable. Case management working on placement. Attestations Medical Necessity Statement*: Requires further hospitalization for management of atrial fibrillation with rapid ventricular response, acute kidney injury, severe physical deconditioning while safe discharge planning is sought Diagnoses Atrial fibrillation with RVR I48.91 Cystitis N30.90 Acute kidney injury N17.9 Macrocytosis D75.89
[2022-08-06] MEDS: predniSONE 5 mg Tablet PO (16:21)
[2022-08-06] MEDS: metoprolol tartrate 50 mg Tablet PO (20:57)
[2022-08-06] MEDS: atorvastatin 40 mg Tablet 80 MG PO (20:58)
[2022-08-06] MEDS: acetaminophen 325 mg Tablet 650 MG PO (21:05)
[2022-08-06 21:06] LABS: Glucose Point of Care 122 mg/dL (70-110)
[2022-08-07] MEDS: ciprofloxacin 200 MG/100 ML PREMIX 100 MG IV (00:13)
[2022-08-07 03:56] VITALS: BP 119/72; PULSE 60; RESP 12; TEMP 36.5; O2SAT 99
[2022-08-07 04:36] LABS: Alanine Aminotransferase 20 U/L (0-33); Albumin Level 2.2 g/dL (3.5-5.2); Alkaline Phosphatase 43 U/L (35-105); Anion Gap 9.3 (5-19); Aspartate Amino Transferase 12 U/L (0-32); Blood Urea Nitrogen 29 mg/dL (8-23); Carbon Dioxide 24 mmol/L (22-29); Chloride 112 mmol/L (98-107); Globulin 1.8 g/dL (1.3-4.6); Glucose 89 mg/dL (65-115); Osmolality Calculated 297 mOsm/kg (285-295); Potassium 4.3 mmol/L (3.5-5.1); Sodium 141 mmol/L (136-145); Total Bilirubin 0.4 mg/dL (0.15-1.2)
[2022-08-07 05:55] VITALS: PULSE 61
[2022-08-07] MEDS: levothyroxine 100 mcg Tablet PO (06:07)
[2022-08-07 08:00] VITALS: PULSE 62; O2SAT 96
[2022-08-07 09:00] VITALS: BP 120/62; PULSE 76; RESP 19; TEMP 36.1; O2SAT 97
[2022-08-07] MEDS: predniSONE 10 mg Tablet PO (09:05)
[2022-08-07] MEDS: amiodarone 200 mg Tablet 400 MG PO (09:05)
[2022-08-07] MEDS: pantoprazole DR 40 mg Tablet PO (09:05)
[2022-08-07] MEDS: nystatin cream 30 gm 1 APPLIC TOPICAL (09:05)
[2022-08-07] MEDS: apixaban 5 mg Tablet PO (09:05)
[2022-08-07] MEDS: metoprolol tartrate 50 mg Tablet PO (09:14)
[2022-08-07 09:32] LABS: Glucose Point of Care 74 mg/dL (70-110)
--- NOTE | 2022-08-07 09:33 | P.DS_ITS ---
Discharge Providers Date of Admission: 08/03/22 11:08 Date of Discharge: August 07, 2022 Attending Provider at Admission: Arvind Noe MD Attending Provider at Discharge: Ryan Higginbotham MD Primary Care Provider: RUDDY Varma Diagnoses at Discharge Discharge Diagnosis (1) Atrial fibrillation with RVR: Status: Acute (2) Cystitis: Status: Acute (3) Acute kidney injury: Status: Acute (4) Macrocytosis: Status: Acute Reason for Visit Reason for Visit: n/ diff breathing Brief History: History as per HPI: Evelia Denton is a 87 year old female presenting to the emergency department with 1 week history of shortness of breath, vomiting, weakness, and some global pain.? She denies any fevers.? She reports several bowel movements ago she had some bl ood streaking in the stool.? When asked about her medication she states she cannot remember all of them, and that her daughter does them.? She denies any chest discomfort.? She reports no palpitations. In the emergency department, there was some concern with her original EKG so it was sent to cardiology by the emergency department.? With improvement of her rate, her EKG pattern improved.? She was placed on Cardizem drip, and is currently at 5 mg/h with a heart rate of around 100. Hospital Course Hospital Course Patient was admitted to the hospital for further evaluation and management of mild congestive heart failure and acute kidney injury in setting of atrial fibrillation with rapid ventricular response. She was also found to have cystitis on her recent visit to the ER few days prior to admission. She was started on broad-spectrum antibiotics as per culture sensitivities from recent visit which grew Klebsiella in the urine culture. She was started at first on IV Cardizem drip for atrial fibrillation. Patient had borderline blood pressures without good control of heart rate hence she was switched over to amiodarone drip while continuing her oral metoprolol. At first she was started on IV diuresis for congestive heart failure which caused mild worsening of BAR. Patient symptoms of congestive heart failure resolved. She was kept for few days after controlling her heart rate without diuresis and her kidney function has trended down to normal. Safe discharge planning was discussed in detail with patient and patient's family at the hospital in detail. Patient and family requested for placement to SNF for further rehabitation as per physical therapy evaluation. She has been discharged in hemodynamically stable condition on oral amiodarone 400 mg twice daily for next 7 days followed by 200 mg twice daily for 7 days and then 200 mg daily. Her dose of metoprolol has been changed to 50 mg twice daily. She will be on ciprofloxacin for 3 more days to finish a course of antibiotics for cystitis. It is advised for patient to wean off steroids gradually. Her dose of prednisone has been changed to 5 mg twice daily from 10 mg in the a.m. and 5 mg in p.m. She is to follow-up with a primary care provider within next 1 week. Physical Exam Narrative: General exam is white female, no distress Neck is supple no lymphadenopathy thyromegaly Cardiovascular irregular irregular with accelerated rate. No murmur Lungs clear Abdomen is soft nontender positive bowel sounds. No obvious organomegaly Extremities no cyanosis clubbing or edema, cap refill brisk Skin no rash Discharge Data Studies Completed and Pending Completed Studies During Hospitalization Category Date Time Status XR chest 1V portable [id number] Stat Exams 08/03/22 08:37 Completed US renal BI* [id number] Routine Ultrasound 08/03/22 13:12 Completed Pending at discharge Category Date Time Status Complete Blood Count w/Auto AM LABS Lab 08/08/22 04:00 Ordered Comprehensive Metabolic Panel AM LABS Lab 08/08/22 04:00 Ordered Urine Culture Stat Lab 08/03/22 10:33 Results Radiology Impressions Chest X-Ray 08/03/22 08:37 IMPRESSION: No acute pulmonary change Renal Ultrasound 08/03/22 13:12 IMPRESSION: 1. Multiple bilateral renal cysts measuring up to 6 cm 1 of which arising midpole right kidney contains internal thickened septation, indeterminate. Recommend a follow-up renal ultrasound exam in 6 months for continued surveillance. 2. Negative for hydronephrosis. Laboratory Results WBC 6.0 10^3/uL (4.0-10.0) 08/06/22 03:10 RBC 3.25 10^6/uL (4.1-5.3) L 08/06/22 03:10 Hgb 10.2 g/dL (11.5-15.3) L 08/06/22 03:10 Hct 33.7 % (37.0-47.0) L 08/06/22 03:10 MCV 103.7 fl (81-99) H 08/06/22 03:10 MCH 31.4 pg (28.0-34.0) 08/06/22 03:10 MCHC 30.3 g/dL (30.0-36.0) 08/06/22 03:10 RDW 17.7 % (12.1-15.1) H 08/06/22 03:10 Plt Count 144 10^3/cmm (130-400) 08/06/22 03:10 MPV 10.8 fL (7.4-10.4) H 08/06/22 03:10 Neut % (Auto) 77.9 % 08/06/22 03:10 Lymph % (Auto) 13.1 % 08/06/22 03:10 Coffee % (Auto) 7.3 % 08/06/22 03:10 Eos % (Auto) 0.5 % 08/06/22 03:10 Baso % (Auto) 0.2 % 08/06/22 03:10 Neut # (Auto) 4.68 10^3/uL (1.8-7.7) 08/06/22 03:10 Lymph # (Auto) 0.8 10^3/uL (0.8-4.8) 08/06/22 03:10 Coffee # (Auto) 0.4 10^3/uL (0.2-0.9) 08/06/22 03:10 Eos # (Auto) 0.0 10^3/uL (0.0-0.8) 08/06/22 03:10 Baso # (Auto) 0.0 10^3/uL (0.0-0.1) 08/06/22 03:10 Nucleated RBC % (auto) 0 % 08/06/22 03:10 Nucleated RBCs # 0.0 /100WBC 08/06/22 03:10 Specimen Type Arterial 08/03/22 08:55 Sample Site Brachial, left 08/03/22 08:55 ABG pH 7.45 (7.35-7.45) 08/03/22 08:55 ABG pCO2 44.3 mmHg (35-45) 08/03/22 08:55 ABG pO2 94.3 mmHg (80.0-100.0) 08/03/22 08:55 ABG HCO3 31.0 mmol/L (22-26) H 08/03/22 08:55 ABG Base Excess 6.2 mmol/L (-2.0-2.0) H 08/03/22 08:55 Daniele Test N/a 08/03/22 08:55 Hematocrit 42.6 % (37-47) 08/03/22 08:55 Hgb O2 Saturation 95.8 % (95-100) 08/03/22 08:55 Carboxyhemoglobin 0.4 %THgb (0.4-20.1) 08/03/22 08:55 Methemoglobin 0.7 % (0.4-1.5) 08/03/22 08:55 Total Hemoglobin 13.9 g/dL (12-16) 08/03/22 08:55 O2 Delivery Device Nc 08/03/22 08:55 O2 Liters/Min 1.0 % 08/03/22 08:55 FiO2 24.0 % 08/03/22 08:55 Motel Manager ID Amh 08/03/22 08:55 Sodium 141 mmol/L (136-145) 08/07/22 03:33 Potassium 4.3 mmol/L (3.5-5.1) 08/07/22 03:33 Chloride 112 mmol/L (98-107) H 08/07/22 03:33 Carbon Dioxide 24 mmol/L (22-29) 08/07/22 03:33 Anion Gap 9.3 (5-19) 08/07/22 03:33 BUN 29 mg/dL (8-23) H 08/07/22 03:33 Creatinine 1.4 mg/dL (0.5-0.9) H 08/07/22 03:33 GFR Calculation Not Reportable 08/07/22 03:33 Glucose 89 mg/dL (65-115) 08/07/22 03:33 POC Glucose 74 mg/dL (70-110) 08/07/22 09:01 Calculated Osmolality 297 mOsm/kg (285-295) H 08/07/22 03:33 Calcium 8.0 mg/dL (8.5-10.5) L 08/07/22 03:33 Magnesium 2.3 mg/dL (1.7-2.3) 08/04/22 04:41 Total Bilirubin 0.4 mg/dL (0.15-1.2) 08/07/22 03:33 AST 12 U/L (0-32) 08/07/22 03:33 ALT 20 U/L (0-33) 08/07/22 03:33 Alkaline Phosphatase 43 U/L (35-105) 08/07/22 03:33 Creatine Kinase 16 U/L (26-192) L 08/04/22 04:41 Troponin T Baseline 32 ng/L (0-10) H 08/03/22 09:20 Troponin T 120 Minute 36.08 ng/L (0-10) H 08/03/22 11:30 Delta Troponin T 4.08 ABS# (0-10) 08/03/22 11:30 Troponin T Hi Sens 6Hr 26.90 ng/L (0-10) H 08/03/22 16:15 Troponin T Hi Sens 6Hr Delta -5.10 ng/L (0-12) L 08/03/22 16:15 NT-Pro-B Natriuret Pep 574 pg/mL (0-450) H 08/05/22 03:13 Total Protein 4.0 g/dL (6.6-8.7) L 08/07/22 03:33 Albumin 2.2 g/dL (3.5-5.2) L 08/07/22 03:33 Globulin 1.8 g/dL (1.3-4.6) 08/07/22 03:33 Vitamin B12 312 pg/mL (232-1245) 08/03/22 11:30 TSH 0.42 uIU/mL (0.27-4.20) 08/03/22 11:30 Urine Color Yellow (Yellow) 08/03/22 10:33 Urine Appearance Clear (CLEAR) 08/03/22 10:33 Urine pH 5 (5-7) 08/03/22 10:33 Ur Specific [place] 1.025 (1.005-1.030) 08/03/22 10:33 Urine Protein Neg (Negative) 08/03/22 10:33 Urine Glucose (UA) Norm (Normal) 08/03/22 10:33 Urine Ketones Negative (Negative) 08/03/22 10:33 Urine Blood Neg (Negative) 08/03/22 10:33 Urine Nitrate Negative (Negative) 08/03/22 10:33 Urine Bilirubin Neg (Negative) 08/03/22 10:33 Urine Urobilinogen Norm mg/dL (Negative) 08/03/22 10:33 Ur Leukocyte Esterase 1+ (Negative) H 08/03/22 10:33 Urine RBC None /hpf (0-2) 08/03/22 10:33 Urine WBC 5-10 /hpf (0-5) H 08/03/22 10:33 Ur Squamous Epith Cells 5-10 /hpf (0-5) H 08/03/22 10:33 Amorphous Sediment Not Reportable 08/03/22 10:33 Urine Bacteria None /hpf (NONE) 08/03/22 10:33 Urine Yeast 1+ /hpf H 08/03/22 10:33 Coronavirus 229E (PCR) Not detected (NOT DETECT) 08/03/22 09:20 Influenza Type A Ag negative (Negative) 08/03/22 09:20 Influenza Type B Ag negative (Negative) 08/03/22 09:20 SARS-CoV-2 (PCR) Not detected (NOT DETECT) 08/03/22 09:20 Vitals Last Vital Signs Temp 96.9 F L 08/07/22 09:00 Pulse 76 08/07/22 09:00 Resp 19 H 08/07/22 09:00 BP 120/62 08/07/22 09:00 Pulse Ox 97 08/07/22 09:00 O2 Del Method 08/07/22 09:00 O2 Flow Rate 1 08/06/22 04:00 Discharge Plan Discharge Patient Disposition: Xfer SNF Condition: Stable Prescriptions: New Pacerone 200 mg Tablet See Taper PO BID Qty: 60 0RF Taper: amiodarone 400bid to 200daily 400 mg Twice A Day for 7 Days and 0 Hour 200 mg Twice A Day for 7 Days and 0 Hour 200 mg Daily for 30 Days and 0 Hour metoprolol tartrate 50 mg Tablet 50 mg PO BID@0900,2100 Qty: 60 0RF ciprofloxacin HCl 500 mg tablet 500 mg PO Q12H Qty: 6 0RF prednisone 5 mg tablet 5 mg PO BID Qty: 60 0RF Continued (DME) Diabetic Shoes Qty: 1 0RF Rx Instructions: As directed levocetirizine 5 mg tablet 5 mg PO BEDTIME ferrous sulfate [Feosol] 325 mg (65 mg iron) tablet 325 mg PO BEDTIME furosemide [Lasix] 40 mg tablet 40 mg PO QAM Eliquis 5 mg tablet 5 mg PO BID Hold Instructions: Resume on 01/04/22. S/P CVA. ASA only then add eliquis after 1 -2 weeks esomeprazole magnesium [Nexium] 40 mg capsule,delayed release(DR/EC) 40 mg PO QAM (DME) Arm Supports for walker See Rx Instructions .Route .MEDSUPPLY Qty: 1 0RF Rx Instructions: As directed (DME) Lift Chair See Rx Instructions .Route .MEDSUPPLY Qty: 1 0RF Rx Instructions: As directed (DME) Cam Boot to the left See Rx Instructions .Route .MEDSUPPLY Qty: 1 0RF Rx Instructions: As directed (DME) Incontinent supplies Briefs See Rx Instructions .Route .MEDSUPPLY Qty: 120 12RF Rx Instructions: As directed metformin 500 mg tablet extended release 24 hr 500 mg PO DAILY Rx Instructions: ON HOLD OF 07/31/22 ondansetron HCl 4 mg tablet 4 mg PO Q6H PRN (Reason: nausea and vomiting) Qty: 20 0RF rosuvastatin 20 mg tablet 20 mg PO BEDTIME levothyroxine 100 mcg tablet 100 mcg PO QAM potassium chloride 20 mEq tablet,ER particles/crystals 20 meq PO QAM hydrocodone-acetaminophen 5-325 mg tablet 1 tab PO Q12H Discontinued prednisone 10 mg tablet See Rx Instructions .ROUTE .COMPLEX Qty: 60 0RF Dose Instruction: TAKE 1 TABLET BY MOUTH TWICE DAILY Rx Instructions: 10mg po qam and 5mg po bedtime nitrofurantoin monohyd/m-cryst [Macrobid] 100 mg capsule 100 mg PO BID 7 Days Qty: 14 0RF Rx Instructions: must administer with a meal/food amlodipine 5 mg tablet 5 mg PO DAILY metoprolol succinate [Toprol XL] 25 mg tablet extended release 24 hr 25 mg PO QAM valsartan 160 mg tablet 160 mg PO QAM Discharge Orders: Discharge Order (Routine); Ordered 08/07/22 Ordered By: Ryan Higginbotham Referrals: [facility] [Outside] Shaan Carty FNP [Primary Care Provider] - 7-10 days Bob Boland DPM [Physician] - 7-10 days Discharge Diet: Cardiac and Diabetic Discharge Activity: Resume usual activity and Increase activity as tolerated Patient Instructions: Ciprofloxacin (By mouth), Metoprolol (By mouth) (Lopressor, Toprol XL), Amiodarone (By mouth) (Cordarone, Pacerone), A-fib (Atrial Fibrillation) (DC), Acute Kidney Injury (DC), Urinary Tract Infection in Women (DC), Opioid Safety Activity Restrictions/Additional Instructions: Please take amiodarone 400 mg twice daily for next 1 week followed by 200 mg twice daily for 1 week. And then 200 mg daily. Amlodipine and valsartan has been stopped. Metoprolol has been changed to 50 mg twice daily. Dose of prednisone has been changed to 5 mg in the morning and 5 mg in the evening. Please try to taper down gradually within next 2 to 3 months. You will be on antibiotics ciprofloxacin morning and evening for next 3 days. Please follow-up with a primary care provider within next 1 week. Follow-up with Dr. Boland from podiatry within next 1 week. Continue Betadine wet-to-dry daily dressing changes. Discharge Attestations Time Spent in Discharge Care*: greater than 30 min Specific Discharge Activities: educating patient, educating and/or supporting family/caregiver, discussing with pcp/other providers, discussing with case management director/social workers/dc planners, documenting/other paperwork and evaluating patient/reviewing data Status at Discharge: Cognitive status at discharge: cognitively intact , Behavioral status at discharge: cooperative , Functional status at discharge: uses cane/walker , Overall status at discharge: patient is progressing back to baseline Quality Metrics Clinical Quality Measures [ No reported AMI, CVA or VTE this stay] Coding Level of Care Code 39895 Total time (in minutes) for Discharge: 60 Diagnoses Atrial fibrillation with RVR I48.91 Cystitis N30.90 Acute kidney injury N17.9 Macrocytosis D75.89
[2022-08-07 11:08] LABS: Glucose Point of Care 155 mg/dL (70-110)
[2022-08-07 12:00] VITALS: BP 113/63; PULSE 67; RESP 17; TEMP 37.1; O2SAT 96
[2022-08-07] MEDS: insulin lispro 100 unit/1 mL SUBCUT (12:00)
[2022-08-07 12:02] LABS: SARS Covid-2 Antigen negative (Negative)
--- NOTE | 2022-08-07 12:08 | PM.CONSULT ---
Providers/Reason For Consult Consulting Physician/Specialty*: Bob Boland D.P.M. Reason for Consult*: Right diabetic foot ulcer. Attending Physician: Ryan Higginbotham MD Primary Care Provider: RUDDY Varma History of Present Illness History of Present Illness Evelia Denton is a 87 year old female currently on cardiac stepdown unit for A-fib with RVR and BAR. I followed the patient for a grade 2 wound on her right foot. Daily dressing changes have been performed during this hospitalization. Betadine wet-to-dry to the right foot. Review of Systems General: Reports: 10 or more systems reviewed and unremarkable except in HPI and below Const: Denies: fever(s) or chills Eyes: Denies: change in vision Card: Denies: chest pain or palpitations Resp: Denies: dyspnea or productive cough GI: Denies: abdominal pain, nausea or vomiting : Denies: flank pain Musc: Reports: extremity swelling, joint stiffness and deformity Skin/Breast: Reports: erythema, sores, changes in skin color, dry skin, nail changes and change in hair Neuro: Reports: numbness in extremities, sensory changes and difficulty walking Psych: Denies: suicidal ideation Endo: Denies: change in body appearance Elvis/Lymph: Denies: tender lymph nodes Medications/Allergies Home Medications Medication Instructions Recorded Confirmed Last Taken Type apixaban 5 mg tablet (Eliquis) 5 mg PO BID 06/02/19 08/03/22 08/02/22 History esomeprazole magnesium 40 mg 40 mg PO QAM 06/02/19 08/03/22 1 Week Ago History capsule,delayed release (Nexium) ~07/27/22 out for a week furosemide 40 mg tablet (Lasix) 40 mg PO QAM 06/02/19 08/03/22 08/02/22 History Diabetic Shoes #1 ea 06/09/19 08/03/22 Unknown Rx ferrous sulfate 325 mg (65 mg 325 mg PO BEDTIME 11/10/19 08/03/22 1 Week Ago History iron) tablet (Feosol) ~07/27/22 out for a week levocetirizine 5 mg tablet 5 mg PO BEDTIME 11/10/19 08/03/22 08/02/22 History Incontinent supplies #120 ea 08/23/20 08/03/22 Unknown Rx metformin 500 mg tablet,extended 500 mg PO DAILY 12/27/21 08/03/22 04/24/22 History release 24 hr Arm Supports for walker #1 ea 03/02/22 08/03/22 Unknown Rx Lift Chair #1 ea 03/02/22 08/03/22 Unknown Rx rosuvastatin 20 mg tablet 20 mg PO BEDTIME 03/04/22 08/03/22 08/02/22 History Cam Boot to the left #1 ea 06/19/22 08/03/22 Unknown Rx ondansetron HCl 4 mg tablet 4 mg PO Q6H PRN nausea and 07/31/22 08/03/22 Unknown Rx vomiting #20 tabs hydrocodone 5 mg-acetaminophen 325 1 tab PO Q12H 08/03/22 08/03/22 08/02/22 History mg tablet levothyroxine 100 mcg tablet 100 mcg PO QAM 08/03/22 08/03/22 08/02/22 History potassium chloride 20 mEq 20 meq PO QAM 08/03/22 08/03/22 08/02/22 History tablet,extended release(part/cryst) amiodarone 200 mg tablet (Pacerone) See Taper PO BID #60 tabs 08/07/22 Unknown Rx ciprofloxacin HCl 500 mg tablet 500 mg PO Q12H #6 tabs 08/07/22 Unknown Rx metoprolol tartrate 50 mg tablet 50 mg PO BID@0900,2100 #60 tabs 08/07/22 Unknown Rx prednisone 10 mg tablet See Rx Instructions .Route 08/07/22 08/03/22 08/02/22 Rx .COMPLEX #60 tabs Allergies Allergy/AdvReac Type Severity Reaction Status Date / Time cephalexin [From Keflex] Allergy ALGY-Rash Verified 08/03/22 09:30 Iodinated Contrast Media Allergy ALGY-Swell Verified 08/03/22 09:30 Lip/Tongue/Throat Penicillins Allergy ALGY-Rash Verified 08/03/22 09:30 Current Medications Generic Name Dose Route Start Last Admin Trade Name Freq PRN Reason Stop Dose Admin Acetaminophen 650 mg 08/03/22 13:15 08/06/22 21:05 Acetaminophen 325 Mg Tablet PO 650 mg Q6H PRN Administration Mild/Mod Pain Or Temp >/= 101 Hydrocodone Bitart/Acetaminophen 1 tab 08/03/22 13:18 08/05/22 03:43 Hydrocodone-Acetaminophen 5-325 Mg Tablet PO 1 tab Q12H PRN Administration MODERATE PAIN Amiodarone HCl 400 mg 08/06/22 09:30 08/07/22 09:05 Amiodarone 200 Mg Tablet PO 400 mg BID YULIET Administration Apixaban 5 mg 08/03/22 18:00 08/07/22 09:05 Apixaban 5 Mg Tablet PO 5 mg BID YULIET Administration Atorvastatin Calcium 80 mg 08/03/22 21:00 08/06/22 20:58 Atorvastatin 40 Mg Tablet PO 80 mg BEDTIME YULIET Administration Diphenhydramine HCl 25 mg 08/05/22 21:03 08/06/22 01:31 Diphenhydramine 25 Mg Capsule PO 25 mg Q12H PRN Administration ITCHING Furosemide 40 mg 08/07/22 08:35 08/07/22 09:07 Furosemide 40 Mg Tablet PO Not Given DAILY@0800 YULIET Ciprofloxacin/Dextrose 200 mg in 100 mls @ 100 mls/hr 08/03/22 13:00 08/07/22 01:34 Cipro IV Infused Q12H YULIET Infusion Protocol Amiodarone HCl 900 mg/ 518 mls @ 0 mls/hr 08/05/22 16:45 08/06/22 17:19 Dextrose/ IV Miscellaneous IV Infused Supplies .Q0M YULIET Titration Protocol Per Protocol Insulin Human Lispro 0 unit 08/03/22 18:00 08/07/22 12:00 Insulin Lispro 100 Unit/1 Ml SUBCUT 2 unit WM&BEDTIME YULIET Administration Protocol Levothyroxine Sodium 100 mcg 08/04/22 06:00 08/07/22 06:07 Levothyroxine 100 Mcg Tablet PO 100 mcg QAM YULIET Administration Metoprolol Tartrate 50 mg 08/06/22 21:00 08/07/22 09:14 Metoprolol Tartrate 50 Mg Tablet PO 50 mg BID@0900,2100 YULIET Administration Nystatin 1 applic 08/04/22 09:00 08/07/22 09:05 Nystatin Cream 30 Gm TOPICAL 1 applic BID YULIET Administration Ondansetron HCl 4 mg 08/03/22 13:15 08/04/22 08:11 Ondansetron 2 Mg/Ml Sdv 2 Ml IVP 4 mg Q6H PRN Administration vomiting, or N/V if npo Pantoprazole Sodium 40 mg 08/04/22 09:00 08/07/22 09:[address] 40 Mg Tablet PO 40 mg DAILY YULIET Administration Prednisone 10 mg 08/04/22 08:00 08/07/22 09:05 Prednisone 10 Mg Tablet PO 10 mg 0800 YULIET Administration Prednisone 5 mg 08/03/22 16:00 08/06/22 16:21 Prednisone 5 Mg Tablet PO 5 mg 1600 YULIET Administration Senna/Docusate Sodium 2 tab 08/05/22 21:03 08/05/22 21:26 Sennosides-Docusate Tablet PO 2 tab DAILY PRN Administration CONSTIPATION Trazodone HCl 25 mg 08/03/22 23:46 08/04/22 00:44 Trazodone 50 Mg Tablet PO 25 mg BEDTIME PRN Administration INSOMNIA PFSH Acute PFSH: Medical History Actinic keratosis left forearm, removed Anemia At high risk for falls Atrial fibrillation with RVR Basal cell carcinoma left earlobe, removed Cerebrovascular accident with involvement of left side of body CHF (congestive heart failure) Chronic a-fib Chronic anticoagulation Eliquis, for chronic afib Chronic cystitis CKD (chronic kidney disease) COVID-19 (~07/2020) Diabetes Dyslipidemia Feeling of incomplete bladder emptying Glucose intolerance prediabetes, on metformin Hypertension Hypothyroidism Incontinent of urine Left shoulder pain Osteoarthritis of left shoulder Surgical History H/O bilateral oophorectomy History of back surgery lumbar Hx of cholecystectomy several complications requiring additional procedures post op Hx of total knee replacement Family History Father , at age 79 Diabetes Daughter Stroke Family/Other Stroke Aunt Social History Smoking and tobacco status: never smoked Alcohol intake: never Adopted: No Lives independently: Yes Housing: House Current occupational status: retired Female Reproductive History: Para: 6 Spontaneous abortions: Yes (1) Vitals/I&O/Wt Last Vital Signs Temp 96.9 F L 08/07/22 09:00 Pulse 76 08/07/22 09:00 Resp 19 H 08/07/22 09:00 BP 120/62 08/07/22 09:00 Pulse Ox 97 08/07/22 09:00 O2 Del Method 08/07/22 09:00 O2 Flow Rate 1 08/06/22 04:00 08/06/22 08/07/22 08/07/22 22:59 06:59 14:59 Intake Total 888.734 / 1408.734 100 / 1508.734 480 / 480 Balance 888.734 / 1408.734 100 / 1508.734 480 / 480 Physical Exam Narrative: Patient is alert and oriented ?3 and in no acute distress.? The following is a focused bilateral lower extremity exam.? Patient ambulates without assistance is wearing regular tennis shoes. VASCULAR: Dorsalis pedis palpable +2 bilaterally.? Posterior tibial artery nonpalpable bilaterally.? Capillary refill time less than 3 seconds to the distal hallux bilaterally. Calf is supple and nontender proximally and distally.? Varicosities to the lower extremities, decreased pedal hair growth bilaterally. NEUROLOGICAL: Protective sensation intact 8/10 sites, tested with [place] monofilament to bilateral feet. DERMATOLOGICAL: Wound to the right bunion deformity measures 1.3 cm x 2.1 cm x 0.1 cm with erythema and bogginess. No purulence, no joint capsule appreciated, no tendon exposed to the right foot wound. MUSCULOSKELETAL: Reducible hammertoe deformities 2 through 5 bilaterally left second is most severe.? Hallux valgus deformity bilaterally.? Hallux is not track bound.? Pes planus noted bilaterally.? Muscle strength 5 out of 5 in all 3 cardinal planes pain-free without guarding. Data 08/06/22 03:10 08/07/22 03:33 A&P Assessment and plan (1) Diabetic peripheral neuropathy associated with type 2 diabetes mellitus: (2) Non-pressure chronic ulcer of other part of right foot with fat layer exposed: (3) Bilateral bunions: Plan 87-year-old diabetic female with grade 2 wound to the right bunion. Previously documented wounds at the left foot are epithelialized. Was on doxycycline outpatient 100 mg twice daily prior to the hospitalization. Was given a 14-day course. We will continue this until completed. Contacted [facility] [employer] to dispense Prevalon boot (or equivalent offloading device to her right foot) for offloading of the bunion prominence when she is in bed sleeping Continue with Betadine wet-to-dry daily dressing change Will follow-up in podiatry clinic outpatient next week Consult Attestations Medical Necessity Statement: Diabetic foot ulcer Coding Level of Care Code Acute Code for Chg Fwd Diagnoses Diabetic peripheral neuropathy associated with type 2 diabetes mellitus E11.42 Non-pressure chronic ulcer of other part of right foot with fat layer exposed L97.512 Bilateral bunions M21.611; M21.612
--- NOTE | 2022-08-07 12:26 | PC.NURSE ---
Report called to [facility] aldo Galvan LPN 08/07/2022 [id number]
[2022-08-07] MEDS: acetaminophen 325 mg Tablet 650 MG PO (13:01)
[2022-08-07 13:02] VITALS: BP 113/63; PULSE 67; RESP 17
--- NOTE | 2022-08-07 13:04 | PC.NURSE ---
IV removed, patient dressed and assisted to the wheelchair. patient and family provided education and discharge information. brought to main entrance.
== END 2022-08-07 13:07 | disposition skilled nursing facility (03) | DRG 309 ==
LOC: ER 11:08 → ER IP 12:09 → CSU 13:10
PROVIDERS: Admitting Provider Internal Medicine; Emergency Provider Emergency Medicine; PCP Registered Nurse; Visit Provider Student in an Organized Health Care Education/Training Program
DX: I48.20 Chronic atrial fibrillation, unspecified (principal); I13.0 Hypertensive heart and chronic kidney disease with heart failure and stage 1 through stage 4 chronic kidney disease, or unspecified chronic kidney disease; N17.9 Acute kidney failure, unspecified; E11.42 Type 2 diabetes mellitus with diabetic polyneuropathy; E11.621 Type 2 diabetes mellitus with foot ulcer; L97.512 Non-pressure chronic ulcer of other part of right foot with fat layer exposed; E11.22 Type 2 diabetes mellitus with diabetic chronic kidney disease; N18.9 Chronic kidney disease, unspecified; I50.9 Heart failure, unspecified; Z79.01 Long term (current) use of anticoagulants; Z79.84 Long term (current) use of oral hypoglycemic drugs; Z79.891 Long term (current) use of opiate analgesic; Z85.828 Personal history of other malignant neoplasm of skin; Z86.73 Personal history of transient ischemic attack (TIA), and cerebral infarction without residual deficits; Z86.16 Personal history of COVID-19; E78.5 Hyperlipidemia, unspecified; E03.9 Hypothyroidism, unspecified; M19.012 Primary osteoarthritis, left shoulder; N30.20 Other chronic cystitis without hematuria; Z88.1 Allergy status to other antibiotic agents; Z88.0 Allergy status to penicillin; M21.612 Bunion of left foot; M21.611 Bunion of right foot; M89.9 Disorder of bone, unspecified; I95.9 Hypotension, unspecified; I27.20 Pulmonary hypertension, unspecified; D63.1 Anemia in chronic kidney disease
CPT/HCPCS: 36415; 36416; 36600; 71045; 76770; 80048; 80053; 81001; 81015; 82550; 82607; 82805; 82962; 83735; 83880; 84443; 84484; 85025; 87077; 87086; 87106; 87186; 87426; 87635; 87804; 93005; 96365; 96366; 96367; 96372; 96375; 96376; 97110; 97116; 97161; 97166; 97530; 99285; 99291; J0282; J0744; J1815; J2405; J3420; J3475; J3490; J7030; J7040; J7060; J7512

== ENCOUNTER → 2022-09-12 10:50 | Outpatient (BNVA) | payer MEDICARE, MEDICAID, SELFPAY | PROVIDERS: PCP Registered Nurse; Visit Provider Podiatrist Foot & Ankle Surgery | DX: E11.621 Type 2 diabetes mellitus with foot ulcer (principal); L97.522 Non-pressure chronic ulcer of other part of left foot with fat layer exposed; I73.9 Peripheral vascular disease, unspecified; L97.513 Non-pressure chronic ulcer of other part of right foot with necrosis of muscle; M20.42 Other hammer toe(s) (acquired), left foot; M20.12 Hallux valgus (acquired), left foot; M20.11 Hallux valgus (acquired), right foot; M21.41 Flat foot [pes planus] (acquired), right foot; M21.42 Flat foot [pes planus] (acquired), left foot; L60.3 Nail dystrophy; E11.42 Type 2 diabetes mellitus with diabetic polyneuropathy; Z79.84 Long term (current) use of oral hypoglycemic drugs | CPT/HCPCS: 11043; 36415; 73630; 80053; 85025; 85651; 87070; 87075; 87077; 87186; 87205 ==

== ENCOUNTER 2022-09-12 11:27 | Outpatient (CLI) | payer MEDICARE, MEDICAID, SELFPAY ==
[2022-09-12 12:27] LABS: Basophils % 0.6 %; Eosinophils % 0.5 %; Hematocrit 33.6 % (37.0-47.0); Hemoglobin 9.7 g/dL (11.5-15.3); Lymphocytes # 0.8 10^3/uL (0.8-4.8); Lymphocytes % 13.3 %; Mean Corpuscular HGB Conc 28.9 g/dL (30.0-36.0); Mean Corpuscular Hemoglobin 31.8 pg (28.0-34.0); Mean Corpuscular Volume 110.2 fl (81-99); Mean Platelet Volume 10.7 fL (7.4-10.4); Monocytes # 0.5 10^3/uL (0.2-0.9); Monocytes % 7.9 %; Neutrophils # 4.82 10^3/uL (1.8-7.7); Neutrophils % 77.2 %; Nucleated Red Blood Cells % 0 %; Platelet Count 230 10^3/cmm (130-400); Red Blood Count 3.05 10^6/uL (4.1-5.3); Red Cell Distribution Width 15.7 % (12.1-15.1); White Blood Count 6.2 10^3/uL (4.0-10.0)
[2022-09-12 12:30] LABS: Erythrocyte Sedimentation Rate 6 mm/hr (0-15)
[2022-09-12 12:44] LABS: Alanine Aminotransferase 10 U/L (0-33); Albumin Level 2.9 g/dL (3.5-5.2); Alkaline Phosphatase 65 U/L (35-105); Anion Gap 13.4 (5-19); Aspartate Amino Transferase 12 U/L (0-32); Blood Urea Nitrogen 23 mg/dL (8-23); Calcium 8.4 mg/dL (8.5-10.5); Carbon Dioxide 33 mmol/L (22-29); Chloride 102 mmol/L (98-107); Globulin 2.9 g/dL (1.3-4.6); Glucose 106 mg/dL (65-115); Osmolality Calculated 302 mOsm/kg (285-295); Potassium 4.4 mmol/L (3.5-5.1); Sodium 144 mmol/L (136-145); Total Bilirubin 0.5 mg/dL (0.15-1.2); Total Protein 5.8 g/dL (6.6-8.7)
== END 2022-09-12 11:28 | disposition home or self-care (01) ==
LOC: LAB 11:33
PROVIDERS: PCP Registered Nurse; Visit Provider Podiatrist Foot & Ankle Surgery
DX: L97.522 Non-pressure chronic ulcer of other part of left foot with fat layer exposed (principal)
CPT/HCPCS: 11043; 36415; 80053; 85025; 85651; 87070; 87075; 87077; 87186; 87205

== ENCOUNTER 2022-09-13 17:26 | Emergency (ER) | payer MEDICARE, MEDICAID, SELFPAY ==
[2022-09-13 17:32] VITALS: BP 142/59; PULSE 70; RESP 17; O2SAT 96
--- NOTE | 2022-09-13 17:43 | XRR_ITS ---
PROCEDURE INFORMATION: Exam: XR Right Foot Exam date and time: 09/13/2022 5:50 PM Age: 87 years old Clinical indication: Pain; Foot; Right; Additional info: Foot pain TECHNIQUE: Imaging protocol: Radiologic exam of the right foot. Views: 3 or more views. COMPARISON: No relevant prior studies available. FINDINGS: Bones/joints: Generalized osseous demineralization noted. Osseous structures are intact. Negative for fracture. Bunion noted with hypertrophy and lateral angulation of the 1st metatarsal. Soft tissues: Normal. XR/XR foot RT min 3V* [id number] IMPRESSION: No acute findings. Bunion noted.
--- NOTE | 2022-09-13 18:00 | XRR_ITS ---
PROCEDURE INFORMATION: Exam: XR Chest Exam date and time: 09/13/2022 6:42 PM Age: 87 years old Clinical indication: Other: Palpitations TECHNIQUE: Imaging protocol: Radiologic exam of the chest. Views: 1 view. COMPARISON: CR XR chest 1V portable [id number] 08/03/2022 9:02 AM FINDINGS: Lungs: Mild atelectasis at the right lung base. Compressive atelectasis at the left lung base. The bilateral upper lungs appear unremarkable. Pleural spaces: Moderate-sized left pleural effusion. Heart/Mediastinum: Mild cardiomegaly is noted. Vasculature: The thoracic aorta is atherosclerotic. Bones/joints: Unremarkable. XR/XR chest 1V portable [id number] IMPRESSION: 1. Mild cardiomegaly is noted. 2. Moderate-sized left pleural effusion. This is new when compared to 08/03/2022. 3. Mild atelectasis at the right lung base. Compressive atelectasis at the left lung base.
--- NOTE | 2022-09-13 19:04 | W.ED.EXTPRO ---
HPI - Extremity Problem General: Chief complaint: Extremity Problem,Nontraumatic Stated complaint: SOB Time Seen by Provider: 09/13/22 17:56 History of Present Illness: Patient presents to the ER by EMS. Patient is giving to drastically different stories to nursing and myself. Per nursing she is here for eval of her chronic wounds on her foot. She told me she was having chest pain palpitations and shortness of breath earlier today and so she called EMS. MD Complaint: other (Foot pain chest pain palpitations) Pain Consistency: constant Location: right (Right foot) Quality: aching Radiation: none Relieving factors: nothing Exacerbating factors: nothing Associated symptoms: Reports no associated symptoms and chest pain; Deny fever(s) Review of Systems General: Reports: 10 or more systems reviewed and unremarkable except in HPI and below Const: Denies: fever(s) or chills Eyes: Denies: change in vision or photophobia ENMT: Denies: throat pain or odynophagia Card: Reports: chest pain, palpitations and irregular heart rhythm Resp: Denies: dyspnea, productive cough or non-productive cough GI: Denies: abdominal pain, nausea or vomiting : Denies: flank pain, difficulty voiding or dysuria Musc: Reports: extremity pain; Denies: neck pain or back pain PFSH ED PFSH: Medical History Actinic keratosis left forearm, removed Anemia At high risk for falls Atrial fibrillation with RVR Basal cell carcinoma left earlobe, removed Cerebrovascular accident with involvement of left side of body CHF (congestive heart failure) Chronic a-fib Chronic anticoagulation Eliquis, for chronic afib Chronic cystitis CKD (chronic kidney disease) COVID-19 (~07/2020) Diabetes Dyslipidemia Feeling of incomplete bladder emptying Glucose intolerance prediabetes, on metformin Hypertension Hypothyroidism Incontinent of urine Left shoulder pain Osteoarthritis of left shoulder Surgical History H/O bilateral oophorectomy History of back surgery lumbar Hx of cholecystectomy several complications requiring additional procedures post op Hx of total knee replacement Family History Father , at age 79 Diabetes Daughter Stroke Family/Other Stroke Aunt Social History (Reviewed 09/13/22 @ 19:07 by PAZ Thompson Smoking and tobacco status: never smoked Alcohol intake: never Substance/Drug Use: never Adopted: No Lives independently: Yes Housing: House Current occupational status: retired Female Reproductive History: Para: 6 Spontaneous abortions: Yes (1) Physical Exam Const: COMMON NORMALS: no acute distress, average body habitus, patient oriented x3, no limitations, healthy appearing, alert and well nourished HENMT: COMMON NORMALS: normocephalic, atraumatic, hearing grossly normal bilaterally, external ears normal, Normal external nose present and moist oral mucous membranes HEAD & SCALP: normocephalic and atraumatic NOSE: Normal external nose present EXTERNAL EAR: Yes external ears normal Eye: COMMON NORMALS: Equal, round and reactive pupils present, EOMs intact bilaterally, conjunctivae normal and no scleral icterus CONJUNCTIVA: Yes conjunctivae normal PUPIL: Yes Equal, round and reactive pupils present Neck/C-Spine: COMMON NORMALS: full ROM, no lymphadenopathy, supple, no meningeal signs, no JVD and Thyroid normal THYROID: Thyroid normal Lymph: LYMPHATIC: no lymphadenopathy noted Chest: COMMONS NORMALS: normal inspection of the chest and normal palpation of entire chest wall Resp: COMMON NORMALS: normal respiratory effort, No retractions, No use of accessory muscles and clear to auscultation bilaterally AUSCULTATION: clear to auscultation bilaterally Cardio: COMMON NORMALS: no JVD, regular rate, regular rhythm, S1 normal heart sound present, S2 normal heart sound present, No gallops present (Cardio), No clicks present (Cardio), No murmurs present (Cardio) and No rub (Cardio) RATE: regular rate RHYTHM: regular rhythm HEART SOUNDS: S1 normal heart sound present and S2 normal heart sound present GI: COMMON NORMALS: Normal to inspection, nondistended, normoactive bowel sounds present, Soft to palpation, non-tender, No hepatosplenomegaly present and no masses PALPATION: Yes Soft to palpation and Yes No hepatosplenomegaly present Neuro: COMMON NORMALS: patient oriented x3 SENSORIUM/ORIENTATION: Yes alert MENINGEAL SIGNS: Yes no meningeal signs Course Vital Signs: Vital signs: Vital Signs Pulse Rate 70 09/13/22 17:32 Respiratory Rate 17 09/13/22 17:32 Blood Pressure 142/59 09/13/22 17:32 Pulse Oximetry 96 09/13/22 17:32 Oxygen Delivery Me thod Nasal Cannula 09/13/22 17:32 Oxygen Flow Rate 2 09/13/22 17:32 MDM - Extremity (Nontraumatic) Medical Decision Making Patient presents to the ER with complaints of foot pain but also states she had been having palpitations. Physical exam and lab work as well as imaging were benign and findings. Patient does have anemia with a hemoglobin of 9.6 and 33.9 hematocrit, BUN/creatinine of 24 and 1.6, x-ray showed moderate size left pleural effusion is new when compared to 08/03/2022. None of these findings warrant inpatient mission at this time patient be discharged home to follow back up with her PCP within the next 1 week. Differential Diagnosis Unlikely herpes zoster, gout or cellulitis Medical Records I reviewed the patient's medical records. Lab Data I reviewed the patient's lab results. 09/13/22 19:20 09/13/22 19:20 Radiology Impressions Foot X-Ray 09/13/22 17:43 IMPRESSION: No acute findings. Bunion noted. Chest X-Ray 09/13/22 18:00 IMPRESSION: 1. Mild cardiomegaly is noted. 2. Moderate-sized left pleural effusion. This is new when compared to 08/03/2022. 3. Mild atelectasis at the right lung base. Compressive atelectasis at the left lung base. Laboratory Results WBC 7.4 10^3/uL (4.0-10.0) 09/13/22 19:20 RBC 3.09 10^6/uL (4.1-5.3) L 09/13/22 19:20 Hgb 9.6 g/dL (11.5-15.3) L 09/13/22 19:20 Hct 33.9 % (37.0-47.0) L 09/13/22 19:20 MCV 109.7 fl (81-99) H 09/13/22 19:20 MCH 31.1 pg (28.0-34.0) 09/13/22 19:20 MCHC 28.3 g/dL (30.0-36.0) L 09/13/22 19:20 RDW 15.5 % (12.1-15.1) H 09/13/22 19:20 Plt Count 190 10^3/cmm (130-400) 09/13/22 19:20 MPV 10.9 fL (7.4-10.4) H 09/13/22 19:20 Neut % (Auto) 81.1 % 09/13/22 19:20 Lymph % (Auto) 11.8 % 09/13/22 19:20 [place] % (Auto) 6.1 % 09/13/22 19:20 Eos % (Auto) 0.1 % 09/13/22 19:20 Baso % (Auto) 0.4 % 09/13/22 19:20 Neut # (Auto) 6.00 10^3/uL (1.8-7.7) 09/13/22 19:20 Lymph # (Auto) 0.9 10^3/uL (0.8-4.8) 09/13/22 19:20 [place] # (Auto) 0.5 10^3/uL (0.2-0.9) 09/13/22 19:20 Eos # (Auto) 0.0 10^3/uL (0.0-0.8) 09/13/22 19:20 Baso # (Auto) 0.0 10^3/uL (0.0-0.1) 09/13/22 19:20 Nucleated RBC % (auto) 0 % 09/13/22 19: Nucleated RBCs # 0.0 /100WBC 09/13/22 19:20 Sodium 143 mmol/L (136-145) 09/13/22 19:20 Potassium 3.6 mmol/L (3.5-5.1) 09/13/22 19:20 Chloride 102 mmol/L (98-107) 09/13/22 19:20 Carbon Dioxide 33 mmol/L (22-29) H 09/13/22 19:20 Anion Gap 11.6 (5-19) 09/13/22 19:20 BUN 24 mg/dL (8-23) H 09/13/22 19:20 Creatinine 1.6 mg/dL (0.5-0.9) H 09/13/22 19:20 GFR Calculation Not Reportable 09/13/22 19:20 Glucose 94 mg/dL (65-115) 09/13/22 19:20 Calculated Osmolality 300 mOsm/kg (285-295) H 09/13/22 19:20 Calcium 8.1 mg/dL (8.5-10.5) L 09/13/22 19:20 Total Bilirubin 0.4 mg/dL (0.15-1.2) 09/13/22 19:20 AST 12 U/L (0-32) 09/13/22 19:20 ALT 11 U/L (0-33) 09/13/22 19:20 Alkaline Phosphatase 60 U/L (35-105) 09/13/22 19:20 Total Protein 5.7 g/dL (6.6-8.7) L 09/13/22 19:20 Albumin 3.0 g/dL (3.5-5.2) L 09/13/22 19:20 Globulin 2.7 g/dL (1.3-4.6) 09/13/22 19:20 EKG Data EKG 1: I personally reviewed and interpreted this EKG as follows: EKG interpretation date: 09/13/22 EKG interpretation time: 19:39 Prior EKG tracings: not available for review Interpretation: EKG showed atrial fibrillation with ventricular rate of 73 bpm, QRS duration 98, QTc 429, incomplete right bundle branch block, septal myocardial infarction probably old Q waves in V1 and V2 the right axis deviation Discharge Plan Discharge Patient Disposition: Home Clinical Impression: Atrial fibrillation, Bilateral foot pain, Pleural effusion, left Condition: Stable Prescriptions: No Action (DME) Diabetic Shoes Qty: 1 0RF Rx Instructions: As directed levocetirizine 5 mg tablet 5 mg PO BEDTIME ferrous sulfate [Feosol] 325 mg (65 mg iron) tablet 325 mg PO BEDTIME furosemide [Lasix] 40 mg tablet 40 mg PO QAM Eliquis 5 mg tablet 5 mg PO BID Hold Instructions: Resume on 01/04/22. S/P CVA. ASA only then add eliquis after 1 -2 weeks esomeprazole magnesium [Nexium] 40 mg capsule,delayed release(DR/EC) 40 mg PO QAM (DME) Arm Supports for walker See Rx Instructions .Route .MEDSUPPLY Qty: 1 0RF Rx Instructions: As directed (DME) Lift Chair See Rx Instructions .Route .MEDSUPPLY Qty: 1 0RF Rx Instructions: As directed mupirocin 2 % ointment 1 applic topical BID Qty: 15 0RF doxycycline hyclate 100 mg capsule 100 mg PO DAILY 14 Days Qty: 14 0RF sulfamethoxazole-trimethoprim [Bactrim DS] 800-160 mg tablet 1 tab PO BID 14 Days Qty: 28 0RF (DME) Cam Boot to the left See Rx Instructions .Route .MEDSUPPLY Qty: 1 0RF Rx Instructions: As directed (DME) Incontinent supplies Briefs See Rx Instructions .Route .MEDSUPPLY Qty: 120 12RF Rx Instructions: As directed azithromycin 250 mg tablet See Rx Instructions PO .COMPLEX Qty: 6 0RF Rx Instructions: take 500 mg today (day 1), then 250 mg for 4 days (days 2-5) PO metformin 500 mg tablet extended release 24 hr 500 mg PO DAILY Rx Instructions: ON HOLD OF 07/31/22 ondansetron HCl 4 mg tablet 4 mg PO Q6H PRN (Reason: nausea and vomiting) Qty: 20 0RF rosuvastatin 20 mg tablet 20 mg PO BEDTIME levothyroxine 100 mcg tablet 100 mcg PO QAM potassium chloride 20 mEq tablet,ER particles/crystals 20 meq PO QAM hydrocodone-acetaminophen 5-325 mg tablet 1 tab PO Q12H Pacerone 200 mg Tablet See Taper PO BID Qty: 60 0RF Taper: amiodarone 400bid to 200daily 400 mg Twice A Day for 7 Days and 0 Hour 200 mg Twice A Day for 7 Days and 0 Hour 200 mg Daily for 30 Days and 0 Hour metoprolol tartrate 50 mg Tablet 50 mg PO BID@0900,2100 Qty: 60 0RF prednisone 5 mg tablet 5 mg PO BID Qty: 60 0RF Discharge Orders: Discharge ED (Routine); Ordered 09/13/22 Ordered By: Barry Wen Referrals: Shaan Carty FNP [Primary Care Provider] - 1 week Patient Instructions: A-fib (Atrial Fibrillation) (ED), Pleural Effusion Coding Level of Care Code ED Vamp Strap Ironer for Jus Burns
[2022-09-13 19:27] LABS: Basophils % 0.4 %; Eosinophils % 0.1 %; Hematocrit 33.9 % (37.0-47.0); Hemoglobin 9.6 g/dL (11.5-15.3); Lymphocytes # 0.9 10^3/uL (0.8-4.8); Lymphocytes % 11.8 %; Mean Corpuscular HGB Conc 28.3 g/dL (30.0-36.0); Mean Corpuscular Hemoglobin 31.1 pg (28.0-34.0); Mean Corpuscular Volume 109.7 fl (81-99); Mean Platelet Volume 10.9 fL (7.4-10.4); Monocytes # 0.5 10^3/uL (0.2-0.9); Monocytes % 6.1 %; Neutrophils % 81.1 %; Nucleated Red Blood Cells % 0 %; Platelet Count 190 10^3/cmm (130-400); Red Blood Count 3.09 10^6/uL (4.1-5.3); Red Cell Distribution Width 15.5 % (12.1-15.1); White Blood Count 7.4 10^3/uL (4.0-10.0)
--- NOTE | 2022-09-13 19:34 | ECG_ITS ---
[facility] Test Date: 2022-09-13 Pat Name: Evelia Denton Department: Room: Gender: Female Forensic Manager: : 1935 Requested By: Barry Wen Order Number: [id number] Shereen MD: Maribel Figueroa M.D. Measurements Intervals [place] Rate: 73 P: 0 GA: 0 QRS: 121 QRSD: 98 T: 180 QT: 403 QTc: 445 Interpretive Statements ATRIAL FIBRILLATION RIGHT AXIS DEVIATION [QRS AXIS > 100] LOW QRS VOLTAGE IN PRECORDIAL LEADS [QRS DEFLECTION < 1.0 mV IN CHEST LEADS] INCOMPLETE RIGHT BUNDLE BRANCH BLOCK [90+ ms QRS DURATION, TERMINAL R IN V1/V2, 40+ ms S IN I/aVL/V4/V5/V6] SEPTAL MYOCARDIAL INFARCTION , PROBABLY OLD [40+ ms Q WAVE IN V1/V2] Compared to ECG 08/03/2022 10:38:52 Right-axis deviation now present Myocardial infarct finding still present Electronically Signed On 09-14-2022 21:17:23 CDT by Maribel Figueroa M.D. [email or web address]
[2022-09-13 19:43] LABS: Alanine Aminotransferase 11 U/L (0-33); Alkaline Phosphatase 60 U/L (35-105); Anion Gap 11.6 (5-19); Aspartate Amino Transferase 12 U/L (0-32); Blood Urea Nitrogen 24 mg/dL (8-23); Calcium 8.1 mg/dL (8.5-10.5); Carbon Dioxide 33 mmol/L (22-29); Chloride 102 mmol/L (98-107); Globulin 2.7 g/dL (1.3-4.6); Glucose 94 mg/dL (65-115); Osmolality Calculated 300 mOsm/kg (285-295); Potassium 3.6 mmol/L (3.5-5.1); Sodium 143 mmol/L (136-145); Total Bilirubin 0.4 mg/dL (0.15-1.2); Total Protein 5.7 g/dL (6.6-8.7)
[2022-09-13 20:09] VITALS: BP 136/85; PULSE 90; RESP 22; O2SAT 98
[2022-09-13 21:04] VITALS: BP 132/67; PULSE 91; RESP 22; O2SAT 94
== END 2022-09-13 21:05 | disposition home or self-care (01) ==
PROVIDERS: Emergency Provider Emergency Medicine; PCP Registered Nurse
DX: I48.91 Unspecified atrial fibrillation (principal); J90 Pleural effusion, not elsewhere classified; M79.672 Pain in left foot; M79.671 Pain in right foot; Z79.01 Long term (current) use of anticoagulants; Z79.84 Long term (current) use of oral hypoglycemic drugs; Z86.73 Personal history of transient ischemic attack (TIA), and cerebral infarction without residual deficits; I13.0 Hypertensive heart and chronic kidney disease with heart failure and stage 1 through stage 4 chronic kidney disease, or unspecified chronic kidney disease; E11.22 Type 2 diabetes mellitus with diabetic chronic kidney disease; N18.9 Chronic kidney disease, unspecified; I50.9 Heart failure, unspecified; E11.9 Type 2 diabetes mellitus without complications; E78.5 Hyperlipidemia, unspecified
CPT/HCPCS: 36415; 71045; 73630; 80053; 85025; 93005; 99285